=== PATIENT | female | born 1965 | race Caucasian/White ===

== ENCOUNTER 2017-03-02 14:23 | Inpatient (IN) ==
[2017-03-02] MEDS ORDERED: 0.9 % Sodium Chloride 1,000 ML IVC ONE (14:37)
[2017-03-02] MEDS ORDERED: Ondansetron 4 MG/2 ML VIAL IVP ONE (14:37)
[2017-03-02 15:07] LABS: Bilirubin,Urine Negative (Negative); Blood,Urine Moderate (Negative); Clarity,Urine Turbid (Clear); Color,Urine Yellow (Yellow); Glucose,Urine (UA) Normal (Normal); Ketones,Urine Negative (Negative); Leukocyte Esterase,Urine Large (Negative); Nitrite,Urine Negative (Negative); PH,Urine 6.5 pH Units (5.0-8.0); Protein,Urine Negative (Neg-Trace); Specific Gravity,Urine 1.008 (1.010-1.025); Urobilinogen,Urine Normal (Normal)
--- NOTE | 2017-03-02 15:08 | Emergency Department Note ---
Disposition Clinical Impression: Pyelonephritis Disposition: Admitted As Inpatient Condition: Good Referrals: NONE,PCP [Primary Care Provider] - Forms: ED Satisfaction Letter Time of Disposition: 17:23 General Adult HPI - General Chief complaint: ED Headache Stated complaint: "UTI, Diarrhea, and headache" Time Seen by Provider: 03/02/17 14:25 Source: patient, EMS Limitations: no limitations, physical limitation Nursing Notes Reviewed: Yes Vital Signs Reviewed: Yes - History of Present Illness HPI Narrative: 52 year old female presents to the ED via EMS for UTI/diarrhea and a temperature of 100.2 at home for the past 4 days. PAtine states that she has had kidney inections in the past and is now having chest pain without shortness of breath and is also experiencing a headache. Her headache is of usual character with her preivous headaches and has not changed in duration. She denesi neck pain, rigidty, senstivity to light or sound, or auras. Patient states that has has vomitted a few times NBNB, she states her diarrhea is watery without blood. Pain Scale: 10 - Related Data Home Medications Medication Instructions Recorded Confirmed Aripiprazole [Abilify] 15 mg PO DAILY 05/14/15 03/02/17 Aspirin Enteric Coated [Aspirin EC] 81 mg PO DAILY 05/14/15 03/02/17 Metoclopramide [Reglan] 5 mg PO QID 05/14/15 03/02/17 Verapamil [Isoptin] 80 mg PO DAILY 05/14/15 03/02/17 Omeprazole [PriLOSEC] 20 mg PO BID #0 07/03/15 03/02/17 ALPRAZolam [Xanax 0.5 MG Tablet] 0.5 mg PO HS 01/26/16 03/02/17 Acetaminophen [Tylenol] 650 mg PO Q6HR PRN 01/26/16 03/02/17 Bisacodyl [Dulcolax] 10 mg RC Q48H PRN 01/26/16 03/02/17 Cholecalciferol (D-3) [Vitamin D] 1,000 unit PO DAILY 01/26/16 03/02/17 Lactobacillus Acidophilus 1 mg PO DAILY 01/26/16 03/02/17 [Acidophilus Probiotic] Lidocaine HCl [Aspercreme] 1 appl TP TID PRN 01/26/16 03/02/17 Lisinopril-HCTZ 10-12.5 [Prinzide 1 each PO DAILY 01/26/16 03/02/17 10-12.5] Multivitamin [Zoo Chews] 1 each PO DAILY 01/26/16 03/02/17 Nystatin POWDER [Nystop] 1 appl TP BID 01/26/16 03/02/17 Phenyleph/Pramoxin/Glycr/W.pet 1 appl RC QID PRN 01/26/16 03/02/17 [Preparation H Cream] Polyethylene Glycol 3350 [MiraLAX] 17 gm PO DAILY PRN 01/26/16 03/02/17 Pravastatin Sodium [Pravachol] 20 mg PO HS 01/26/16 03/02/17 metFORMIN [Glucophage] 500 mg PO QPM 01/26/16 03/02/17 Oxybutynin Chloride [Ditropan Xl] 10 mg PO BID 03/02/17 03/02/17 Allergies Allergy/AdvReac Type Severity Reaction Status Date / Time alcohol Allergy Rash Verified 09/20/16 12:49 Amoxicillin [From Augmentin] Allergy Rash Verified 09/20/16 12:49 caffeine [From Cafergot] Allergy Rash Verified 09/20/16 12:49 cephalexin Allergy Rash Verified 09/20/16 15:54 clarithromycin [From Biaxin] Allergy Rash Verified 09/20/16 12:49 clavulanic acid Allergy Rash Verified 09/20/16 12:49 [From Augmentin] doxycycline Allergy Rash Verified 09/20/16 12:49 Ergotamine [From Cafergot] Allergy Rash Verified 09/20/16 12:49 nitrofurantoin Allergy Rash Verified 09/20/16 12:49 [From Macrodantin] Oxycodone [From Percocet] Allergy Rash Verified 09/20/16 12:49 Sulfa (Sulfonamide Allergy Rash Verified 09/20/16 12:49 Antibiotics) sulfabenzamide Allergy Rash Verified 09/20/16 12:49 Hydromorphone [From Dilaudid] AdvReac Headache Verified 09/20/16 12:49 morphine AdvReac Headache Verified 09/20/16 12:49 Constitutional: Denies: fever, chills, weakness, weight change Eyes: Denies: eye pain, eye discharge, vision change ENT ED: Denies: ear pain, throat pain, dental pain, hearing loss, epistaxis, congestion, dysphagia Cardiovascular: Denies: chest pain, palpitations, dyspnea on exertion, edema, syncope Respiratory: Denies: cough, dyspnea, wheezes, hemoptysis, stridor Gastrointestinal: Reports: nausea, vomiting, diarrhea. Denies: abdominal pain, constipation, hematemesis, melena, hematochezia Genitourinary: Reports: urgency, dysuria, frequency. Denies: hematuria, discharge Musculoskeletal: Denies: back pain, neck pain, arthralgia, myalgia Integumentary: Denies: rash, abrasion, lesions Neurological: Denies: headache, weakness, numbness, paresthesias, confusion, abnormal gait, vertigo Psychiatric: Denies: anxiety, depression, suicidal thoughts, homicidal thoughts , auditory hallucinations, visual hallucinations Endocrine: Denies: fatigue Hematological/Lymphatic: Denies: easy bleeding, easy bruising Allergic/Immunologic: Denies: facial swelling, urticaria Past Medical History - Past Medical History Medical history: Reports: diabetes, GERD, hyperlipidemia, hypertension, myocardial infarction, other Surgical history: Reports: angioplasty/stent, appendectomy, cholecystectomy, other (colonoscopy, [employer] 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[employer]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, kidney surgery X 6, right oopherectomy, wisdom teeth extraction) Psychiatric history: Reports: anxiety, depression, other - Social History Smoking Status: Never smoker Smokeless Tobacco Status: No Alcohol use: Reports: none Drug use: Reports: none Physical Exam - General Limitations: physical limitation General appearance: alert, in no apparent distress - Head Head exam: atraumatic, normocephalic, normal inspection - Eye Eye exam: Present: normal appearance, PERRL, EOMI - Expanded Eye Exam Pupils: Left: reactive - ENT ENT exam: normal exam, normal oropharynx, mucous membranes moist - Expanded ENT Exam External ear exam: Present: normal external inspection Mouth exam: Present: normal external inspection Teeth exam: Present: normal inspection Throat exam: Present: normal inspection - Neck Neck exam: Present: normal inspection, full ROM, trachea midline - Chest Chest inspection: Present: normal inspection, symmetric chest wall rise - Respiratory Respiratory exam: Present: normal lung sounds bilaterally - Cardiovascular Cardiovascular exam: Present: regular rate, normal rhythm, normal heart sounds - Abdominal Exam Abdominal exam: Present: soft, Non-Tender. Absent: tenderness, distention, guarding, rebound, rigidity - Extremities Exam Extremities exam: Present: normal inspection, full ROM. Absent: tenderness, pedal edema - Expanded Upper Extremity Exam Shoulder exam: Present: normal inspection, full ROM Arm exam: Present: normal inspection, full ROM Elbow exam: Present: normal inspection, full ROM Forearm/Wrist exam: Present: normal inspection, full ROM Hand exam: Present: normal inspection, full ROM Vascular exam: Normal: capillary refill, radial pulse - Expanded Lower Extremity Exam Hip/Pelvis exam: Present: normal inspection, full ROM Upper leg exam: Present: normal inspection, full ROM Knee exam: Present: normal inspection, full ROM Lower leg exam: Present: normal inspection, full ROM Ankle exam: Present: normal inspection, full ROM Foot/toe exam: Present: normal inspection, full ROM Neurovascular/Tendon exam: Absent: motor deficit, sensory deficit, tendon deficit - Back Exam Back exam: Present: normal inspection, full ROM. Absent: tenderness - Neurological Exam Neurological exam: Present: alert, oriented X3 - Expanded Neurological Exam Patient oriented to: Present: person, place, time Coma Scale Eye Opening: Spontaneous Coma Scale Motor Response: Obeys Commands Coma Scale Verbal Response: Oriented Coma Scale Total: 15 - Psychiatric Psychiatric exam: Present: normal affect, normal mood - Skin Skin exam: Present: warm, dry, intact, normal color Course Course Narrative: we will do a sepsis workup on junior and rule out UTI and C.diff - Consultations Consultation #1: discussed case with Dr. Adams and he has accepted junior for admision. Vital Signs Temperature 99.2 F 03/02/17 14:25 Pulse Rate 84 03/02/17 14:25 Respiratory Rate 16 03/02/17 14:25 Blood Pressure 144/80 03/02/17 14:25 O2 Sat by Pulse Oximetry 93 03/02/17 14:25 Temperature 99.2 F 03/02/17 14:25 Pulse Rate 84 03/02/17 14:25 Respiratory Rate 16 03/02/17 14:25 Blood Pressure 144/80 03/02/17 14:25 O2 Sat by Pulse Oximetry 93 03/02/17 14:25 Oxygen Delivery Oxygen Delivery Room Air Medical Decision Making - Lab Data Result diagrams: 03/02/17 15:05 03/02/17 15:05 Lab Results 03/02/17 03/02/17 03/02/17 Range/Units 14:20 15:05 15:05 WBC 13.5 H (4.3-11.1) K/mcL RBC 3.55 L (3.82-4.97) M/mcL Hgb 9.0 L (11.5-15.4) g/dL Hct 28.8 L (35.3-44.9) % MCV 81.1 L (83.0-100.0) fL MCH 25.4 L (28.0-33.3) pg MCHC 31.3 L (31.6-35.5) g/dL RDW 17.5 H (11.5-14.5) % Plt Count 239 (140-400) K/mcL MPV 10.1 (9.4-12.4) fL Immature Gran % 0.4 (0-4) % Seg Neutrophils % 78.0 % Lymphocytes % 13.0 % Monocytes % 8.3 % Eosinophils % 0.1 % Basophils % 0.2 % Neutrophils # 10.6 H (1.6-8.9) K/mcL Lymphocytes # 1.8 (0.6-4.6) K/mcL Monocytes # 1.1 (0.0-1.3) K/mcL Eosinophils # 0.0 (0.0-0.6) K/mcL Basophils # 0.0 (0.0-0.2) K/mcL Immature Plt Fraction 5.3 (1.1-6.1) % PT 11.7 (9.4-12.1) Seconds INR 1.1 APTT 24.3 L (26.0-36.0) Seconds Sodium (136-145) mEq/L Potassium (3.5-4.5) mEq/L Chloride (98-109) mEq/L Carbon Dioxide (19-29) mEq/L BUN (7-20) mg/dL Creatinine (0.57-1.11) mg/dL Est GFR ( Amer) (> 60) Est GFR (Non-Af Amer) (> 60) BUN/Creatinine Ratio (6-26) Glucose (70-99) mg/dL Calculated Osmolality (280-300) Lactic Acid (0.5-2.2) mmol/L Calcium (8.6-10.8) mg/dL Total Bilirubin (0.2-1.2) mg/dL Direct Bilirubin (0.0-0.5) mg/dL Indirect Bilirubin (0.0-1.2) mg/dL AST (5-34) Units/L ALT (0-55) Units/L Alkaline Phosphatase (38-126) Units/L Troponin I (0-0.03) ng/mL Serum Total Protein (6.0-8.3) g/dL Albumin (3.5-5.0) g/dL Globulin (2.4-3.5) g/dL Albumin/Globulin Ratio (1.1-2.2) Amylase (25-125) Units/L Lipase (8-78) Units/L Urine Color Yellow (Yellow) Urine Clarity Turbid A (Clear) Urine pH 6.5 (5.0-8.0) pH Units Ur Specific [place] 1.008 L (1.010-1.025) Urine Protein Negative (Neg-Trace) mg/dL Urine Glucose (UA) Normal (Normal) mg/dL Urine Ketones Negative (Negative) mg/dL Urine Blood Moderate H (Negative) Urine Nitrite Negative (Negative) Urine Bilirubin Negative (Negative) Urine Urobilinogen Normal (Normal) mg/dL Ur Leukocyte Esterase Large H (Negative) Urine Microscopic RBC 0-3 (0-3) per hpf Urine Microscopic WBC TNTC H (0-3) per hpf Ur Squamous Epith Cells Many H (None-Few) per lpf Urine Bacteria Many H (None-Few) per hpf Hyaline Casts Test Not Performed Ur Culture Indicated? YES A (NO) 03/02/17 03/02/17 03/02/17 Range/Units 15:05 15:05 15:05 WBC (4.3-11.1) K/mcL RBC (3.82-4.97) M/mcL Hgb (11.5-15.4) g/dL Hct (35.3-44.9) % MCV (83.0-100.0) fL MCH (28.0-33.3) pg MCHC (31.6-35.5) g/dL RDW (11.5-14.5) % Plt Count (140-400) K/mcL MPV (9.4-12.4) fL Immature Gran % (0-4) % Seg Neutrophils % % Lymphocytes % % Monocytes % % Eosinophils % % Basophils % % Neutrophils # (1.6-8.9) K/mcL Lymphocytes # (0.6-4.6) K/mcL Monocytes # (0.0-1.3) K/mcL Eosinophils # (0.0-0.6) K/mcL Basophils # (0.0-0.2) K/mcL Immature Plt Fraction (1.1-6.1) % PT (9.4-12.1) Seconds INR APTT (26.0-36.0) Seconds Sodium 121 L (136-145) mEq/L Potassium 3.7 (3.5-4.5) mEq/L Chloride 93 L (98-109) mEq/L Carbon Dioxide 18 L (19-29) mEq/L BUN 26 H (7-20) mg/dL Creatinine 0.74 (0.57-1.11) mg/dL Est GFR ( Amer) > 60 (> 60) Est GFR (Non-Af Amer) > 60 (> 60) BUN/Creatinine Ratio 35 H (6-26) Glucose 85 (70-99) mg/dL Calculated Osmolality 256 L (280-300) Lactic Acid 0.5 (0.5-2.2) mmol/L Calcium 8.8 (8.6-10.8) mg/dL Total Bilirubin 0.8 (0.2-1.2) mg/dL Direct Bilirubin 0.3 (0.0-0.5) mg/dL Indirect Bilirubin 0.5 (0.0-1.2) mg/dL AST 24 (5-34) Units/L ALT 24 (0-55) Units/L Alkaline Phosphatase 144 H (38-126) Units/L Troponin I 0.00 (0-0.03) ng/mL Serum Total Protein 6.7 (6.0-8.3) g/dL Albumin 2.9 L (3.5-5.0) g/dL Globulin 3.8 H (2.4-3.5) g/dL Albumin/Globulin Ratio 0.8 L (1.1-2.2) Amylase 44 (25-125) Units/L Lipase 12 (8-78) Units/L Urine Color (Yellow) Urine Clarity (Clear) Urine pH (5.0-8.0) pH Units Ur Specific [place] (1.010-1.025) Urine Protein (Neg-Trace) mg/dL Urine Glucose (UA) (Normal) mg/dL Urine Ketones (Negative) mg/dL Urine Blood (Negative) Urine Nitrite (Negative) Urine Bilirubin (Negative) Urine Urobilinogen (Normal) mg/dL Ur Leukocyte Esterase (Negative) Urine Microscopic RBC (0-3) per hpf Urine Microscopic WBC (0-3) per hpf Ur Squamous Epith Cells (None-Few) per lpf Urine Bacteria (None-Few) per hpf Hyaline Casts Ur Culture Indicated? (NO)
[2017-03-02 15:10] LABS: Bacteria,Urine Many per hpf (None-Few); RBC,Urine 0-3 per hpf (0-3); Squamous Epithelial Cell,Urine Many per lpf (None-Few); WBC,Urine TNTC per hpf (0-3)
[2017-03-02 15:14] LABS: Basophils % 0.2 %; Eosinophils % 0.1 %; Hematocrit 28.8 % (35.3-44.9); Immature Granulocytes % 0.4 % (0-4); Immature Platelets 5.3 % (1.1-6.1); Lymphocytes # 1.8 K/mcL (0.6-4.6); Mean Corpuscular HGB Conc 31.3 g/dL (31.6-35.5); Mean Corpuscular Hemoglobin 25.4 pg (28.0-33.3); Mean Corpuscular Volume 81.1 fL (83.0-100.0); Mean Platelet Volume 10.1 fL (9.4-12.4); Monocytes # 1.1 K/mcL (0.0-1.3); Monocytes % 8.3 %; Neutrophils # 10.6 K/mcL (1.6-8.9); Platelet Count 239 K/mcL (140-400); Red Blood Count 3.55 M/mcL (3.82-4.97); Red Cell Distribution Width 17.5 % (11.5-14.5)
[2017-03-02 15:27] LABS: INR 1.1; Prothrombin Time 11.7 Seconds (9.4-12.1)
[2017-03-02 15:30] LABS: Activated Partial Thrombo Time 24.3 Seconds (26.0-36.0)
[2017-03-02 15:33] LABS: Alanine Aminotransferase 24 Units/L (0-55); Albumin 2.9 g/dL (3.5-5.0); Albumin/Globulin Ratio 0.8 (1.1-2.2); Alkaline Phosphatase 144 Units/L (38-126); Amylase 44 Units/L (25-125); Aspartate Amino Transferase 24 Units/L (5-34); BUN/Creatinine Ratio 35 (6-26); Bilirubin,Direct 0.3 mg/dL (0.0-0.5); Bilirubin,Indirect 0.5 mg/dL (0.0-1.2); Bilirubin,Total 0.8 mg/dL (0.2-1.2); Blood Urea Nitrogen 26 mg/dL (7-20); Calcium 8.8 mg/dL (8.6-10.8); Carbon Dioxide 18 mEq/L (19-29); Chloride 93 mEq/L (98-109); Globulin 3.8 g/dL (2.4-3.5); Glucose 85 mg/dL (70-99); Lipase 12 Units/L (8-78); Osmolality,Calculated 256 (280-300); Potassium 3.7 mEq/L (3.5-4.5); Sodium 121 mEq/L (136-145); Total Protein 6.7 g/dL (6.0-8.3); eGFR For African Americans > 60 (> 60); eGFR For Non-African Americans > 60 (> 60)
[2017-03-02] MEDS ORDERED: Piperacillin/Tazobactam 3.375 GM in D5% in Water (Mini-Bag+) 100 ML IVPB ONE (15:34)
[2017-03-02] MEDS ORDERED: Naloxone 0.4 MG/ML INJ IVP PRN (19:05)
[2017-03-02] MEDS ORDERED: *HR* Dextrose 50 % in Water (Syg) 50 ML SYRINGE IVP PRN (19:12)
[2017-03-02] MEDS ORDERED: Dextrose Gel 15 GM PO PRN ×2 (19:12)
[2017-03-02] MEDS ORDERED: D5% in Water 1,000 ML IVC PRN (19:12)
--- NOTE | 2017-03-02 19:16 | Internal Med History&Physical ---
<Carla Khoury - Last Filed: 03/02/17 20:12> Date of Encounter: 03/02/17 Time of Encounter: 19:14 Assessment and Plan (1) Pyelonephritis Current visit: Yes Status: Acute hx recurrent UTIs (straight caths self at home). Symptomatic with fever, chills , flank pain. WBC 13K, lactic acid normal. ABD CT with right perinephric fat stranding and retroperitoneal adenopathy concerning for pyelonephritis, hydronephrosis and hydroureter extending to the ileal conduit (not significantly changed from previous). Last urine culture with Escherichia coli, sensitive to Zosyn. Continue Zosyn that was started in the ED. Renal ultrasound pending. Nephrology consulted. (2) Anemia Current visit: Yes Status: Acute Hgb 9; previously 12. Denies melena, no hematochezia. Patient reports bleeding hemorrhoids at times. No obvious bleeding on exam, hemodynamically stable. Check occult stool, monitor H&H. Iron studies pending. Qualifiers: Anemia type: unspecified type Qualified Code(s): D64.9 - Anemia, unspecified (3) Hyponatremia Current visit: Yes Status: Acute Na 120; baseline normal. Neurologically intact on exam, continue IV fluids. [place] home HCTZ. Monitor repeat CMP. Nephrology consulted (4) Diabetes Current visit: No Status: Chronic per hx. holding home oral hypoglycemics. SSI while inpatient. Monitor blood sugar and titrate PRN Qualifiers: Diabetes mellitus type: type 2 Diabetes mellitus complication status: with unspecified complications Diabetes mellitus senior care insulin use: unspecified senior care insulin use status Qualified Code(s): E11.8 - Type 2 diabetes mellitus with unspecified complications (5) CAD (coronary artery disease) Current visit: Yes Status: Acute per hx. Asymptomatic, denies chest pain. Cont ASA, CCB, statin Qualifiers: Coronary Disease-Associated Artery/Lesion type: [place] artery Associated angina: without angina Qualified Code(s): I25.10 - Atherosclerotic heart disease of [place] coronary artery without angina pectoris (6) HTN (hypertension) Current visit: No Status: Chronic per hx. BP variable but controlled. Cont home CCB, holding HCTZ with hyponatremia. Monitor BP and titrate PRN Qualifiers: Hypertension type: essential hypertension Qualified Code(s): I10 - Essential (primary) hypertension (7) Spina bifida Current visit: No Status: Chronic Per history. Appears at baseline, supportive care. Plan to return home with home healthcare. Qualifiers: Qualified Code(s): Q05.9 - Spina bifida, unspecified (8) DVT prophylaxis Current visit: No Status: Acute SCDs Internal Medicine - H&P: HPI Chief complaint: I have a UTI Admitted From: Home Plans for Post Hospital Care: Home History of present illness: Ms. Mitchell is a 52 year old female with PMH spina bifida, CAD, hypertension, diabetes and recurrent UTIs who presented to [facility] on 03/02/2017 with complaints of fevers chills and low back pain. She was found to have pyelonephritis and was admitted for IV ATB. Information obtained from chart review and patient report. Patient says she knows when she has a UTI and sx's consistent with previous UTIs. She reports fevers, chills, lower back pain and dysuira for the last few days. Sx's have gotten progressively worse, nothing makes better. Says she has hemorrhoids that bleed when she is constipated. 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, kidney surgery X 6, right oopherectomy, wisdom teeth extraction) - Social History Smoking Status: Never smoker Smokeless Tobacco Status: No Alcohol use: none Drug use: none - Family History Mother Adopted: No Family Member Ethnicity: Non- Living Status: Still Living Hx Family Cardiac Disorders: Yes (angina heart failure) Hx Family Respiratory Disorders: No Hx Family Cancer: No Hx Family GI Disorders: No Hx Family Endocrine Disorder: No Hx Family Neuromuscular Disorders: No Hx Family Neurologic Disorders: No Hx Family HEENT Disorders: No Hx Family Autoimmune Disorders: No Internal Medicine - H&P: Meds Aripiprazole [Abilify] 15 mg PO DAILY 05/14/15 [History] Aspirin Enteric Coated [Aspirin EC] 81 mg PO DAILY 05/14/15 [History] Metoclopramide [Reglan] 5 mg PO QID 05/14/15 [History] Verapamil [Isoptin] 80 mg PO DAILY 05/14/15 [History] Omeprazole [PriLOSEC] 20 mg PO BID #0 07/03/15 [History] ALPRAZolam [Xanax 0.5 MG Tablet] 0.5 mg PO HS 01/26/16 [History] Acetaminophen [Tylenol] 650 mg PO Q6HR PRN 01/26/16 [History] Bisacodyl [Dulcolax] 10 mg RC Q48H PRN 01/26/16 [History] Cholecalciferol (D-3) [Vitamin D] 1,000 unit PO DAILY 01/26/16 [History] Lactobacillus Acidophilus [Acidophilus Probiotic] 1 mg PO DAILY 01/26/16 [ History] Lidocaine HCl [Aspercreme] 1 appl TP TID PRN 01/26/16 [History] Lisinopril-HCTZ 10-12.5 [Prinzide 10-12.5] 1 each PO DAILY 01/26/16 [History] Multivitamin [Zoo Chews] 1 each PO DAILY 01/26/16 [History] Nystatin POWDER [Nystop] 1 appl TP BID 01/26/16 [History] Phenyleph/Pramoxin/Glycr/W.pet [Preparation H Cream] 1 appl RC QID PRN 01/26/16 [History] Polyethylene Glycol 3350 [MiraLAX] 17 gm PO DAILY PRN 01/26/16 [History] Pravastatin Sodium [Pravachol] 20 mg PO HS 01/26/16 [History] metFORMIN [Glucophage] 500 mg PO QPM 01/26/16 [History] Oxybutynin Chloride [Ditropan Xl] 10 mg PO BID 03/02/17 [History] 3 Allergy/AdvReac Type Severity Reaction Status Date / Time alcohol Allergy Rash Verified 09/20/16 12:49 Amoxicillin [From Augmentin] Allergy Rash Verified 09/20/16 12:49 caffeine [From Cafergot] Allergy Rash Verified 09/20/16 12:49 cephalexin Allergy Rash Verified 09/20/16 15:54 clarithromycin [From Biaxin] Allergy Rash Verified 09/20/16 12:49 clavulanic acid Allergy Rash Verified 09/20/16 12:49 [From Augmentin] doxycycline Allergy Rash Verified 09/20/16 12:49 Ergotamine [From Cafergot] Allergy Rash Verified 09/20/16 12:49 nitrofurantoin Allergy Rash Verified 09/20/16 12:49 [From Macrodantin] Oxycodone [From Percocet] Allergy Rash Verified 09/20/16 12:49 Sulfa (Sulfonamide Allergy Rash Verified 09/20/16 12:49 Antibiotics) sulfabenzamide Allergy Rash Verified 09/20/16 12:49 Hydromorphone [From Dilaudid] AdvReac Headache Verified 09/20/16 12:49 morphine AdvReac Headache Verified 09/20/16 12:49 All Systems PM: A 10-system review of systems was performed and is negative for pertinent findings except as documented above in the HPI. - Constitutional Constitutional: chills, fatigue, fever(s), no night sweats - EENT Eyes: no change in vision, no discharge, no pain, no photophobia Ears: no ear discharge, no ear pain, no tinnitus Nose, mouth and throat: no dysphagia, no nasal discharge, no neck pain, no sore throat - Cardiovascular Cardiovascular ROS IM: no chest pain, no diaphoresis, no dyspnea, no lightheadedness, no palpitations, no syncope - Respiratory Respiratory: no cough, no dyspnea, no wheezing, no excessive phlegm production - Gastrointestinal Gastrointestinal: no abdominal pain, no diarrhea, no hematemesis, no hematochezia, no melena, no nausea, no vomiting - Genitourinary Genitourinary: difficulty voiding, dysuria, flank pain, no change in urinary stream, no hematuria - Musculoskeletal Musculoskeletal ROS IM: no numbness, no tingling - Integumentary Integumentary IM: no rash, no unusual bruising - Neurological Neurological ROS: no confusion, no convulsions, no focal weakness, no numbness, no tingling, no tremor(s) - Hematologic/Lymphatic Hematologic/Lymphatic: no easy bruising - Constitutional Vitals: Temp Pulse Resp BP Pulse Ox 99.2 F 84 18 108/54 93 03/02/17 14:25 03/02/17 14:25 03/02/17 17:59 03/02/17 17:59 03/02/17 14:25 General appearance: Present: A&O X 3, no acute distress - Head Head exam: Present: atraumatic, normocephalic - Eye Eye exam: Present: PERRL, conjuntiva pink, sclera anicteric Pupils: Present: PERRL - Neck Neck exam general surgery: Present: supple, trachea midline. Absent: lymphadenopathy - Respiratory Respiratory exam: Present: CTAB. Absent: accessory muscle use, rales, rhonchi, wheezes - Cardiovascular Cardiovascular exam: Present: RRR, +S1, +S2. Absent: diastolic murmur, gallop, rubs, systolic murmur - GI/Abdominal GI/Abdominal exam: Present: normal bowel sounds, soft, no peritoneal signs. Absent: distended, tenderness - Extremities Exam Extremities exam: Present: pedal edema, warm, radial pulses palpable and symmetrical. Absent: calf tenderness, cyanotic - Neurological Exam Neurological exam: Present: CN II-XII intact, oriented X3, no focal deficits. Absent: pronater drift, facial droop, speech deficit - Skin Skin exam: Present: dry, intact Internal Med - H&P Results - Labs CBC & Chem 7: 03/02/17 15:05 03/02/17 15:05 <Virginia Ma - Last Filed: 03/02/17 23:27> Date of Encounter: 03/02/17 Internal Medicine - H&P: HPI History of present illness: Ms. Mitchell is a 52 year old female All Systems PM: A 10-system review of systems was performed and is negative for pertinent findings except as documented above in the HPI. - Constitutional Vitals: Temp Pulse Resp BP Pulse Ox 98.8 F 95 14 129/60 94 03/02/17 19:55 03/02/17 19:55 03/02/17 19:55 03/02/17 19:55 03/02/17 19:55 Internal Med - H&P Results - Labs CBC & Chem 7: 03/02/17 21:58 03/02/17 15:05 Labs: Short CBC 03/02/17 Range/Units 21:58 Hgb 9.5 L (11.5-15.4) g/dL Hct 30.4 L (35.3-44.9) % - Attending Attestation I have seen and examined the patient independently. 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 Khoury regarding management plan. I have reviewed and agree with the documentation. Patient has history of spina bifida, has difficult for urination, needs self catheter at home. Multiple hospitalization for UTI. Will consider pyelonephritis based on CT imaging. Continue IV fluid and IV Zosyn. Closely monitor patient. Patient has hyponatremia, place her on IV 0.9% saline, closely monitor sodium level, goal is correction not over 8-10 mEq in first 24 hours.
[2017-03-02] MEDS ORDERED: ALPRAZolam 0.5 MG TABLET PO SCH (21:00)
[2017-03-02] MEDS: Acetaminophen 325 MG TABLET PO PRN (21:14)
[2017-03-02] MEDS: 0.9 % Sodium Chloride 1,000 ML IVC SCH (21:44)
[2017-03-02 22:08] LABS: Hematocrit 30.4 % (35.3-44.9); Hemoglobin 9.5 g/dL (11.5-15.4)
[2017-03-02] MEDS: Ondansetron 4 MG/2 ML VIAL IVP PRN (22:19)
[2017-03-02] MEDS: Insulin LISPRO 300 UNITS/3 ML VIAL SQ SCH (22:20)
[2017-03-02] MEDS: Piperacillin/Tazobactam 3.375 GM in D5% in Water (Mini-Bag+) 100 ML IVPB SCH (23:56)
[2017-03-03 05:54] LABS: Immature Platelets 4.9 % (1.1-6.1); Mean Corpuscular Hemoglobin 25.4 pg (28.0-33.3); Mean Corpuscular Volume 81.9 fL (83.0-100.0); Mean Platelet Volume 10.6 fL (9.4-12.4); Red Blood Count 3.54 M/mcL (3.82-4.97); Red Cell Distribution Width 17.6 % (11.5-14.5)
[2017-03-03 06:03] LABS: % Iron Saturation 6 % (15-50); Alanine Aminotransferase 23 Units/L (0-55); Albumin 2.7 g/dL (3.5-5.0); Albumin/Globulin Ratio 0.7 (1.1-2.2); Alkaline Phosphatase 126 Units/L (38-126); Aspartate Amino Transferase 18 Units/L (5-34); BUN/Creatinine Ratio 22 (6-26); Bilirubin,Total 0.6 mg/dL (0.2-1.2); Blood Urea Nitrogen 17 mg/dL (7-20); Calcium 8.8 mg/dL (8.6-10.8); Carbon Dioxide 20 mEq/L (19-29); Chloride 105 mEq/L (98-109); Globulin 3.9 g/dL (2.4-3.5); Glucose 71 mg/dL (70-99); Iron 17 mcg/dL (50-170); Osmolality,Calculated 284 (280-300); Potassium 3.5 mEq/L (3.5-4.5); Total Protein 6.6 g/dL (6.0-8.3); Transferrin 203 mg/dL (180-382); eGFR For African Americans > 60 (> 60); eGFR For Non-African Americans > 60 (> 60)
[2017-03-03 06:04] LABS: Sodium 137 mEq/L (136-145)
--- NOTE | 2017-03-03 08:34 | Nephrology Consult Note ---
Date of Encounter: 03/03/17 Time of Encounter: 08:05 Assessment and Plan (1) Hyponatremia Current Visit: Yes Status: Acute Hyponatremia most likely in setting of GI losses with HCTZ contributing. Normal sodium levels prior. Sodium corrected 137. Renal fct normal. TSH, Cortisol and Renal US pending. Would continue IV fluids until oral intake adequate. Will continue to monitor. History of Present Illness - Reason for Consult hyponatremia - History of Present Illness Ms. Mitchell is a 52 year old female with UTI, diarrhea and vomiting for past 4 days with temp 100.2 at home. Also complained of chest pain and headache. PMH of chronic UTI's in setting of urological reconstruction in setting of spina bifida, paraplegic. Straight caths every 4-6 hours so as not to be incontinent of urine. 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 Initial labs: Sodium 121, K 3.7, bicarb 18, creat 0.74, GFR > 60, Hgb 9.5, tsat 6. Urine culture, TSH, cortisol pending. IV 0.9 NS at 100/hr. Last urine culture with Escherichia coli, sensitive to Zosyn. Zosyn continued. CT Abd/ Pelvis-right perinephric stranding and retroperitoneal adenopathy concerning for pyelonephritis. Degree of hydronephrosis and hydroureter not substantially changed from previous exam. Absent urinary bladder. Ms. Mitchell denies excessive fluid intake, drinks 3-16 ounce bottles of water a day. States prior to recent illness, eats normal amounts of fluids. Home meds noted on HCTZ 12.5 mg daily, denies any psych medications. SToday Sodium 137. Past Med Surg Social Fam HX - Past Medical History Medical history: diabetes, GERD, hyperlipidemia, hypertension, myocardial infarction, other Psychiatric history: anxiety, depression, other - Past Surgical History Surgical History: angioplasty/stent, appendectomy, cholecystectomy, other - Social History Smoking Status: Never smoker Smokeless Tobacco Status: No Alcohol use: none Drug use: none - Family History Mother Adopted: No Family Member Ethnicity: Non- Living Status: Still Living Hx Family Cardiac Disorders: Yes (angina heart failure) Hx Family Respiratory Disorders: No Hx Family Cancer: No Hx Family GI Disorders: No Hx Family Endocrine Disorder: No Hx Family Neuromuscular Disorders: No Hx Family Neurologic Disorders: No Hx Family HEENT Disorders: No Hx Family Autoimmune Disorders: No Medications and Allergies Aripiprazole [Abilify] 15 mg PO DAILY 05/14/15 [History] Aspirin Enteric Coated [Aspirin EC] 81 mg PO DAILY 05/14/15 [History] Metoclopramide [Reglan] 5 mg PO QID 05/14/15 [History] Verapamil [Isoptin] 80 mg PO DAILY 05/14/15 [History] Omeprazole [PriLOSEC] 20 mg PO BID #0 07/03/15 [History] ALPRAZolam [Xanax 0.5 MG Tablet] 0.5 mg PO HS 01/26/16 [History] Acetaminophen [Tylenol] 650 mg PO Q6HR PRN 01/26/16 [History] Bisacodyl [Dulcolax] 10 mg RC Q48H PRN 01/26/16 [History] Cholecalciferol (D-3) [Vitamin D] 1,000 unit PO DAILY 01/26/16 [History] Lactobacillus Acidophilus [Acidophilus Probiotic] 1 mg PO DAILY 01/26/16 [ History] Lidocaine HCl [Aspercreme] 1 appl TP TID PRN 01/26/16 [History] Lisinopril-HCTZ 10-12.5 [Prinzide 10-12.5] 1 each PO DAILY 01/26/16 [History] Multivitamin [Zoo Chews] 1 each PO DAILY 01/26/16 [History] Nystatin POWDER [Nystop] 1 appl TP BID 01/26/16 [History] Phenyleph/Pramoxin/Glycr/W.pet [Preparation H Cream] 1 appl RC QID PRN 01/26/16 [History] Polyethylene Glycol 3350 [MiraLAX] 17 gm PO DAILY PRN 01/26/16 [History] Pravastatin Sodium [Pravachol] 20 mg PO HS 01/26/16 [History] metFORMIN [Glucophage] 500 mg PO QPM 01/26/16 [History] Oxybutynin Chloride [Ditropan Xl] 10 mg PO BID 03/02/17 [History] 3 Allergy/AdvReac Type Severity Reaction Status Date / Time alcohol Allergy Rash Verified 09/20/16 12:49 Amoxicillin [From Augmentin] Allergy Rash Verified 09/20/16 12:49 caffeine [From Cafergot] Allergy Rash Verified 09/20/16 12:49 cephalexin Allergy Rash Verified 09/20/16 15:54 clarithromycin [From Biaxin] Allergy Rash Verified 09/20/16 12:49 clavulanic acid Allergy Rash Verified 09/20/16 12:49 [From Augmentin] doxycycline Allergy Rash Verified 09/20/16 12:49 Ergotamine [From Cafergot] Allergy Rash Verified 09/20/16 12:49 nitrofurantoin Allergy Rash Verified 09/20/16 12:49 [From Macrodantin] Oxycodone [From Percocet] Allergy Rash Verified 09/20/16 12:49 Sulfa (Sulfonamide Allergy Rash Verified 09/20/16 12:49 Antibiotics) sulfabenzamide Allergy Rash Verified 09/20/16 12:49 Hydromorphone [From Dilaudid] AdvReac Headache Verified 09/20/16 12:49 morphine AdvReac Headache Verified 09/20/16 12:49 Review of Systems All Systems: reviewed and no additional remarkable complaints except as stated Exam - Vital Signs Vital signs: Initial Vital Signs Temp Pulse Resp BP Pulse Ox 99.2 F 84 16 144/80 93 03/02/17 14:25 03/02/17 14:25 03/02/17 14:25 03/02/17 14:25 03/02/17 14:25 Vital Signs - Last 8 Hours Temp Pulse Resp BP Pulse Ox 03/03/17 06:42 99.1 F 89 14 110/70 92 03/03/17 04:00 98.3 F 89 14 106/72 90 03/03/17 00:38 98.8 F 98 14 92/63 96 Intake and Output 03/02/17 03/03/17 03/03/17 23:59 07:59 15:59 Intake Total 0 / 100 1394 / 1394 Output Total 1000 / 1000 2400 / 2400 Balance -1000 / -900 -1006 / -1006 Intake: IV Fluids 624 / 624 0.9 % Sodium Chloride 1, 524 / 524 000 ML @ 100 mls/hr IVC . Q10H [facility] Rx#:[id number] Zosyn 3.375 GM In 100 / 100 Dextrose 5% (Minibag+) 100 ML 100 ML @ 25 mls/hr IVPB Q8HR [facility] Rx#: [id number] Oral 0 / 0 770 / 770 Output: Catheter 1000 / 1000 2400 / 2400 Other: Stool Size Moderate Stool Consistency soft formed Stool Color Brown # Bowel Movement Diapers 4 0 Weight 63.458 kg 63.095 kg Blood Glucose* 73 Patient Weight 03/03/17 23:59 Weight 63.095 kg - General Appearance General appearance: well-developed, well-nourished, appears started age EENT: mucous membranes moist Neck: no JVD Respiratory: clear Cardiology: no edema, regular rate, regular rhythm Gastrointestinal: normoactive bowel sounds, no tenderness Integumentary: warm and dry Neurologic: alert and oriented x3 Psychiatric: mood/affect appropriate, cooperative Results - Lab Results 03/03/17 05:36 03/03/17 05:36 Most recent lab results Calcium 8.8 mg/dL (8.6-10.8) 03/03/17 05:36 Consult Discharge Plan - Plan Referrals: Lorena Velazquez MD [Primary Care Provider] -
[2017-03-03] MEDS: ARIPiprazole 5 MG TABLET PO SCH (08:35)
[2017-03-03] MEDS: Aspirin Enteric Coated 81 MG Tablet PO SCH (08:35)
[2017-03-03] MEDS: 0.9 % Sodium Chloride 1,000 ML IVC SCH (08:36)
[2017-03-03] MEDS: Insulin LISPRO 300 UNITS/3 ML VIAL SQ SCH ×4 (08:36→20:46)
[2017-03-03] MEDS: Piperacillin/Tazobactam 3.375 GM in D5% in Water (Mini-Bag+) 100 ML IVPB SCH ×3 (08:36→23:13)
[2017-03-03 08:48] LABS: Thyroid Stimulating Hormone 2.224 mcIU/mL (0.350-4.840)
--- NOTE | 2017-03-03 09:12 | Internal Med Progress Note ---
<[email or web address] fuller - Last Filed: 03/03/17 14:43> Date of Encounter: 03/03/17 Time of Encounter: 08:15 - Assessment and plan (1) Pyelonephritis Current Visit: Yes Status: Acute Assessment and plan: Hx of recurrent UTIs, patient straight caths at home 2/2 to paraplegia 2/2 spina bifida. pt last had UTI 12/29 with E. Coli sensitive to zosyn. CT abd shows fat stranding and retroperitoneal adenopathy consistent with pyelonephritis. Nephrology on board. UA showed blood, leuk esterase, TNTC WBC, man squams, many bacteria. WBC down from 13.5 to 8.9 Prelim Urine Cx growing E. Coli Continue Zosyn (2) Hyponatremia Current Visit: Yes Status: Acute Assessment and plan: resolved. likely secondary to GI loses. Patient Na 120 on admission. Patient was given NS 0.9% Na 137 this morning. Fluids were stopped. No neurological deficits on exam. TSH, cortisol normal. continue to monitor (3) Anemia Current Visit: Yes Status: Acute Assessment and plan: Patient's Hgb 9.0 on admission. Hgbs 9.5, 9.0, 9.1 subsequently last hgb prior to admission 09/20/16 was 12.6 micorcytic Likely Iron deficiency 2/2 to blood loss patient has hx of bleeding hemorrhoids. Patient hemodynamically stable. No signs of bleeding on exam. Iron 17, % Saturation 6, Transferrin 203 continue to monitor. Transfuse if less than 7 Qualifiers: Anemia type: unspecified type Qualified Code(s): D64.9 - Anemia, unspecified (4) Diabetes Current Visit: No Status: Chronic Assessment and plan: Chronic, Stable. continue SSI, Diabetic diet, acuchecks Qualifiers: Diabetes mellitus type: type 2 Diabetes mellitus complication status: with unspecified complications Diabetes mellitus fdc insulin use: unspecified fdc insulin use status Qualified Code(s): E11.8 - Type 2 diabetes mellitus with unspecified complications (5) HTN (hypertension) Current Visit: No Status: Chronic Assessment and plan: Chronic, stable. Continue CCB continue to hold HCTZ Qualifiers: Hypertension type: essential hypertension Qualified Code(s): I10 - Essential (primary) hypertension (6) Spina bifida Current Visit: No Status: Chronic Assessment and plan: Chronic, Stable. Qualifiers: Spinal region: unspecified Presence of hydrocephalus: unspecified hydrocephalus presence Qualified Code(s): Q05.9 - Spina bifida, unspecified (7) CAD (coronary artery disease) Current Visit: Yes Status: Acute Assessment and plan: Chronic, Stable. No current CP. Continue home meds. Qualifiers: Coronary Disease-Associated Artery/Lesion type: [place] artery Associated angina: without angina Qualified Code(s): I25.10 - Atherosclerotic heart disease of [place] coronary artery without angina pectoris - Subjective Interval history: Pt seen and examined by me at bedside. Patient reports low back pain, diarrhea, dysuria. Patient was recently treated for an ecoli UTI/pyelonephritis at the end of december that was sensitive to zosyn. - Constitutional Vitals: Temp Pulse Resp BP Pulse Ox 99.1 F 89 14 110/70 92 03/03/17 06:42 03/03/17 06:42 03/03/17 06:42 03/03/17 06:42 03/03/17 08:51 General appearance: Present: A&O X 3, no acute distress - Head Head exam: Present: atraumatic, normocephalic - Eye Eye exam: Present: PERRL, conjuntiva pink, sclera anicteric Pupils: Present: PERRL - Neck Neck exam general surgery: Present: supple, trachea midline - Respiratory Respiratory exam: Present: CTAB. Absent: accessory muscle use, rales, rhonchi, wheezes - Cardiovascular Cardiovascular exam: Present: RRR, +S1, +S2. Absent: diastolic murmur, gallop, rubs, systolic murmur - GI/Abdominal GI/Abdominal exam: Present: normal bowel sounds, soft, tenderness (RUQ), no peritoneal signs. Absent: distended - Extremities Exam Extremities exam: Present: warm. Absent: calf tenderness, cyanotic, pedal edema - Back Exam Back exam: Present: CVA tenderness (R) - Neurological Exam Neurological exam: Present: alert, oriented X3, no focal deficits. Absent: facial droop, speech deficit - Skin Skin exam: Present: dry, intact Internal Medicine: Result - Labs CBC & Chem 7: 03/03/17 13:37 03/03/17 05:36 Labs: Short CBC 03/02/17 03/03/17 Range/Units 21:58 05:36 WBC 8.9 (4.3-11.1) K/mcL Hgb 9.5 L 9.0 L (11.5-15.4) g/dL Hct 30.4 L 29.0 L (35.3-44.9) % Plt Count 224 (140-400) K/mcL BMP 03/03/17 05:36 Sodium 137 D Potassium 3.5 Chloride 105 Carbon Dioxide 20 BUN 17 Creatinine 0.77 Glucose 71 Calcium 8.8 Liver Function 03/03/17 Range/Units 05:36 Total Bilirubin 0.6 (0.2-1.2) mg/dL AST 18 (5-34) Units/L ALT 23 (0-55) Units/L Alkaline Phosphatase 126 (38-126) Units/L Albumin 2.7 L (3.5-5.0) g/dL - ABG Interpretation ABG results: PT/INR, D-dimer PT 11.7 Seconds (9.4-12.1) 03/02/17 15:05 Consult Discharge Plan - Plan Referrals: Lorena Velazquez MD [Primary Care Provider] - 03/11/17 10:45 am <Meek Coronado - Last Filed: 03/03/17 19:53> Date of Encounter: 03/03/17 - Assessment and plan (1) Acute pyelonephritis Current Visit: Yes Status: Acute (2) CAD (coronary artery disease) Current Visit: Yes Status: Acute Qualifiers: Coronary Disease-Associated Artery/Lesion type: [place] artery Associated angina: without angina Qualified Code(s): I25.10 - Atherosclerotic heart disease of [place] coronary artery without angina pectoris (3) Hyponatremia Current Visit: Yes Status: Acute (4) Diabetes Current Visit: No Status: Chronic Qualifiers: Diabetes mellitus type: type 2 Diabetes mellitus complication status: with unspecified complications 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 mellitus terminal gauger insulin use: unspecified terminal gauger insulin use status Qualified Code(s): E11.8 - Type 2 diabetes mellitus with unspecified complications (5) HTN (hypertension) Current Visit: No Status: Chronic Qualifiers: Hypertension type: essential hypertension Qualified Code(s): I10 - Essential (primary) hypertension (6) Spina bifida Current Visit: No Status: Chronic Qualifiers: Spinal region: unspecified Presence of hydrocephalus: without hydrocephalus Qualified Code(s): Q05.9 - Spina bifida, unspecified - Constitutional Vitals: Temp Pulse Resp BP Pulse Ox 98.5 F 76 14 96/63 92 03/03/17 14:31 03/03/17 14:31 03/03/17 14:31 03/03/17 14:31 03/03/17 14:31 Internal Medicine: Result - Labs CBC & Chem 7: 03/03/17 13:37 03/03/17 05:36 Labs: Short CBC 03/02/17 03/03/17 03/03/17 Range/Units 21:58 05:36 13:37 WBC 8.9 (4.3-11.1) K/mcL Hgb 9.5 L 9.0 L 9.1 L (11.5-15.4) g/dL Hct 30.4 L 29.0 L 29.2 L (35.3-44.9) % Plt Count 224 (140-400) K/mcL BMP 03/03/17 05:36 Sodium 137 D Potassium 3.5 Chloride 105 Carbon Dioxide 20 BUN 17 Creatinine 0.77 Glucose 71 Calcium 8.8 Liver Function 03/03/17 Range/Units 05:36 Total Bilirubin 0.6 (0.2-1.2) mg/dL AST 18 (5-34) Units/L ALT 23 (0-55) Units/L Alkaline Phosphatase 126 (38-126) Units/L Albumin 2.7 L (3.5-5.0) g/dL - ABG Interpretation ABG results: PT/INR, D-dimer PT 11.7 Seconds (9.4-12.1) 03/02/17 15:05 - Impressions Impressions Retroperitoneum Ultrasound 03/03/17 08:30 IMPRESSION: 1. Persistent though decreased minimal bilateral hydronephrosis. 2. Irregular renal contours consistent with multifocal scarring seen on CT. No definite findings of underlying parenchymal disease. 3. 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 D/ / Moses Sanchez MD / Moses Sanchez MD Interpreting Provider: Moses Sanchez MD - Attending Attestation I examined this patient and my medical decision-making was reviewed with the Resident Physician on 03/03/17. I agree with the documented findings, disposition and treatment plan as described except to the extent set forth below. Ms. Mitchell is currently admitted for acute pyelonephritis. She is moderate to high risk due to potential for worsening infectious status. Ms. Mitchell is still having some loose stool. No fever or chills. No CP or SOB. Has some pain. Exam Alert. Comfortable Heart reg with murmur Lungs clear Abd soft I/P 1. Acute pyelo 2. Spina bifida Further diagnoses and plan as above.
[2017-03-03] MEDS: Acetaminophen 325 MG TABLET PO PRN ×2 (11:51→20:45)
[2017-03-03 14:07] LABS: Hematocrit 29.2 % (35.3-44.9); Hemoglobin 9.1 g/dL (11.5-15.4)
[2017-03-03] MEDS ORDERED: ALPRAZolam 0.5 MG TABLET PO ONE (20:55)
[2017-03-04] MEDS: Acetaminophen 325 MG TABLET PO PRN ×3 (04:19→15:24)
[2017-03-04 05:12] LABS: Basophils % 0.4 %; Eosinophils # 0.1 K/mcL (0.0-0.6); Eosinophils % 1.6 %; Hematocrit 27.4 % (35.3-44.9); Hemoglobin 8.3 g/dL (11.5-15.4); Immature Granulocytes % 0.4 % (0-4); Lymphocytes # 2.1 K/mcL (0.6-4.6); Lymphocytes % 30.5 %; Mean Corpuscular HGB Conc 30.3 g/dL (31.6-35.5); Mean Corpuscular Volume 82.5 fL (83.0-100.0); Mean Platelet Volume 10.2 fL (9.4-12.4); Monocytes # 0.8 K/mcL (0.0-1.3); Monocytes % 11.8 %; Neutrophils # 3.8 K/mcL (1.6-8.9); Platelet Count 225 K/mcL (140-400); Red Blood Count 3.32 M/mcL (3.82-4.97); Red Cell Distribution Width 18.2 % (11.5-14.5); Segmented Neutrophils % 55.3 %
[2017-03-04 05:27] LABS: BUN/Creatinine Ratio 27 (6-26); Blood Urea Nitrogen 22 mg/dL (7-20); Calcium 8.7 mg/dL (8.6-10.8); Carbon Dioxide 20 mEq/L (19-29); Chloride 109 mEq/L (98-109); Glucose 119 mg/dL (70-99); Osmolality,Calculated 292 (280-300); Potassium 3.8 mEq/L (3.5-4.5); Sodium 139 mEq/L (136-145); eGFR For African Americans > 60 (> 60); eGFR For Non-African Americans > 60 (> 60)
--- NOTE | 2017-03-04 08:26 | Internal Med Progress Note ---
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 use: unspecified ferry terminal supervisor insulin use status Qualified Code(s): E11.8 - Type 2 diabetes mellitus with unspecified complications (5) HTN (hypertension) Current Visit: No Status: Chronic Qualifiers: Hypertension type: essential hypertension Qualified Code(s): I10 - Essential (primary) hypertension (6) Spina bifida Current Visit: No Status: Chronic Qualifiers: Spinal region: unspecified Presence of hydrocephalus: unspecified hydrocephalus presence Qualified Code(s): Q05.9 - Spina bifida, unspecified (7) CAD (coronary artery disease) Current Visit: Yes Status: Acute Qualifiers: Coronary Disease-Associated Artery/Lesion type: [place] artery Associated angina: without angina Qualified Code(s): I25.10 - Atherosclerotic heart disease of [place] coronary artery without angina pectoris - Subjective Interval history: Pt seen and examined by me at bedside. Patient reports low back pain, diarrhea, dysuria. Patient was recently treated for an ecoli UTI/pyelonephritis at the end of december that was sensitive to zosyn. - Constitutional Vitals: Temp Pulse Resp BP Pulse Ox 98.1 F 69 16 101/65 93 03/04/17 07:12 03/04/17 07:12 03/04/17 07:12 03/04/17 07:12 03/04/17 07:12 General appearance: Present: A&O X 3, no acute distress Internal Medicine: Result - Labs CBC & Chem 7: 03/04/17 05:01 03/04/17 05:01 Labs: Short CBC 03/03/17 03/04/17 Range/Units 13:37 05:01 WBC 7.0 (4.3-11.1) K/mcL Hgb 9.1 L 8.3 L (11.5-15.4) g/dL Hct 29.2 L 27.4 L (35.3-44.9) % Plt Count 225 (140-400) K/mcL Neutrophils # 3.8 (1.6-8.9) K/mcL BMP 03/04/17 05:01 Sodium 139 Potassium 3.8 Chloride 109 Carbon Dioxide 20 BUN 22 H Creatinine 0.81 Glucose 119 H Calcium 8.7 - ABG Interpretation ABG results: PT/INR, D-dimer PT 11.7 Seconds (9.4-12.1) 03/02/17 15:05 - Impressions Impressions Retroperitoneum Ultrasound 03/03/17 08:30 IMPRESSION: 1. Persistent though decreased minimal bilateral hydronephrosis. 2. Irregular renal contours consistent with multifocal scarring seen on CT. No definite findings of underlying parenchymal disease. 3. 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 D/ / Moses Sanchez MD / Moses Sanchez MD Interpreting Provider: Moses Sanchez MD Consult Discharge Plan - Plan Referrals: Lorena Velazquez MD [Primary Care Provider] - 03/11/17 10:45 am
--- NOTE | 2017-03-04 09:06 | Nephrology Progress Note ---
Date of Encounter: 03/04/17 Time of Encounter: 08:50 - Assessment and Plan (1) Hyponatremia Current Visit: Yes Status: Acute Hyponatremia most likely in setting of GI losses with HCTZ contributing. Normal sodium levels prior. Sodium corrected 139. Renal fct normal. TSH, Cortisol normal. Recommend avoiding HCTZ in future. Will sign off. Call again if needed. Subjective Interval history: Eatnig breakfast. States feeling better. Objective - Vital Signs Vital signs: Vital Signs Temp Pulse Resp BP Pulse Ox 03/04/17 07:12 98.1 F 69 16 101/65 93 03/04/17 04:36 97.9 F 68 18 104/69 93 03/04/17 01:21 98.2 F 75 15 112/70 96 03/03/17 20:14 99.0 F 77 16 107/69 93 03/03/17 14:31 98.5 F 76 14 96/63 92 03/03/17 10:59 97.9 F 63 14 106/67 97 Intake and Output 03/03/17 03/04/17 03/04/17 23:59 07:59 15:59 Intake Total 100 / 100 100 / 100 Output Total 600 / 600 1025 / 1025 Balance -500 / -500 -925 / -925 Intake: IV Fluids 100 / 100 100 / 100 Zosyn 3.375 GM In 100 / 100 100 / 100 Dextrose 5% (Minibag+) 100 ML 100 ML @ 25 mls/hr IVPB Q8HR [facility] Rx#: [id number] Oral 0 / 0 0 / 0 Output: Catheter 600 / 600 1025 / 1025 Other: # Voids 1 Weight 57 kg Blood Glucose* 183 123 Patient Weight 03/04/17 23:59 Weight 57 kg - General Appearance General appearance: Present: well-nourished, appears started age EENT: Present: mucous membranes moist Neck: Present: no JVD Respiratory: Present: clear Cardiology: Present: no edema, regular rate, regular rhythm Gastrointestinal: Present: normoactive bowel sounds, no tenderness Integumentary: Present: warm and dry Neurologic: Present: alert and oriented x3 Psychiatric: Present: mood/affect appropriate, cooperative - Lab 03/04/17 05:01 03/04/17 05:01 Most recent lab results Calcium 8.7 mg/dL (8.6-10.8) 03/04/17 05:01 Consult Discharge Plan - Plan Referrals: Lorena Velazquez MD [Primary Care Provider] - 03/11/17 10:45 am
[2017-03-04] MEDS: Insulin LISPRO 300 UNITS/3 ML VIAL SQ SCH ×4 (09:18→21:13)
[2017-03-04] MEDS: ARIPiprazole 5 MG TABLET PO SCH (09:24)
[2017-03-04] MEDS: Piperacillin/Tazobactam 3.375 GM in D5% in Water (Mini-Bag+) 100 ML IVPB SCH ×2 (09:24→16:13)
[2017-03-04] MEDS: Aspirin Enteric Coated 81 MG Tablet PO SCH (09:24)
--- NOTE | 2017-03-04 13:39 | Discharge Summary ---
Date of Encounter: 03/04/17 Time of Encounter: 14:10 - Discharge Diagnosis (1) Pyelonephritis Priority: Primary Status: Acute (2) Hyponatremia Priority: Secondary Status: Acute (3) Anemia Priority: Secondary Status: Acute Qualifiers: Anemia type: unspecified type Qualified Code(s): D64.9 - Anemia, unspecified (4) Diabetes Priority: Secondary Status: Chronic Qualifiers: Diabetes mellitus type: type 2 Diabetes mellitus complication status: with unspecified complications Diabetes mellitus care home insulin use: unspecified care home insulin use status Qualified Code(s): E11.8 - Type 2 diabetes mellitus with unspecified complications (5) HTN (hypertension) Priority: Secondary Status: Chronic Qualifiers: Hypertension type: essential hypertension Qualified Code(s): I10 - Essential (primary) hypertension (6) Spina bifida Priority: Secondary Status: Chronic Qualifiers: Spinal region: unspecified Presence of hydrocephalus: unspecified hydrocephalus presence Qualified Code(s): Q05.9 - Spina bifida, unspecified (7) CAD (coronary artery disease) Priority: Secondary Status: Acute Qualifiers: Coronary Disease-Associated Artery/Lesion type: [place] artery Associated angina: without angina - Discharge Medications Prescriptions: Nitrofurantoin (BID) [Macrobid] 100 mg PO BID #10 capsule Home Medications: Aripiprazole [Abilify] 15 mg PO DAILY 05/14/15 [History] Aspirin Enteric Coated [Aspirin EC] 81 mg PO DAILY 05/14/15 [History] Metoclopramide [Reglan] 5 mg PO QID 05/14/15 [History] Verapamil [Isoptin] 80 mg PO DAILY 05/14/15 [History] Omeprazole [PriLOSEC] 20 mg PO BID #0 07/03/15 [History] ALPRAZolam [Xanax 0.5 MG Tablet] 0.5 mg PO HS 01/26/16 [History] Acetaminophen [Tylenol] 650 mg PO Q6HR PRN 01/26/16 [History] Bisacodyl [Dulcolax] 10 mg RC Q48H PRN 01/26/16 [History] Cholecalciferol (D-3) [Vitamin D] 1,000 unit PO DAILY 01/26/16 [History] Lactobacillus Acidophilus [Acidophilus Probiotic] 1 mg PO DAILY 01/26/16 [ History] Lidocaine HCl [Aspercreme] 1 appl TP TID PRN 01/26/16 [History] Multivitamin [Zoo Chews] 1 each PO DAILY 01/26/16 [History] Nystatin POWDER [Nystop] 1 appl TP BID 01/26/16 [History] Phenyleph/Pramoxin/Glycr/W.pet [Preparation H Cream] 1 appl RC QID PRN 01/26/16 [History] Polyethylene Glycol 3350 [MiraLAX] 17 gm PO DAILY PRN 01/26/16 [History] Pravastatin Sodium [Pravachol] 20 mg PO HS 01/26/16 [History] metFORMIN [Glucophage] 500 mg PO QPM 01/26/16 [History] Oxybutynin Chloride [Ditropan Xl] 10 mg PO BID 03/02/17 [History] Nitrofurantoin (BID) [Macrobid] 100 mg PO BID #10 capsule 03/04/17 [Rx] Allergies/Adverse Reactions: 3 Allergy/AdvReac Type Severity Reaction Status Date / Time alcohol Allergy Rash Verified 09/20/16 12:49 Amoxicillin [From Augmentin] Allergy Rash Verified 09/20/16 12:49 caffeine [From Cafergot] Allergy Rash Verified 09/20/16 12:49 cephalexin Allergy Rash Verified 09/20/16 15:54 clarithromycin [From Biaxin] Allergy Rash Verified 09/20/16 12:49 clavulanic acid Allergy Rash Verified 09/20/16 12:49 [From Augmentin] doxycycline Allergy Rash Verified 09/20/16 12:49 Ergotamine [From Cafergot] Allergy Rash Verified 09/20/16 12:49 nitrofurantoin Allergy Rash Verified 09/20/16 12:49 [From Macrodantin] Oxycodone [From Percocet] Allergy Rash Verified 09/20/16 12:49 Sulfa (Sulfonamide Allergy Rash Verified 09/20/16 12:49 Antibiotics) sulfabenzamide Allergy Rash Verified 09/20/16 12:49 Hydromorphone [From Dilaudid] AdvReac Headache Verified 09/20/16 12:49 morphine AdvReac Headache Verified 09/20/16 12:49 Procedures/tests Complete & Pending: Procedures Performed prior 72 hours Category Date Time Status US retroperitoneal comp [US] Stat Exams 08/31/17 08:30 Completed Date of admission: 03/02/17 19:05 Primary care physician: Lorena Velazquez Consults: 03/02/17 19:08 Consult to Nephrology [CONS] Routine Consulting Provider: [facility] Asha PALOMO Reason for Consult: Pyelonephritis Call Completed: No 03/02/17 21:12 Consult to Pastoral Services [CONS] Routine Comment: Discharging clinician: Chris Agustin Anticipated date of discharge: 03/04/17 - Patient Status Disposition: Home Health Service Condition: Fair Functional capacity at discharge: wheelchair bound Overall status at discharge: patient is progressing back to baseline - Discharge Instructions Instructions: Nitrofurantoin Combination (By mouth), Acute Pyelonephritis (GEN) , Urinary Tract Infection in Women, Business Transformation Manager (GEN) Follow Up With: Lorena Velazquez MD [Primary Care Provider] - 03/11/17 10:45 am Additional Instructions: Please follow up with your primary care provider within 1 week of discharge. Please resume all your home medications except for Hydrochlorothiazide (HCTZ). Please do not take you Hydrochlorothiazide (HCTZ) anymore. Please take your antibiotics as prescribed. We still do not have culture results yet, but based on your prior infection this abx should be sufficient, but please follow up closely with your Primary Care Provider in case the antibiotic needs to be changed. Please return to the hospital if you have any new or worsening symptoms. - Diet and Activity Activity: resume usual activities as tolerated Diet: advance to your usual diet Hospital course: Ms. Mitchell is a 52 year old female - Time Spent with Patient Total time spent providing and/or coordinating discharge services: - Constitutional Vitals: Temp Pulse Resp BP Pulse Ox 98.4 F 60 16 121/77 94 03/04/17 11:42 03/04/17 11:42 03/04/17 11:42 03/04/17 11:42 03/04/17 11:42 General appearance: Present: A&O X 3, no acute distress
--- NOTE | 2017-03-04 16:24 | Internal Med Progress Note ---
<[email or web address] fuller - Last Filed: 03/04/17 16:12> Date of Encounter: 03/04/17 Time of Encounter: 14:10 - Assessment and plan (1) Pyelonephritis Current Visit: Yes Status: Acute Assessment and plan: Hx of recurrent UTIs, patient straight caths at home 2/2 to paraplegia 2/2 spina bifida. pt last had UTI 02/[address] abd shows fat stranding and retroperitoneal adenopathy consistent with pyelonephritis. Nephrology on board. UA showed blood, leuk esterase, TNTC WBC, man squams, many bacteria. WBC down from 13.5 to 8.9 Prelim Urine Cx growing E. Coli Continue Zosyn sensitivities pending. Patient attempted to leave AMA, but was able to be convinced to stay because she would lose her home health if she left AMA. IR consulted for a powerglide for patient to received out patient IV abx. Have script for Ertapenem written. (2) Hyponatremia Current Visit: Yes Status: Acute Assessment and plan: resolved. likely secondary to GI loses. Patient Na 120 on admission. Patient was given NS 0.9% Na 137 the next morning. 139 now. Fluids were stopped. TSH, cortisol normal. continue to monitor (3) Anemia Current Visit: Yes Status: Acute Assessment and plan: Patient's Hgb 9.0 on admission. Hgbs 9.5, 9.0, 9.1, 8.3 subsequently last hgb prior to admission 09/20/16 was 12.6 micorcytic Likely Iron deficiency 2/2 to blood loss patient has hx of bleeding hemorrhoids. Patient hemodynamically stable. No signs of bleeding on exam. Iron 17, % Saturation 6, Transferrin 203 continue to monitor. Transfuse if less than 7 Qualifiers: Anemia type: unspecified type Qualified Code(s): D64.9 - Anemia, unspecified (4) Diabetes Current Visit: No Status: Chronic Assessment and plan: Chronic, Stable. 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 -Continue CCB -continue to hold HCTZ Qualifiers: Hypertension type: essential hypertension Qualified Code(s): I10 - Essential (primary) hypertension (6) Spina bifida Current Visit: No Status: Chronic Assessment and plan: Chronic, Stable Qualifiers: Spinal region: unspecified Presence of hydrocephalus: unspecified hydrocephalus presence Qualified Code(s): Q05.9 - Spina bifida, unspecified (7) CAD (coronary artery disease) Current Visit: Yes Status: Acute Assessment and plan: Chronic, Stable. -No current CP. -Continue home meds. Qualifiers: Coronary Disease-Associated Artery/Lesion type: [place] artery [place] vs. transplanted heart: [place] heart Associated angina: without angina Qualified Code(s): I25.10 - Atherosclerotic heart disease of [place] coronary artery without angina pectoris - Subjective Interval history: Patient reports feeling better and wanting to go home. Patient desired to sign out AMA and leave the hospital. Patient was able to be convinced to stay because she will lose her home health if she leaves AMA. Patient will need out patient IV antibiotics. Wrote Rx for IV Ertapenem. IR consulted to place line to go home on. Sensitivities should be back tomorrow morning. Check before discharging in case she needs different IV abx. Last ESBL UTI was sensitive to ertapenem. - Constitutional Vitals: Temp Pulse Resp BP Pulse Ox 98.4 F 60 16 121/77 94 03/04/17 11:42 03/04/17 11:42 03/04/17 11:42 03/04/17 11:42 03/04/17 11:42 General appearance: Present: A&O X 3, no acute distress - Head Head exam: Present: atraumatic, normocephalic - Eye Eye exam: Present: PERRL, conjuntiva pink, sclera anicteric Pupils: Present: PERRL - Neck Neck exam general surgery: Present: supple, trachea midline. Absent: lymphadenopathy - Respiratory Respiratory exam: Present: CTAB. Absent: accessory muscle use, rales, rhonchi, wheezes - Cardiovascular Cardiovascular exam: Present: RRR, +S1, +S2, systolic murmur. Absent: diastolic murmur, gallop, rubs - GI/Abdominal GI/Abdominal exam: Present: normal bowel sounds, soft, no peritoneal signs. Absent: distended, tenderness - Extremities Exam Extremities exam: Present: warm. Absent: calf tenderness, cyanotic, pedal edema - Neurological Exam Neurological exam: Present: alert, oriented X3. Absent: facial droop, speech deficit - Skin Skin exam: Present: dry, intact Internal Medicine: Result - Labs CBC & Chem 7: 03/04/17 05:01 03/04/17 05:01 Labs: Short CBC 03/04/17 Range/Units 05:01 WBC 7.0 (4.3-11.1) K/mcL Hgb 8.3 L (11.5-15.4) g/dL Hct 27.4 L (35.3-44.9) % Plt Count 225 (140-400) K/mcL Neutrophils # 3.8 (1.6-8.9) K/mcL BMP 03/04/17 05:01 Sodium 139 Potassium 3.8 Chloride 109 Carbon Dioxide 20 BUN 22 H Creatinine 0.81 Glucose 119 H Calcium 8.7 - ABG Interpretation ABG results: PT/INR, D-dimer PT 11.7 Seconds (9.4-12.1) 03/02/17 15:05 Consult Discharge Plan - Plan Instructions: Nitrofurantoin Combination (By mouth), Acute Pyelonephritis (GEN) , Urinary Tract Infection in Women, Check Inspector (GEN) Additional Instructions: Please follow up with your primary care provider within 1 week of discharge. Please resume all your home medications except for Hydrochlorothiazide (HCTZ). Please do not take you Hydrochlorothiazide (HCTZ) anymore. Please take your antibiotics as prescribed. We still do not have culture results yet, but based on your prior infection this abx should be sufficient, but please follow up closely with your Primary Care Provider in case the antibiotic needs to be changed. Please return to the hospital if you have any new or worsening symptoms. Referrals: Lorena Velazquez MD [Primary Care Provider] - 03/11/17 10:45 am Prescriptions: Ertapenem Sodium [Invanz] 1 gm IV DAILY #10 vial[place] Nitrofurantoin (BID) [Macrobid] 100 mg PO BID #10 capsule <Meek Coronado - Last Filed: 03/04/17 17:45> Date of Encounter: 03/04/17 - Assessment and plan (1) Acute pyelonephritis Current Visit: Yes Status: Acute Assessment and plan: Due to E coli. Final cx pending. (2) CAD (coronary artery disease) Current Visit: Yes Status: Acute Qualifiers: Coronary Disease-Associated Artery/Lesion type: [place] artery [place] vs. transplanted heart: [place] heart Associated angina: without angina Qualified Code(s): I25.10 - Atherosclerotic heart disease of [place] coronary artery without angina pectoris (3) Hyponatremia Current Visit: Yes Status: Acute (4) Diabetes Current Visit: No Status: Chronic Qualifiers: Diabetes mellitus type: type 2 Diabetes mellitus complication status: with unspecified complications Diabetes mellitus retirement insulin use: unspecified retirement insulin use status Qualified Code(s): E11.8 - Type 2 diabetes mellitus with unspecified complications (5) HTN (hypertension) Current Visit: No Status: Chronic Qualifiers: Hypertension type: essential hypertension Qualified Code(s): I10 - Essential (primary) hypertension (6) Spina bifida Current Visit: No Status: Chronic Qualifiers: Spinal region: unspecified Presence of hydrocephalus: without hydrocephalus Qualified Code(s): Q05.9 - Spina bifida, unspecified (7) Anemia Current Visit: Yes Status: Acute Qualifiers: Anemia type: iron deficiency Iron deficiency anemia type: unspecified iron deficiency Qualified Code(s): D50.9 - Iron deficiency anemia, unspecified - Constitutional Vitals: Temp Pulse Resp BP Pulse Ox 97.6 F 62 14 130/80 94 03/04/17 16:35 03/04/17 16:35 03/04/17 16:35 03/04/17 16:35 03/04/17 16:35 Internal Medicine: Result - Labs CBC & Chem 7: 03/04/17 05:01 03/04/17 05:01 Labs: Short CBC 03/04/17 Range/Units 05:01 WBC 7.0 (4.3-11.1) K/mcL Hgb 8.3 L (11.5-15.4) g/dL Hct 27.4 L (35.3-44.9) % Plt Count 225 (140-400) K/mcL Neutrophils # 3.8 (1.6-8.9) K/mcL BMP 03/04/17 05:01 Sodium 139 Potassium 3.8 Chloride 109 Carbon Dioxide 20 BUN 22 H Creatinine 0.81 Glucose 119 H Calcium 8.7 - ABG Interpretation ABG results: PT/INR, D-dimer PT 11.7 Seconds (9.4-12.1) 03/02/17 15:05 - Attending Attestation I examined this patient and my medical decision-making was reviewed with the Resident Physician on 03/04/17. I agree with the documented findings, disposition and treatment plan as described except to the extent set forth below. Ms. Mitchell is currently admitted for complicated UTI. She remains moderate to high risk due to potential for worsening infectious status. Ms. Mitchell wants to leave and was going to leave AMA. Her home care was going to stop seeing her if she did so she has stayed. Urine has E.coli - final ID and Sensitivity pending. Overall has improved. No fever or chills. No GI issues. Exam Alert. Comfortable Heart reg No wheeze Abd soft I/P 1. E. coli UTI - awaiting final cx for abx. EPIV placed today in case needs IV abx 2. Spinal bifida Further diagnoses and plan as above.
[2017-03-04] MEDS ORDERED: Temazepam 15 MG CAPSULE PO ONE (23:31)
[2017-03-05] MEDS: Piperacillin/Tazobactam 3.375 GM in D5% in Water (Mini-Bag+) 100 ML IVPB SCH ×4 (00:02→23:22)
[2017-03-05 04:30] LABS: BUN/Creatinine Ratio 38 (6-26); Blood Urea Nitrogen 28 mg/dL (7-20); Calcium 9.1 mg/dL (8.6-10.8); Carbon Dioxide 25 mEq/L (19-29); Chloride 108 mEq/L (98-109); Glucose 138 mg/dL (70-99); Osmolality,Calculated 302 (280-300); Potassium 3.7 mEq/L (3.5-4.5); Sodium 142 mEq/L (136-145); eGFR For African Americans > 60 (> 60); eGFR For Non-African Americans > 60 (> 60)
[2017-03-05 04:41] LABS: Basophils % 0.6 %; Eosinophils # 0.2 K/mcL (0.0-0.6); Eosinophils % 2.8 %; Hematocrit 29.8 % (35.3-44.9); Hemoglobin 9.1 g/dL (11.5-15.4); Immature Granulocytes % 0.8 % (0-4); Lymphocytes # 2.2 K/mcL (0.6-4.6); Lymphocytes % 31.4 %; Mean Corpuscular HGB Conc 30.5 g/dL (31.6-35.5); Mean Corpuscular Hemoglobin 25.3 pg (28.0-33.3); Mean Corpuscular Volume 82.8 fL (83.0-100.0); Mean Platelet Volume 10.7 fL (9.4-12.4); Monocytes # 0.5 K/mcL (0.0-1.3); Monocytes % 7.4 %; Nucleated Red Blood Cells 0.4 /100 WBC (0); Platelet Count 310 K/mcL (140-400); Red Cell Distribution Width 17.9 % (11.5-14.5)
--- NOTE | 2017-03-05 07:54 | Discharge Summary ---
Date of Encounter: 03/05/17 - Discharge Diagnosis (1) Pyelonephritis Priority: Primary Status: Acute (2) Hyponatremia Priority: Secondary Status: Acute (3) Anemia Priority: Secondary Status: Acute Qualifiers: Anemia type: iron deficiency Iron deficiency anemia type: unspecified iron deficiency Qualified Code(s): D50.9 - Iron deficiency anemia, unspecified (4) Diabetes Priority: Secondary Status: Chronic Qualifiers: Diabetes mellitus type: type 2 Diabetes mellitus complication status: with unspecified complications Diabetes mellitus half-way insulin use: unspecified lobsterman insulin use status Qualified Code(s): E11.8 - Type 2 diabetes mellitus with unspecified complications (5) HTN (hypertension) Priority: Secondary Status: Chronic Qualifiers: Hypertension type: essential hypertension Qualified Code(s): I10 - Essential (primary) hypertension (6) Spina bifida Priority: Secondary Status: Chronic Qualifiers: Spinal region: unspecified Presence of hydrocephalus: unspecified hydrocephalus presence Qualified Code(s): Q05.9 - Spina bifida, unspecified (7) CAD (coronary artery disease) Priority: Secondary Status: Chronic Qualifiers: Coronary Disease-Associated Artery/Lesion type: [place] artery [place] vs. transplanted heart: [place] heart Associated angina: without angina Qualified Code(s): I25.10 - Atherosclerotic heart disease of [place] coronary artery without angina pectoris - Discharge Medications Prescriptions: Ertapenem Sodium [Invanz] 1 gm IV DAILY #10 vial.port Nitrofurantoin (BID) [Macrobid] 100 mg PO BID #10 capsule Home Medications: Aripiprazole [Abilify] 15 mg PO DAILY 05/14/15 [History] Aspirin Enteric Coated [Aspirin EC] 81 mg PO DAILY 05/14/15 [History] Metoclopramide [Reglan] 5 mg PO QID 05/14/15 [History] Verapamil [Isoptin] 80 mg PO DAILY 05/14/15 [History] Omeprazole [PriLOSEC] 20 mg PO BID #0 07/03/15 [History] ALPRAZolam [Xanax 0.5 MG Tablet] 0.5 mg PO HS 01/26/16 [History] Acetaminophen [Tylenol] 650 mg PO Q6HR PRN 01/26/16 [History] Bisacodyl [Dulcolax] 10 mg RC Q48H PRN 01/26/16 [History] Cholecalciferol (D-3) [Vitamin D] 1,000 unit PO DAILY 01/26/16 [History] Lactobacillus Acidophilus [Acidophilus Probiotic] 1 mg PO DAILY 01/26/16 [ History] Lidocaine HCl [Aspercreme] 1 appl TP TID PRN 01/26/16 [History] Multivitamin [Zoo Chews] 1 each PO DAILY 01/26/16 [History] Nystatin POWDER [Nystop] 1 appl TP BID 01/26/16 [History] Phenyleph/Pramoxin/Glycr/W.pet [Preparation H Cream] 1 appl RC QID PRN 01/26/16 [History] Polyethylene Glycol 3350 [MiraLAX] 17 gm PO DAILY PRN 01/26/16 [History] Pravastatin Sodium [Pravachol] 20 mg PO HS 01/26/16 [History] metFORMIN [Glucophage] 500 mg PO QPM 01/26/16 [History] Oxybutynin Chloride [Ditropan Xl] 10 mg PO BID 03/02/17 [History] Ertapenem Sodium [Invanz] 1 gm IV DAILY #10 vial.port 03/04/17 [Rx] Nitrofurantoin (BID) [Macrobid] 100 mg PO BID #10 capsule 03/04/17 [Rx] Allergies/Adverse Reactions: 3 Allergy/AdvReac Type Severity Reaction Status Date / Time alcohol Allergy Rash Verified 09/20/16 12:49 Amoxicillin [From Augmentin] Allergy Rash Verified 09/20/16 12:49 caffeine [From Cafergot] Allergy Rash Verified 09/20/16 12:49 cephalexin Allergy Rash Verified 09/20/16 15:54 clarithromycin [From Biaxin] Allergy Rash Verified 09/20/16 12:49 clavulanic acid Allergy Rash Verified 09/20/16 12:49 [From Augmentin] doxycycline Allergy Rash Verified 09/20/16 12:49 Ergotamine [From Cafergot] Allergy Rash Verified 09/20/16 12:49 nitrofurantoin Allergy Rash Verified 09/20/16 12:49 [From Macrodantin] Oxycodone [From Percocet] Allergy Rash Verified 09/20/16 12:49 Sulfa (Sulfonamide Allergy Rash Verified 09/20/16 12:49 Antibiotics) sulfabenzamide Allergy Rash Verified 09/20/16 12:49 Hydromorphone [From Dilaudid] AdvReac Headache Verified 09/20/16 12:49 morphine AdvReac Headache Verified 09/20/16 12:49 Procedures/tests Complete & Pending: Procedures Performed prior 72 hours Category Date Time Status US retroperitoneal comp [US] Stat Exams 03/03/17 08:[address] abd pelvis: FINDINGS: Lower Chest: Trace right pleural effusion. Left basilar subsegmental atelectasis or focal scarring. Organs: Prior cholecystectomy. Liver, spleen, pancreas, and adrenal glands are unremarkable. Bilateral hydronephrosis and hydroureter not substantially changed. Ureteral dilation extends to the ileal conduit. No definite urolithiasis identified. Asymmetric right perinephric fat stranding, increased from previous exam. Symmetric renal parenchymal enhancement. Absent urinary bladder. GI/Bowel: The colon demonstrates no acute abnormality. Unchanged fluid-filled, dilated loops of small bowel in the pelvis and right lower quadrant. The distal esophagus and stomach are within normal limits. Proximal small bowel is normal in caliber. Pelvis: No evidence of pelvic free fluid or adenopathy. Peritoneum/Retroperitoneum: Mildly enlarged retroperitoneal lymph nodes appear increased in size. Ventriculopleural shunt catheter terminates in the right posterior costophrenic angle. Abandoned BAR HOSTESS shunt catheter in the anterior abdomen. No ascites or pneumoperitoneum. 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 Chronic bilateral hip deformity. CT/CT abd pelvis w iv no oral IMPRESSION: Right perinephric fat stranding and retroperitoneal adenopathy suggest ascending urinary tract infection. Degree of hydronephrosis and hydroureter extending to the ileal conduit is not substantially changed from the previous exam. Also, multiple fluid-filled dilated loops of bowel within the pelvis and right lower quadrant are unchanged. Retroperitoneal U/S: FINDINGS: KIDNEYS: Renal lengths in longitudinal axis: 9.4 cm right, 9.6 cm left Abnormal, lobular contours corresponding with areas of parenchymal thinning and scarring as on CT. Normal size and parenchymal echogenicity. Minimal bilateral hydronephrosis. No shadowing calculi nor perinephric fluid. URINARY BLADDER: Similar appearance of a neobladder, again distended with urine as on CT. Kong catheter present. US/US retroperitoneal comp IMPRESSION: 1. Persistent though decreased minimal bilateral hydronephrosis. 2. Irregular renal contours consistent with multifocal scarring seen on CT. No definite findings of underlying parenchymal disease. 3. 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 Date of admission: 03/02/17 19:05 Primary care physician: Lorena Velazquez Consults: 03/02/17 19:08 Consult to Nephrology [CONS] Routine Consulting Provider: [facility] Spctangelat DEWEY Reason for Consult: Pyelonephritis Call Completed: No 03/02/17 21:12 Consult to Pastoral Services [CONS] Routine Comment: 03/04/17 15:08 Consult to Invasive Line Access Team [CONS] Routine Reason for Consult: Limited access with KELSI Line Type: EPIV PICC line indications: director long term care Med/Antibiotic Time Notified: 15:09 Call Completed: Yes Discharging clinician: Chris Agustin Anticipated date of discharge: 03/05/17 - Patient Status Disposition: Home Health Service Condition: Fair Functional capacity at discharge: wheelchair bound Overall status at discharge: patient is progressing back to baseline - Discharge Instructions Instructions: Nitrofurantoin Combination (By mouth), Acute Pyelonephritis (GEN) , Urinary Tract Infection in Women, Do All Operator (GEN) Follow Up With: Lorena Velazquez MD [Primary Care Provider] - 03/11/17 10:45 am Additional Instructions: Please follow up with your primary care provider within 1 week of discharge. Please resume all your home medications except for Hydrochlorothiazide (HCTZ). Please do not take you Hydrochlorothiazide (HCTZ) anymore. Please take your antibiotics as prescribed. We still do not have culture results yet, but based on your prior infection this abx should be sufficient, but please follow up closely with your Primary Care Provider in case the antibiotic needs to be changed. Please return to the hospital if you have any new or worsening symptoms. - Diet and Activity Activity: resume usual activities as tolerated Diet: diabetic diet Interval History: Paeint seen and examined by me at bedside. Patient denies any current medical complaint. Patient impatient to get home. Hospital course: Ms. Mitchell is a 52 year old female with PMH spina bifida, CAD, hypertension, diabetes, recurrent UTIs, GERD, hyperlipidemia, hypertension, myocardial infarction, anxiety, and depression who reports to the hospital c/o of fevers, chills, and low back pain. She was worked up and found to have pyelonephritis. Patient has had multiple ESBL UTIs in the past. Patient was started on Zosyn. Patient's symptoms improved on medications and patient was discharged home on __ _. - Time Spent with Patient Total time spent providing and/or coordinating discharge services: 60 minutes - Constitutional Vitals: Temp Pulse Resp BP Pulse Ox 97.9 F 65 14 149/78 93 03/05/17 02:58 03/05/17 02:58 03/05/17 02:58 03/05/17 02:58 03/05/17 02:58 General appearance: Present: A&O X 3, no acute distress - Head Head exam: Present: atraumatic, normocephalic - Eye Eye exam: Present: conjuntiva pink, sclera anicteric - Neck Neck exam general surgery: Present: supple, trachea midline - Respiratory Respiratory exam: Present: CTAB. Absent: accessory muscle use, rales, rhonchi, wheezes - Cardiovascular Cardiovascular exam: Present: RRR, +S1, +S2, systolic murmur. Absent: diastolic murmur, gallop, rubs - GI/Abdominal GI/Abdominal exam: Present: normal bowel sounds, soft, no peritoneal signs. Absent: distended, tenderness - Extremities Exam Extremities exam: Present: warm. Absent: calf tenderness, cyanotic, pedal edema - Neurological Exam Neurological exam: Present: alert, oriented X3. Absent: facial droop, speech deficit - Skin Skin exam: Present: dry, intact, warm
[2017-03-05] MEDS: Insulin LISPRO 300 UNITS/3 ML VIAL SQ SCH ×4 (08:40→21:32)
[2017-03-05] MEDS: ARIPiprazole 5 MG TABLET PO SCH (08:45)
[2017-03-05] MEDS: Aspirin Enteric Coated 81 MG Tablet PO SCH (08:45)
[2017-03-05] MEDS: Acetaminophen 325 MG TABLET PO PRN ×2 (08:51→15:24)
--- NOTE | 2017-03-05 09:09 | Physician Discharge Referral ---
Home Health/Hosp Referral Info Transfer to: Home Health Provider in Charge Post Discharge: PCP - Diagnosis (1) Pyelonephritis Priority: Primary Status: Acute (2) Hyponatremia Priority: Secondary Status: Acute (3) Anemia Priority: Secondary Status: Acute (4) Diabetes Priority: Secondary Status: Chronic (5) HTN (hypertension) Priority: Secondary Status: Chronic (6) Spina bifida Priority: Secondary Status: Chronic (7) CAD (coronary artery disease) Priority: Secondary Status: Chronic - Respiratory Orders Smoking Cessation: Smoking cessation has been advised. For more information, call the [place] Tobacco Quit Line at 2-647-OYFK-NOW. - Diet/Nutrition Diet/Nutrition Orders: No Concentrated Sweets - Services Needed Following services are medically necessary services: Nursing, Home Health Aide, Home Infusion - Transfer Medications Prescriptions: Ertapenem Sodium [Invanz] 1 gm IV DAILY #10 vial.port Home Medications: Aripiprazole [Abilify] 15 mg PO DAILY 05/14/15 [History] Aspirin Enteric Coated [Aspirin EC] 81 mg PO DAILY 05/14/15 [History] Metoclopramide [Reglan] 5 mg PO QID 05/14/15 [History] Verapamil [Isoptin] 80 mg PO DAILY 05/14/15 [History] Omeprazole [PriLOSEC] 20 mg PO BID #0 07/03/15 [History] ALPRAZolam [Xanax 0.5 MG Tablet] 0.5 mg PO HS 01/26/16 [History] Acetaminophen [Tylenol] 650 mg PO Q6HR PRN 01/26/16 [History] Bisacodyl [Dulcolax] 10 mg RC Q48H PRN 01/26/16 [History] Cholecalciferol (D-3) [Vitamin D] 1,000 unit PO DAILY 01/26/16 [History] Lactobacillus Acidophilus [Acidophilus Probiotic] 1 mg PO DAILY 01/26/16 [ History] Lidocaine HCl [Aspercreme] 1 appl TP TID PRN 01/26/16 [History] Multivitamin [Zoo Chews] 1 each PO DAILY 01/26/16 [History] Nystatin POWDER [Nystop] 1 appl TP BID 01/26/16 [History] Phenyleph/Pramoxin/Glycr/W.pet [Preparation H Cream] 1 appl RC QID PRN 01/26/16 [History] Polyethylene Glycol 3350 [MiraLAX] 17 gm PO DAILY PRN 01/26/16 [History] Pravastatin Sodium [Pravachol] 20 mg PO HS 01/26/16 [History] metFORMIN [Glucophage] 500 mg PO QPM 01/26/16 [History] Oxybutynin Chloride [Ditropan Xl] 10 mg PO BID 03/02/17 [History] Ertapenem Sodium [Invanz] 1 gm IV DAILY #10 vial.port 03/04/17 [Rx] Allergies/Adverse Reactions: 3 Allergy/AdvReac Type Severity Reaction Status Date / Time alcohol Allergy Rash Verified 09/20/16 12:49 Amoxicillin [From Augmentin] Allergy Rash Verified 09/20/16 12:49 caffeine [From Cafergot] Allergy Rash Verified 09/20/16 12:49 cephalexin Allergy Rash Verified 09/20/16 15:54 clarithromycin [From Biaxin] Allergy Rash Verified 09/20/16 12:49 clavulanic acid Allergy Rash Verified 09/20/16 12:49 [From Augmentin] doxycycline Allergy Rash Verified 09/20/16 12:49 Ergotamine [From Cafergot] Allergy Rash Verified 09/20/16 12:49 nitrofurantoin Allergy Rash Verified 09/20/16 12:49 [From Macrodantin] Oxycodone [From Percocet] Allergy Rash Verified 09/20/16 12:49 Sulfa (Sulfonamide Allergy Rash Verified 09/20/16 12:49 Antibiotics) sulfabenzamide Allergy Rash Verified 09/20/16 12:49 Hydromorphone [From Dilaudid] AdvReac Headache Verified 09/20/16 12:49 morphine AdvReac Headache Verified 09/20/16 12:49 Certification: Further, I certify that my clinical findings support that this patient is homebound (i.e. absences from home require considerable and taxing effort and are for medical reasons or holiness services or infrequently or short duration when for other reasons) because: Homebound Reason: Patient requires assistance of a person or device to safely leave home, Leaving home requires considerable and taxing effort due to condition Attestation: My signature below is to certify that this patient is under my care and that I, or nurse practitioner, or a physician's professional nursing assistant working with me, has a face-to -face encounter with this patient.
--- NOTE | 2017-03-05 10:20 | Internal Med Progress Note ---
<InajeronimoChris fuller - Last Filed: 03/05/17 10:17> Date of Encounter: 03/05/17 Time of Encounter: 10:17 - Assessment and plan (1) Pyelonephritis Current Visit: Yes Status: Acute Assessment and plan: Hx of recurrent UTIs, patient straight caths at home 2/2 to paraplegia 2/2 spina bifida. pt last had UTI 02/[address] abd shows fat stranding and retroperitoneal adenopathy consistent with pyelonephritis. Nephrology on board. UA showed blood, leuk esterase, TNTC WBC, man squams, many bacteria. WBC down from 13.5 to 87.1 todat Prelim Urine Cx growing E. Coli Continue Zosyn sensitivities pending. Patient attempted to leave AMA, but was able to be convinced to stay because she would lose her home health if she left AMA. IR consulted for a powerglide for patient to received out patient IV abx. Have script for Ertapenem written. Will narrow down if sensitivities result prior to discharge. (2) Hyponatremia Current Visit: Yes Status: Acute Assessment and plan: resolved. likely secondary to GI loses. Patient Na 120 on admission. Patient was given NS 0.9% Na 137 the next morning. 142 now. Fluids were stopped. TSH, cortisol normal. continue to monitor (3) Anemia Current Visit: Yes Status: Acute Assessment and plan: Patient's Hgb 9.0 on admission. Hgbs 9.5, 9.0, 9.1, 8.3, 9.1 subsequently last hgb prior to admission 09/20/16 was 12.6 micorcytic Likely Iron deficiency 2/2 to blood loss patient has hx of bleeding hemorrhoids. Patient hemodynamically stable. No signs of bleeding on exam. Iron 17, % Saturation 6, Transferrin 203 continue to monitor. Transfuse if less than 7 Qualifiers: Anemia type: iron deficiency Iron deficiency anemia type: unspecified iron deficiency Qualified Code(s): D50.9 - Iron deficiency anemia, unspecified (4) Diabetes Current Visit: No Status: Chronic Assessment and plan: Chronic, Stable. -continue SSI, -Diabetic diet, -acuchecks Qualifiers: Diabetes mellitus type: type 2 Diabetes mellitus complication status: with unspecified complications Diabetes mellitus jail insulin use: unspecified intermediate card tender insulin use status Qualified Code(s): E11.8 - Type 2 diabetes mellitus with unspecified complications (5) HTN (hypertension) Current Visit: No Status: Chronic Assessment and plan: Chronic, stable. Continue CCB continue to hold HCTZ Qualifiers: Hypertension type: essential hypertension Qualified Code(s): I10 - Essential (primary) hypertension (6) Spina bifida Current Visit: No Status: Chronic Assessment and plan: -Chronic, Stable Qualifiers: Spinal region: unspecified Presence of hydrocephalus: unspecified hydrocephalus presence Qualified Code(s): Q05.9 - Spina bifida, unspecified (7) CAD (coronary artery disease) Current Visit: Yes Status: Chronic Assessment and plan: Chronic, Stable. No current CP. Continue home meds. Qualifiers: Coronary Disease-Associated Artery/Lesion type: [place] artery [place] vs. transplanted heart: [place] Associated angina: without angina Qualified Code(s): I25.10 - Atherosclerotic heart disease of [place] coronary artery without angina pectoris - Subjective Interval history: Patient no longer demanding to leave. Patient complaining of diarrhea. Patient denies abd pain, blood in stool, vomiting. Sensitivities should be back this evening or tomorrow morning. - Constitutional Vitals: Temp Pulse Resp BP Pulse Ox 98.4 F 67 15 141/84 96 03/05/17 08:05 03/05/17 08:05 03/05/17 08:05 03/05/17 08:05 03/05/17 08:05 General appearance: Present: A&O X 3, no acute distress - Head Head exam: Present: atraumatic, normocephalic - Eye Eye exam: Present: conjuntiva pink, sclera anicteric - Neck Neck exam general surgery: Present: supple, trachea midline - Respiratory Respiratory exam: Present: CTAB. Absent: accessory muscle use, rales, rhonchi, wheezes - Cardiovascular Cardiovascular exam: Present: RRR, +S1, +S2, systolic murmur. Absent: diastolic murmur, gallop, rubs - GI/Abdominal GI/Abdominal exam: Present: normal bowel sounds, soft, no peritoneal signs. Absent: distended, tenderness - Extremities Exam Extremities exam: Present: warm. Absent: calf tenderness, cyanotic, pedal edema - Neurological Exam Neurological exam: Present: alert, oriented X3. Absent: facial droop, speech deficit - Skin Skin exam: Present: dry, intact, warm Internal Medicine: Result - Labs CBC & Chem 7: 03/05/17 04:02 03/05/17 04:02 Labs: Short CBC 03/05/17 Range/Units 04:02 WBC 7.1 (4.3-11.1) K/mcL Hgb 9.1 L (11.5-15.4) g/dL Hct 29.8 L (35.3-44.9) % Plt Count 310 (140-400) K/mcL Neutrophils # 4.0 (1.6-8.9) K/mcL BMP 03/05/17 04:02 Sodium 142 Potassium 3.7 Chloride 108 Carbon Dioxide 25 BUN 28 H Creatinine 0.73 Glucose 138 H Calcium 9.1 - ABG Interpretation ABG results: PT/INR, D-dimer PT 11.7 Seconds (9.4-12.1) 03/02/17 15:05 Consult Discharge Plan - Plan Instructions: Nitrofurantoin Combination (By mouth), Acute Pyelonephritis (GEN) , Urinary Tract Infection in Women, Pediatric Genetic Counselor (GEN) Additional Instructions: Please follow up with your primary care provider within 1 week of discharge. Please resume all your home medications except for Hydrochlorothiazide (HCTZ). Please do not take you Hydrochlorothiazide (HCTZ) anymore. Please take your antibiotics as prescribed. We still do not have culture results yet, but based on your prior infection this abx should be sufficient, but please follow up closely with your Primary Care Provider in case the antibiotic needs to be changed. Please return to the hospital if you have any new or worsening symptoms. Referrals: Lorena Velazquez MD [Primary Care Provider] - 03/11/17 10:45 am Prescriptions: Ertapenem Sodium [Invanz] 1 gm IV DAILY #10 vial.port <Meek Coronado - Last Filed: 03/05/17 19:32> Date of Encounter: 03/05/17 - Assessment and plan (1) Acute pyelonephritis Current Visit: Yes Status: Acute (2) CAD (coronary artery disease) Current Visit: Yes Status: Chronic Qualifiers: Coronary Disease-Associated Artery/Lesion type: [place] artery [place] vs. transplanted heart: [place] Associated angina: without angina Qualified Code(s): I25.10 - Atherosclerotic heart disease of [place] coronary artery without angina pectoris (3) Hyponatremia Current Visit: Yes Status: Acute (4) Diabetes Current Visit: No Status: Chronic Qualifiers: Diabetes mellitus type: type 2 Diabetes mellitus complication status: with hyperglycemia Diabetes mellitus jail insulin use: without jail use Qualified Code(s): E11.65 - Type 2 diabetes mellitus with hyperglycemia (5) HTN (hypertension) Current Visit: No Status: Chronic Qualifiers: Hypertension type: essential hypertension Qualified Code(s): I10 - Essential (primary) hypertension (6) Spina bifida Current Visit: No Status: Chronic Qualifiers: Spinal region: lumbosacral Presence of hydrocephalus: without hydrocephalus Qualified Code(s): Q05.7 - Lumbar spina bifida without hydrocephalus (7) Anemia Current Visit: Yes Status: Acute Qualifiers: Anemia type: iron deficiency Iron deficiency anemia type: other iron deficiency Qualified Code(s): D50.8 - Other iron deficiency anemias - Constitutional Vitals: Temp Pulse Resp BP Pulse Ox 98.2 F 58 14 133/84 95 03/05/17 18:45 03/05/17 18:45 03/05/17 18:45 03/05/17 18:45 03/05/17 18:45 Internal Medicine: Result - Labs CBC & Chem 7: 03/05/17 04:02 03/05/17 04:02 Labs: Short CBC 03/05/17 Range/Units 04:02 WBC 7.1 (4.3-11.1) K/mcL Hgb 9.1 L (11.5-15.4) g/dL Hct 29.8 L (35.3-44.9) % Plt Count 310 (140-400) K/mcL Neutrophils # 4.0 (1.6-8.9) K/mcL BMP 03/05/17 04:02 Sodium 142 Potassium 3.7 Chloride 108 Carbon Dioxide 25 BUN 28 H Creatinine 0.73 Glucose 138 H Calcium 9.1 - ABG Interpretation ABG results: PT/INR, D-dimer PT 11.7 Seconds (9.4-12.1) 03/02/17 15:05 - Attending Attestation I examined this patient and my medical decision-making was reviewed with the Resident Physician on 03/05/17. I agree with the documented findings, disposition and treatment plan as described except to the extent set forth below. Ms. Mitchell is currently admitted for acute pyelo and diarrhea. She remains moderate to high risk due to potential for worsening infectious issues. Ms Mitchell is having some diarrhea. No fever or chills. No CP or SOB. Final culture is pending. Having some neck discomfort and wants cream. Exam Alert Comfortable Heart reg No wheeze Abd soft I/P 1. Pyelo 2. Diarrhea Further diagnoses and plan as above.
[2017-03-05] MEDS: Methyl Salicylate/Menthol 28 GM TUBE TP PRN (17:03)
[2017-03-06 06:22] LABS: BUN/Creatinine Ratio 31 (6-26); Blood Urea Nitrogen 26 mg/dL (7-20); Calcium 10.5 mg/dL (8.6-10.8); Carbon Dioxide 24 mEq/L (19-29); Chloride 106 mEq/L (98-109); Glucose 103 mg/dL (70-99); Osmolality,Calculated 303 (280-300); Potassium 3.4 mEq/L (3.5-4.5); Sodium 144 mEq/L (136-145); eGFR For African Americans > 60 (> 60); eGFR For Non-African Americans > 60 (> 60)
[2017-03-06 06:30] LABS: Hematocrit 35.4 % (35.3-44.9); Mean Corpuscular HGB Conc 30.8 g/dL (31.6-35.5); Mean Corpuscular Hemoglobin 25.5 pg (28.0-33.3); Mean Corpuscular Volume 82.7 fL (83.0-100.0); Mean Platelet Volume 10.4 fL (9.4-12.4); Platelet Count 357 K/mcL (140-400); Red Blood Count 4.28 M/mcL (3.82-4.97); Red Cell Distribution Width 18.5 % (11.5-14.5)
[2017-03-06 06:32] LABS: Hemoglobin 10.9 g/dL (11.5-15.4)
[2017-03-06] MEDS: Insulin LISPRO 300 UNITS/3 ML VIAL SQ SCH ×4 (07:31→21:08)
[2017-03-06] MEDS: ARIPiprazole 5 MG TABLET PO SCH (08:01)
[2017-03-06] MEDS: Aspirin Enteric Coated 81 MG Tablet PO SCH (08:01)
[2017-03-06] MEDS: Acetaminophen 325 MG TABLET PO PRN ×3 (08:01→22:13)
[2017-03-06] MEDS: Ertapenem 1,000 MG in 0.9 % Sodium Chloride Mini Bag 100 ML IVPB SCH (08:02)
--- NOTE | 2017-03-06 08:09 | Internal Med Progress Note ---
<Chris Agustin - Last Filed: 03/06/17 11:41> Date of Encounter: 03/06/17 Time of Encounter: 10:34 - Assessment and plan (1) Pyelonephritis Current Visit: Yes Status: Acute Assessment and plan: Hx of recurrent UTIs, patient straight caths at home 2/2 to paraplegia 2/2 spina bifida. pt last had UTI 02/[address] abd shows fat stranding and retroperitoneal adenopathy consistent with pyelonephritis. Nephrology on board. UA showed blood, leuk esterase, TNTC WBC, man squams, many bacteria. WBC down from 13.5 to 7.2 today Urine Cx grew ESBL E. Coli Changed abx form Zosyn to ertapenem based on sensitivities Patient will need to continue ertapenem out patient, but will not be able to be set up until tuesday due to holiday. (2) Hyponatremia Current Visit: Yes Status: Acute Assessment and plan: resolved. likely secondary to GI loses. Patient Na 120 on admission. Patient was given NS 0.9% Na 137 the next morning. 144 now. Fluids were stopped. TSH, cortisol normal. continue to monitor (3) Anemia Current Visit: Yes Status: Acute Assessment and plan: Patient's Hgb 9.0 on admission. Hgbs 9.5, 9.0, 9.1, 8.3, 9.1, 10.9 subsequently last hgb prior to admission 09/20/16 was 12.6 micorcytic Likely Iron deficiency 2/2 to blood loss patient has hx of bleeding hemorrhoids. Patient hemodynamically stable. No signs of bleeding on exam. Iron 17, % Saturation 6, Transferrin 203 continue to monitor. Transfuse if less than 7 Qualifiers: Anemia type: iron deficiency Iron deficiency anemia type: other iron deficiency Qualified Code(s): D50.8 - Other iron deficiency anemias (4) Diabetes Current Visit: No Status: Chronic Assessment and plan: Chronic, Stable. continue SSI, Diabetic diet, acuchecks Qualifiers: Diabetes mellitus type: type 2 Diabetes mellitus complication status: with hyperglycemia Diabetes mellitus long-term insulin use: without long-term use Qualified Code(s): E11.65 - Type 2 diabetes mellitus with hyperglycemia (5) HTN (hypertension) Current Visit: No Status: Chronic Assessment and plan: Chronic, stable. -Continue CCB -continue to hold HCTZ Qualifiers: Hypertension type: essential hypertension Qualified Code(s): I10 - Essential (primary) hypertension (6) Spina bifida Current Visit: No Status: Chronic Assessment and plan: Chronic, Stable Qualifiers: Spinal region: unspecified Presence of hydrocephalus: unspecified hydrocephalus presence Qualified Code(s): Q05.9 - Spina bifida, unspecified (7) CAD (coronary artery disease) Current Visit: Yes Status: Chronic Assessment and plan: Chronic, Stable. -No current CP. -Continue home meds. Qualifiers: Coronary Disease-Associated Artery/Lesion type: [place] artery [place] vs. transplanted heart: [place] heart Associated angina: without angina Qualified Code(s): I25.10 - Atherosclerotic heart disease of [place] coronary artery without angina pectoris - Subjective Interval history: Patient no longer demanding to leave. Patient complaining of neck pain. She reports diarrhea has resolved. She reports some nausea with change in abx. Patient denies abd pain, blood in stool, vomiting. Sensitivities returned and switched patient from Zosyn to Ertapenem. - Constitutional Vitals: Temp Pulse Resp BP Pulse Ox 97.9 F 56 18 150/82 96 03/06/17 07:10 03/06/17 07:10 03/06/17 07:10 03/06/17 07:10 03/06/17 07:10 General appearance: Present: A&O X 3, no acute distress - Head Head exam: Present: atraumatic, normocephalic - Eye Eye exam: Present: PERRL, conjuntiva pink, sclera anicteric Pupils: Present: PERRL - Neck Neck exam general surgery: Present: tenderness (posterior paraspinal and occipital musculature ), supple, trachea midline - Respiratory Respiratory exam: Present: CTAB. Absent: accessory muscle use, rales, rhonchi, wheezes - Cardiovascular Cardiovascular exam: Present: RRR, +S1, +S2, systolic murmur. Absent: diastolic murmur, gallop, rubs - GI/Abdominal GI/Abdominal exam: Present: normal bowel sounds, soft, no peritoneal signs. Absent: distended, tenderness - Extremities Exam Extremities exam: Present: warm. Absent: calf tenderness, cyanotic, pedal edema - Neurological Exam Neurological exam: Present: alert, oriented X3, no focal deficits. Absent: facial droop, speech deficit - Skin Skin exam: Present: dry, intact, warm Internal Medicine: Result - Labs CBC & Chem 7: 03/06/17 05:33 03/06/17 05:33 Labs: Short CBC 03/06/17 Range/Units 05:33 WBC 7.2 (4.3-11.1) K/mcL Hgb 10.9 L D (11.5-15.4) g/dL Hct 35.4 (35.3-44.9) % Plt Count 357 (140-400) K/mcL BMP 03/06/17 05:33 Sodium 144 Potassium 3.4 L Chloride 106 Carbon Dioxide 24 BUN 26 H Creatinine 0.83 Glucose 103 H Calcium 10.5 D - ABG Interpretation ABG results: PT/INR, D-dimer PT 11.7 Seconds (9.4-12.1) 03/02/17 15:05 Consult Discharge Plan - Plan Instructions: Nitrofurantoin Combination (By mouth), Acute Pyelonephritis (GEN) , Urinary Tract Infection in Women, Mail Distribution Scheme Examiner (GEN) Additional Instructions: Please follow up with your primary care provider within 1 week of discharge. Please resume all your home medications except for Hydrochlorothiazide (HCTZ). Please do not take you Hydrochlorothiazide (HCTZ) anymore. Please take your antibiotics as prescribed. We still do not have culture results yet, but based on your prior infection this abx should be sufficient, but please follow up closely with your Primary Care Provider in case the antibiotic needs to be changed. Please return to the hospital if you have any new or worsening symptoms. Referrals: Lorena Velazquez MD [Primary Care Provider] - 03/11/17 10:45 am Prescriptions: Ertapenem Sodium [Invanz] 1 gm IV DAILY #10 vial.Meek Dudley - Last Filed: 03/06/17 18:35> Date of Encounter: 03/06/17 - Assessment and plan (1) Acute pyelonephritis Current Visit: Yes Status: Acute (2) CAD (coronary artery disease) Current Visit: Yes Status: Chronic Qualifiers: Coronary Disease-Associated Artery/Lesion type: [place] artery [place] vs. transplanted heart: [place] heart Associated angina: without angina Qualified Code(s): I25.10 - Atherosclerotic heart disease of [place] coronary artery without angina pectoris (3) Hyponatremia Current Visit: Yes Status: Acute (4) Diabetes Current Visit: No Status: Chronic Qualifiers: Diabetes mellitus type: type 2 Diabetes mellitus complication status: with hyperglycemia Diabetes mellitus long-term insulin use: without long-term use Qualified Code(s): E11.65 - Type 2 diabetes mellitus with hyperglycemia (5) HTN (hypertension) Current Visit: No Status: Chronic Qualifiers: Hypertension type: essential hypertension Qualified Code(s): I10 - Essential (primary) hypertension (6) Spina bifida Current Visit: No Status: Chronic Qualifiers: Spinal region: lumbosacral Presence of hydrocephalus: without hydrocephalus Qualified Code(s): Q05.7 - Lumbar spina bifida without hydrocephalus (7) Anemia Current Visit: Yes Status: Acute Qualifiers: Anemia type: iron deficiency Iron deficiency anemia type: other iron deficiency Qualified Code(s): D50.8 - Other iron deficiency anemias - Constitutional Vitals: Temp Pulse Resp BP Pulse Ox 98.9 F 67 16 133/78 94 03/06/17 14:58 03/06/17 14:58 03/06/17 14:58 03/06/17 14:58 03/06/17 14:58 Internal Medicine: Result - Labs CBC & Chem 7: 03/06/17 05:33 03/06/17 05:33 Labs: Short CBC 03/06/17 Range/Units 05:33 WBC 7.2 (4.3-11.1) K/mcL Hgb 10.9 L D (11.5-15.4) g/dL Hct 35.4 (35.3-44.9) % Plt Count 357 (140-400) K/mcL BMP 03/06/17 05:33 Sodium 144 Potassium 3.4 L Chloride 106 Carbon Dioxide 24 BUN 26 H Creatinine 0.83 Glucose 103 H Calcium 10.5 D - ABG Interpretation ABG results: PT/INR, D-dimer PT 11.7 Seconds (9.4-12.1) 03/02/17 15:05 - Attending Attestation I examined this patient and my medical decision-making was reviewed with the Resident Physician on 03/06/17. I agree with the documented findings, disposition and treatment plan as described except to the extent set forth below. Ms Mitchell is currently admitted for ESBL E coli UTI. She remains moderate risk due to need for IV abx and risk for worsening clinical status. Ms Mitchell did not sleep well last night and is tired now. No fever or chills. No CP. Exam Alert but tired Mucus membranes dry Heart reg No wheeze Abd soft. I/P 1. ESBL E coli UTI 2. Diarrhea Further diagnoses and plan as above.
[2017-03-06] MEDS: Methyl Salicylate/Menthol 28 GM TUBE TP PRN ×3 (08:17→22:13)
[2017-03-06] MEDS: Ondansetron 4 MG/2 ML VIAL IVP PRN (09:03)
[2017-03-07 04:08] LABS: Hematocrit 31.7 % (35.3-44.9); Hemoglobin 9.5 g/dL (11.5-15.4); Mean Corpuscular Volume 83.4 fL (83.0-100.0); Platelet Count 369 K/mcL (140-400); Red Cell Distribution Width 18.6 % (11.5-14.5)
[2017-03-07 04:21] LABS: BUN/Creatinine Ratio 27 (6-26); Blood Urea Nitrogen 23 mg/dL (7-20); Calcium 9.4 mg/dL (8.6-10.8); Carbon Dioxide 24 mEq/L (19-29); Chloride 106 mEq/L (98-109); Glucose 126 mg/dL (70-99); Osmolality,Calculated 297 (280-300); Sodium 141 mEq/L (136-145); eGFR For African Americans > 60 (> 60); eGFR For Non-African Americans > 60 (> 60)
[2017-03-07 04:23] LABS: Potassium 4.7 mEq/L (3.5-4.5)
--- NOTE | 2017-03-07 08:24 | Internal Med Progress Note ---
<Chris Agustin - Last Filed: 03/07/17 11:04> Date of Encounter: 03/07/17 Time of Encounter: 10:13 - Assessment and plan (1) Pyelonephritis Current Visit: Yes Status: Acute Assessment and plan: Hx of recurrent UTIs, patient straight caths at home 2/2 to paraplegia 2/2 spina bifida. pt last had UTI 02/[address] abd shows fat stranding and retroperitoneal adenopathy consistent with pyelonephritis. Nephrology on board. UA showed blood, leuk esterase, TNTC WBC, man squams, many bacteria. WBC down from 13.5 to 8.2 today Urine Cx grew ESBL E. Coli continue ertapenem Patient will need to continue ertapenem out patient, but will not be able to be set up until tuesday due to holiday. (2) Hyponatremia Current Visit: Yes Status: Acute Assessment and plan: resolved. likely secondary to GI loses. Patient Na 120 on admission. Patient was given NS 0.9% Na 137 the next morning. 141 now. TSH, cortisol normal. continue to monitor (3) Anemia Current Visit: Yes Status: Acute Assessment and plan: Patient's Hgb 9.0 on admission. Hgb 9.5 today last hgb prior to admission 09/20/16 was 12.6 micorcytic Likely Iron deficiency 2/2 to blood loss patient has hx of bleeding hemorrhoids. Patient hemodynamically stable. No signs of bleeding on exam. Iron 17, % Saturation 6, Transferrin 203 continue to monitor. Transfuse if less than 7 Qualifiers: Anemia type: iron deficiency Iron deficiency anemia type: other iron deficiency Qualified Code(s): D50.8 - Other iron deficiency anemias (4) Diabetes Current Visit: No Status: Chronic Assessment and plan: Chronic, Stable. -continue SSI, -Diabetic diet, -acuchecks Qualifiers: Diabetes mellitus type: type 2 Diabetes mellitus complication status: with hyperglycemia Diabetes mellitus termite control representative insulin use: without termite control representative use Qualified Code(s): E11.65 - Type 2 diabetes mellitus with hyperglycemia (5) HTN (hypertension) Current Visit: No Status: Chronic Assessment and plan: Chronic, stable. Continue CCB continue to hold HCTZ Qualifiers: Hypertension type: essential hypertension Qualified Code(s): I10 - Essential (primary) hypertension (6) Spina bifida Current Visit: No Status: Chronic Assessment and plan: -Chronic, Stable Qualifiers: Spinal region: unspecified Presence of hydrocephalus: unspecified hydrocephalus presence Qualified Code(s): Q05.9 - Spina bifida, unspecified (7) CAD (coronary artery disease) Current Visit: Yes Status: Chronic Assessment and plan: Chronic, Stable. No current CP. Continue home meds. Qualifiers: Coronary Disease-Associated Artery/Lesion type: [place] artery [place] vs. transplanted heart: [place] heart Associated angina: without angina Qualified Code(s): I25.10 - Atherosclerotic heart disease of [place] coronary artery without angina pectoris - Subjective Interval history: Patient still concerned about neck pain. reassured patient this is likely muscular in nature, no need for imaging. Patient complaining of LUE swelling. Venous doppler negative. Patient will be discharged tomorrow on IV abx once set up. - Constitutional Vitals: Temp Pulse Resp BP Pulse Ox 98.1 F 59 14 149/84 93 03/07/17 07:03/07/17 07:17 03/07/17 07:17 03/07/17 07:17 03/07/17 07:17 General appearance: Present: A&O X 3, no acute distress - Head Head exam: Present: atraumatic, normocephalic - Eye Eye exam: Present: conjuntiva pink, sclera anicteric - Neck Neck exam general surgery: Present: full ROM, tenderness, supple, trachea midline. Absent: nuchal rigidity Additional comments: some tense paraspinal musculature back of head into neck. - Respiratory Respiratory exam: Present: CTAB. Absent: accessory muscle use, rales, rhonchi, wheezes - Cardiovascular Cardiovascular exam: Present: RRR, +S1, +S2, systolic murmur. Absent: diastolic murmur, gallop, rubs - GI/Abdominal GI/Abdominal exam: Present: normal bowel sounds, soft, no peritoneal signs. Absent: distended, tenderness - Extremities Exam Extremities exam: Present: warm, radial pulses palpable and symmetrical. Absent : calf tenderness, cyanotic, pedal edema - Neurological Exam Neurological exam: Present: alert, oriented X3. Absent: facial droop, speech deficit - Skin Skin exam: Present: dry, intact, warm Internal Medicine: Result - Labs CBC & Chem 7: 03/07/17 03:57 03/07/17 03:57 Labs: Short CBC 03/07/17 Range/Units 03:57 WBC 8.2 (4.3-11.1) K/mcL Hgb 9.5 L (11.5-15.4) g/dL Hct 31.7 L (35.3-44.9) % Plt Count 369 (140-400) K/mcL BMP 03/07/17 03:57 Sodium 141 Potassium 4.7 H D Chloride 106 Carbon Dioxide 24 BUN 23 H Creatinine 0.86 Glucose 126 H Calcium 9.4 - ABG Interpretation ABG results: PT/INR, D-dimer PT 11.7 Seconds (9.4-12.1) 03/02/17 15:05 Consult Discharge Plan - Plan Instructions: Nitrofurantoin Combination (By mouth), Acute Pyelonephritis (GEN) , Urinary Tract Infection in Women, Pumping Station Engineer (GEN) Additional Instructions: Please follow up with your primary care provider within 1 week of discharge. Please resume all your home medications except for Hydrochlorothiazide (HCTZ). Please do not take you Hydrochlorothiazide (HCTZ) anymore. Please take your antibiotics as prescribed. We still do not have culture results yet, but based on your prior infection this abx should be sufficient, but please follow up closely with your Primary Care Provider in case the antibiotic needs to be changed. Please return to the hospital if you have any new or worsening symptoms. Referrals: Lorena Velazquez MD [Primary Care Provider] - 03/11/17 10:45 am Prescriptions: Ertapenem Sodium [Invanz] 1 gm IV DAILY #10 vial.[place] <Meek Coronado - Last Filed: 03/07/17 14:27> Date of Encounter: 03/07/17 - Assessment and plan (1) Acute pyelonephritis Current Visit: Yes Status: Acute (2) CAD (coronary artery disease) Current Visit: Yes Status: Chronic Qualifiers: Coronary Disease-Associated Artery/Lesion type: [place] artery [place] vs. transplanted heart: [place] heart Associated angina: without angina Qualified Code(s): I25.10 - Atherosclerotic heart disease of [place] coronary artery without angina pectoris (3) Hyponatremia Current Visit: Yes Status: Acute (4) Diabetes Current Visit: No Status: Chronic Qualifiers: Diabetes mellitus type: type 2 Diabetes mellitus complication status: with hyperglycemia Diabetes mellitus termite control representative insulin use: without intermediate use Qualified Code(s): E11.65 - Type 2 diabetes mellitus with hyperglycemia (5) HTN (hypertension) Current Visit: No Status: Chronic Qualifiers: Hypertension type: essential hypertension Qualified Code(s): I10 - Essential (primary) hypertension (6) Spina bifida Current Visit: No Status: Chronic Qualifiers: Spinal region: lumbosacral Presence of hydrocephalus: without hydrocephalus Qualified Code(s): Q05.7 - Lumbar spina bifida without hydrocephalus (7) Anemia Current Visit: Yes Status: Acute Qualifiers: Anemia type: iron deficiency Iron deficiency anemia type: other iron deficiency Qualified Code(s): D50.8 - Other iron deficiency anemias - Constitutional Vitals: Temp Pulse Resp BP Pulse Ox 98.3 F 69 14 122/82 95 03/07/17 11:00 03/07/17 11:00 03/07/17 11:00 03/07/17 11:00 03/07/17 11:00 Internal Medicine: Result - Labs CBC & Chem 7: 03/07/17 03:57 03/07/17 03:57 Labs: Short CBC 03/07/17 Range/Units 03:57 WBC 8.2 (4.3-11.1) K/mcL Hgb 9.5 L (11.5-15.4) g/dL Hct 31.7 L (35.3-44.9) % Plt Count 369 (140-400) K/mcL BMP 03/07/17 03:57 Sodium 141 Potassium 4.7 H D Chloride 106 Carbon Dioxide 24 BUN 23 H Creatinine 0.86 Glucose 126 H Calcium 9.4 - ABG Interpretation ABG results: PT/INR, D-dimer PT 11.7 Seconds (9.4-12.1) 03/02/17 15:05 - Attending Attestation I examined this patient and my medical decision-making was reviewed with the Resident Physician on 03/07/17. I agree with the documented findings, disposition and treatment plan as described except to the extent set forth below. Ms. Mitchell is currently admitted for ESBL E coli pyelonephritis. She remains moderate risk due to potential for worsening clinical status and IV meds. Ms. Mitchell feels OK. No new issues overnight. No fever or chills. No SOB. Waiting discharge tomorrow on IV abx. Exam Alert. Comfortable. Heart reg No wheeze Abd soft I/P 1. ESBL E coli pyelo 2. Spina bifida Further diagnoses and plan as above.
[2017-03-07] MEDS: Aspirin Enteric Coated 81 MG Tablet PO SCH (08:57)
[2017-03-07] MEDS: ARIPiprazole 5 MG TABLET PO SCH (08:58)
[2017-03-07] MEDS: Ertapenem 1,000 MG in 0.9 % Sodium Chloride Mini Bag 100 ML IVPB SCH (08:58)
[2017-03-07] MEDS: Acetaminophen 325 MG TABLET PO PRN ×2 (08:58→20:03)
[2017-03-07] MEDS: Methyl Salicylate/Menthol 28 GM TUBE TP PRN (08:59)
[2017-03-07] MEDS: Insulin LISPRO 300 UNITS/3 ML VIAL SQ SCH ×4 (08:59→22:47)
[2017-03-08 05:10] LABS: Hematocrit 33.6 % (35.3-44.9); Hemoglobin 10.1 g/dL (11.5-15.4); Mean Corpuscular HGB Conc 30.1 g/dL (31.6-35.5); Mean Corpuscular Volume 83.2 fL (83.0-100.0); Platelet Count 431 K/mcL (140-400); Red Blood Count 4.04 M/mcL (3.82-4.97); Red Cell Distribution Width 18.2 % (11.5-14.5)
[2017-03-08 05:25] LABS: BUN/Creatinine Ratio 26 (6-26); Blood Urea Nitrogen 19 mg/dL (7-20); Calcium 9.6 mg/dL (8.6-10.8); Carbon Dioxide 26 mEq/L (19-29); Chloride 104 mEq/L (98-109); Glucose 97 mg/dL (70-99); Osmolality,Calculated 296 (280-300); Potassium 4.1 mEq/L (3.5-4.5); Sodium 142 mEq/L (136-145); eGFR For African Americans > 60 (> 60); eGFR For Non-African Americans > 60 (> 60)
[2017-03-08 05:39] VITALS: BP 133/76
[2017-03-08] MEDS: Acetaminophen 325 MG TABLET PO PRN (06:19)
[2017-03-08] MEDS: Insulin LISPRO 300 UNITS/3 ML VIAL SQ SCH ×2 (07:28→12:44)
--- NOTE | 2017-03-08 08:05 | Discharge Summary ---
Date of Encounter: 03/08/17 Time of Encounter: 08:02 - Discharge Diagnosis (1) Acute pyelonephritis Priority: Primary Status: Acute (2) Infection due to ESBL-producing Escherichia coli Priority: Primary Status: Acute (3) UTI (urinary tract infection) Priority: Primary Status: Acute Qualifiers: Urinary tract infection type: catheter-associated UTI Encounter type: subsequent encounter Qualified Code(s): T83.511D - Infection and inflammatory reaction due to indwelling urethral catheter, subsequent encounter; N39.0 - Urinary tract infection, site not specified (4) Hyponatremia Priority: Primary Status: Resolved (5) History of spina bifida Priority: Secondary Status: Chronic (6) Diabetes Priority: Secondary Status: Chronic Qualifiers: Diabetes mellitus type: type 2 Diabetes mellitus complication status: with hyperglycemia 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: without snf use Qualified Code(s): E11.65 - Type 2 diabetes mellitus with hyperglycemia (7) HTN (hypertension) Priority: Secondary Status: Chronic Qualifiers: Hypertension type: essential hypertension Qualified Code(s): I10 - Essential (primary) hypertension (8) GERD (gastroesophageal reflux disease) Priority: Secondary Status: Chronic Qualifiers: Esophagitis presence: without esophagitis Qualified Code(s): K21.9 - Gastro -esophageal reflux disease without esophagitis - Discharge Medications Prescriptions: Ertapenem [INVanz] 1,000 mg IVPB DAILY 5 Days Lactobacillus Acidophilus [Acidophilus Probiotic] 2 mg PO BID #20 Home Medications: Aripiprazole [Abilify] 15 mg PO DAILY 05/14/15 [History] Aspirin Enteric Coated [Aspirin EC] 81 mg PO DAILY 05/14/15 [History] Metoclopramide [Reglan] 5 mg PO QID 05/14/15 [History] Verapamil [Isoptin] 80 mg PO DAILY 05/14/15 [History] Omeprazole [PriLOSEC] 20 mg PO BID #0 07/03/15 [History] ALPRAZolam [Xanax 0.5 MG Tablet] 0.5 mg PO HS 01/26/16 [History] Acetaminophen [Tylenol] 650 mg PO Q6HR PRN 01/26/16 [History] Bisacodyl [Dulcolax] 10 mg RC Q48H PRN 01/26/16 [History] Cholecalciferol (D-3) [Vitamin D] 1,000 unit PO DAILY 01/26/16 [History] Lidocaine HCl [Aspercreme] 1 appl TP TID PRN 01/26/16 [History] Multivitamin [Zoo Chews] 1 each PO DAILY 01/26/16 [History] Nystatin POWDER [Nystop] 1 appl TP BID 01/26/16 [History] Phenyleph/Pramoxin/Glycr/W.pet [Preparation H Cream] 1 appl RC QID PRN 01/26/16 [History] Polyethylene Glycol 3350 [MiraLAX] 17 gm PO DAILY PRN 01/26/16 [History] Pravastatin Sodium [Pravachol] 20 mg PO HS 01/26/16 [History] metFORMIN [Glucophage] 500 mg PO QPM 01/26/16 [History] Oxybutynin Chloride [Ditropan Xl] 10 mg PO BID 03/02/17 [History] Ertapenem [INVanz] 1,000 mg IVPB DAILY 5 Days 03/08/17 [Rx] Lactobacillus Acidophilus [Acidophilus Probiotic] 2 mg PO BID #20 03/08/17 [Rx] Allergies/Adverse Reactions: 3 Allergy/AdvReac Type Severity Reaction Status Date / Time alcohol Allergy Rash Verified 09/20/16 12:49 Amoxicillin [From Augmentin] Allergy Rash Verified 09/20/16 12:49 caffeine [From Cafergot] Allergy Rash Verified 09/20/16 12:49 cephalexin Allergy Rash Verified 09/20/16 15:54 clarithromycin [From Biaxin] Allergy Rash Verified 09/20/16 12:49 clavulanic acid Allergy Rash Verified 09/20/16 12:49 [From Augmentin] doxycycline Allergy Rash Verified 09/20/16 12:49 Ergotamine [From Cafergot] Allergy Rash Verified 09/20/16 12:49 nitrofurantoin Allergy Rash Verified 09/20/16 12:49 [From Macrodantin] Oxycodone [From Percocet] Allergy Rash Verified 09/20/16 12:49 Sulfa (Sulfonamide Allergy Rash Verified 09/20/16 12:49 Antibiotics) sulfabenzamide Allergy Rash Verified 09/20/16 12:49 Hydromorphone [From Dilaudid] AdvReac Headache Verified 09/20/16 12:49 morphine AdvReac Headache Verified 09/20/16 12:49 Procedures/tests Complete & Pending: Procedures Performed prior 72 hours Category Date Time Status EV venous imaging UE LT Routine Y 03/07/17 13:20 Completed Date of admission: 03/02/17 19:05 Primary care physician: Lorena Velazquez Consults: 03/02/17 19:08 Consult to Nephrology [CONS] Routine Consulting Provider: [facility] Spctangelat DEWEY Reason for Consult: Pyelonephritis Call Completed: No 03/02/17 21:12 Consult to Pastoral Services [CONS] Routine Comment: 03/04/17 15:08 Consult to Invasive Line Access Team [CONS] Routine Reason for Consult: Limited access with KELSI Line Type: EPIV PICC line indications: intermediate frame tender Med/Antibiotic Time Notified: 15:09 Call Completed: Yes - Patient Status Disposition: Home Health Service Condition: Good Overall status at discharge: patient is back to baseline - Discharge Instructions Instructions: Acute Pyelonephritis (GEN), Urinary Tract Infection in Women, Manufacturing Lead (GEN) Follow Up With: Lorena Velazquez MD [Primary Care Provider] - 03/11/17 10:45 am Additional Instructions: Please follow up with your primary care provider within 1 week of discharge. Please resume all your home medications except for Hydrochlorothiazide (HCTZ). Please do not take you Hydrochlorothiazide (HCTZ) anymore. Please ontinue taking IV Abx for another 5 days Please return to the hospital if you have any new or worsening symptoms. If your neck pain gets worse, you may need to talk to your PCP regarding further work up such as MRI of Neck - Diet and Activity Activity: increase activity as tolerated Diet: advance to your usual diet Hospital course: Ms. Mitchell is a 52 year old female with PMH spina bifida, CAD, hypertension, diabetes and recurrent UTIs who presented to [facility] on 03/02/2017 with complaints of fevers chills and low back pain. She was found to have pyelonephritis and was admitted for IV ATB. Pt was admitted in the hospital and started her on empirical abx with Zosyn. She also happened to have hypovolemic hyponatremia due to UTI and Pyelonephritis. She was placed on IV hdyration and her Na improved, today her Na level in 140's. Her urine cx came back as ESBL E. Coli. I did reviewed all her past urine Urine cx, since I was concerned for colonization. Interestingly she used to have barker sensitive E. Coli infections untill 12/01/2016, since then she started growing ESBL E. Coli. Also It does not look like colonization since her repeated urine cx came back as no growth. We switched her abx to Ertapanem for total 10 days course after negative Urine cx. Also counseled and educated the pt try to keep as much as sterilize she can for her straight catheters. She had powerglid IV access placed in, which we will use for termite technician IV abx usage. She had Cervical spine X ray done for her neck pain, which showed mild degenrative disease only, no fractures noticed. Recommend out pt MRI of cervical spine if she develops constantly and worsening neck pain - Time Spent with Patient Total time spent providing and/or coordinating discharge services: Greater than 30 minutes (Spent 45 minutes on this patient's discharge summary due to complex medical problems and patient needed a lot of education regarding discharge instructions) - Constitutional Vitals: Temp Pulse Resp BP Pulse Ox 98.6 F 58 18 133/76 93 03/08/17 05:35 03/08/17 05:35 03/08/17 05:35 03/08/17 05:35 03/08/17 05:35 General appearance: Present: A&O X 3, no acute distress - Head Head exam: Present: atraumatic, normal inspection - Respiratory Respiratory exam: Present: CTAB. Absent: accessory muscle use, rales, rhonchi, wheezes - Cardiovascular Cardiovascular exam: Present: RRR, +S1, +S2. Absent: gallop - GI/Abdominal GI/Abdominal exam: Present: normal bowel sounds, soft. Absent: rebound, rigid, tenderness - Neurological Exam Neurological exam: Present: alert, oriented X3 - Psychiatric Psychiatric exam: Present: normal affect, normal mood
--- NOTE | 2017-03-08 08:25 | Venous Imaging Report ---
UE Venous Duplex Patient Name:Samara Mitchell Order Number:[id number] Procedure Date:03/07/2017 Date:1965Age:52 yrs Gender:Female Location:[facility] Room #: 3A12 [employer] Sealer:Tiffanie Moran RVT Referring MD:Meek Coronado DO devops consultant:Lorena Velazquez MD Reading MD:Gianni Miranda MD Primary Indications:Edema Secondary Indications: Impressions: Normal left upper extremity deep and superficial venous exam. Normal contralateral subclavian vein. Recommendations: Test completed on 03/07/2017 at 8:45:00 am. Findings Venous Duplex Results: Right: Venous imaging of the upper extremity reveals full patency and normal vessel compressibility of the right subclavian. Doppler signals in the evaluated veins were normal. Left: Venous imaging of the upper extremity reveals full patency and normal vessel compressibility of the left jugular, left subclavian, left axillary, left brachial, left cephalic, left basilic, left radial and left ulnar. Doppler signals in the evaluated veins were normal. Prior Study: No prior study available for comparison. Pt does have a PICC line in L arm. Results to [facility] on 03/07/17 @ 0845. Upper Extremity Venous Duplex Side Vein Compress Spontaneous Flow Augment Left Jugular Normal Yes Phasic Yes Left Subclavian Normal Yes Phasic Yes Left Axillary Normal Yes Phasic Yes Left Brachial Normal Yes Phasic Yes Left Cephalic Normal Yes Phasic Yes Left Basilic Normal Yes Phasic Yes Left Radial Normal Yes Phasic Yes Left Ulnar Normal Yes Phasic Yes Right Subclavian Normal Yes Phasic Yes Updated by Gianni Miranda MD on 03/08/2017 7:21:30 AM electronically signed on 03/08/2017 7:21:47 AM with status of Final
[2017-03-08] MEDS: Ertapenem 1,000 MG in 0.9 % Sodium Chloride Mini Bag 100 ML IVPB SCH (09:03)
[2017-03-08] MEDS: Aspirin Enteric Coated 81 MG Tablet PO SCH (09:04)
[2017-03-08] MEDS: ARIPiprazole 5 MG TABLET PO SCH (09:53)
--- NOTE | 2017-03-08 10:06 | Physician Discharge Referral ---
Home Health/Hosp Referral Info Transfer to: Home Health Provider in Charge Post Discharge: PCP - Diagnosis (1) Acute pyelonephritis Status: Acute (2) Infection due to ESBL-producing Escherichia coli Status: Acute (3) UTI (urinary tract infection) Status: Acute (4) Hyponatremia Status: Resolved (5) History of spina bifida Status: Chronic (6) Diabetes Status: Chronic (7) HTN (hypertension) Status: Chronic (8) GERD (gastroesophageal reflux disease) Status: Chronic - Respiratory Orders Smoking Cessation: Smoking cessation has been advised. For more information, call the [place] [employer] Quit Line at 2-701-LMCRNOW. - Services Needed Following services are medically necessary services: Nursing, Home Infusion - Transfer Medications Prescriptions: Ertapenem [INVanz] 1,000 mg IVPB DAILY 5 Days Lactobacillus Acidophilus [Acidophilus Probiotic] 2 mg PO BID #20 Home Medications: Aripiprazole [Abilify] 15 mg PO DAILY 05/14/15 [History] Aspirin Enteric Coated [Aspirin EC] 81 mg PO DAILY 05/14/15 [History] Metoclopramide [Reglan] 5 mg PO QID 05/14/15 [History] Verapamil [Isoptin] 80 mg PO DAILY 05/14/15 [History] Omeprazole [PriLOSEC] 20 mg PO BID #0 07/03/15 [History] ALPRAZolam [Xanax 0.5 MG Tablet] 0.5 mg PO HS 01/26/16 [History] Acetaminophen [Tylenol] 650 mg PO Q6HR PRN 01/26/16 [History] Bisacodyl [Dulcolax] 10 mg RC Q48H PRN 01/26/16 [History] Cholecalciferol (D-3) [Vitamin D] 1,000 unit PO DAILY 01/26/16 [History] Lidocaine HCl [Aspercreme] 1 appl TP TID PRN 01/26/16 [History] Multivitamin [Zoo Chews] 1 each PO DAILY 01/26/16 [History] Nystatin POWDER [Nystop] 1 appl TP BID 01/26/16 [History] Phenyleph/Pramoxin/Glycr/W.pet [Preparation H Cream] 1 appl RC QID PRN 01/26/16 [History] Polyethylene Glycol 3350 [MiraLAX] 17 gm PO DAILY PRN 01/26/16 [History] Pravastatin Sodium [Pravachol] 20 mg PO HS 01/26/16 [History] metFORMIN [Glucophage] 500 mg PO QPM 01/26/16 [History] Oxybutynin Chloride [Ditropan Xl] 10 mg PO BID 03/02/17 [History] Ertapenem [INVanz] 1,000 mg IVPB DAILY 5 Days 03/08/17 [Rx] Lactobacillus Acidophilus [Acidophilus Probiotic] 2 mg PO BID #20 03/08/17 [Rx] Allergies/Adverse Reactions: 3 Allergy/AdvReac Type Severity Reaction Status Date / Time alcohol Allergy Rash Verified 09/20/16 12:49 Amoxicillin [From Augmentin] Allergy Rash Verified 09/20/16 12:49 caffeine [From Cafergot] Allergy Rash Verified 09/20/16 12:49 cephalexin Allergy Rash Verified 09/20/16 15:54 clarithromycin [From Biaxin] Allergy Rash Verified 09/20/16 12:49 clavulanic acid Allergy Rash Verified 09/20/16 12:49 [From Augmentin] doxycycline Allergy Rash Verified 09/20/16 12:49 Ergotamine [From Cafergot] Allergy Rash Verified 09/20/16 12:49 nitrofurantoin Allergy Rash Verified 09/20/16 12:49 [From Macrodantin] Oxycodone [From Percocet] Allergy Rash Verified 09/20/16 12:49 Sulfa (Sulfonamide Allergy Rash Verified 09/20/16 12:49 Antibiotics) sulfabenzamide Allergy Rash Verified 09/20/16 12:49 Hydromorphone [From Dilaudid] AdvReac Headache Verified 09/20/16 12:49 morphine AdvReac Headache Verified 09/20/16 12:49 Certification: Further, I certify that my clinical findings support that this patient is homebound (i.e. absences from home require considerable and taxing effort and are for medical reasons or nondenominational services or infrequently or short duration when for other reasons) because: Homebound Reason: Patient requires assistance of a person or device to safely leave home Attestation: My signature below is to certify that this patient is under my care and that I, or nurse practitioner, or a physician's apartment assistant manager working with me, has a face-to -face encounter with this patient.
== END 2017-03-08 16:25 | disposition home health service (06) | DRG 699 ==
LOC: EMEROO 14:23 → 3ANU 14:23 → SUATTDRO 19:05 → 3ANU 19:22
PROVIDERS: ADMIT Nurse Practitioner Family; ATTEND Family Medicine

== ENCOUNTER 2017-11-16 17:51 | Inpatient (IN) ==
[2017-11-16 19:30] LABS: Basophils # 0.1 K/mcL (0.0-0.2); Basophils % 0.3 %; Eosinophils % 0.1 %; Hematocrit 35.2 % (35.3-44.9); Hemoglobin 10.6 g/dL (11.5-15.4); Immature Granulocytes % 0.7 % (0-4); Lymphocytes # 1.4 K/mcL (0.6-4.6); Lymphocytes % 7.8 %; Mean Corpuscular HGB Conc 30.1 g/dL (31.6-35.5); Mean Corpuscular Hemoglobin 25.3 pg (28.0-33.3); Mean Platelet Volume 9.9 fL (9.4-12.4); Monocytes # 0.8 K/mcL (0.0-1.3); Monocytes % 4.5 %; Neutrophils # 15.7 K/mcL (1.6-8.9); Platelet Count 293 K/mcL (140-400); Red Blood Count 4.19 M/mcL (3.82-4.97); Red Cell Distribution Width 16.9 % (11.5-14.5); Segmented Neutrophils % 86.6 %
[2017-11-16] MEDS ORDERED: Levofloxacin 750 MG/150 ML 750 MG/150 ML BAG IVPB ONE (19:36)
[2017-11-16] MEDS ORDERED: 0.9 % Sodium Chloride 1,000 ML IVC ONE (19:36)
[2017-11-16 19:40] LABS: Bilirubin,Urine Negative (Negative); Blood,Urine Large (Negative); Clarity,Urine Cloudy (Clear); Color,Urine Yellow (Yellow); Glucose,Urine (UA) Normal (Normal); Ketones,Urine Negative (Negative); Leukocyte Esterase,Urine Large (Negative); Nitrite,Urine Negative (Negative); PH,Urine 6.5 pH Units (5.0-8.0); Protein,Urine 30 mg/dL (Neg-Trace); Specific Gravity,Urine 1.012 (1.010-1.025); Urobilinogen,Urine Normal (Normal)
[2017-11-16 19:42] LABS: Bacteria,Urine Many per hpf (None-Few); Hyaline Casts,Urine None Seen per lpf (None-Few); Squamous Epithelial Cell,Urine Many per lpf (None-Few); WBC,Urine TNTC per hpf (0-3)
[2017-11-16 19:51] LABS: Blood Urea Nitrogen 39 mg/dL (6-20); Carbon Dioxide 21 mEq/L (23-29); Chloride 107 mEq/L (98-107); Glucose 168 mg/dL (70-105); Osmolality,Calculated 297 (280-300); Potassium 3.7 mEq/L (3.5-5.1); Sodium 137 mEq/L (136-145)
[2017-11-16 20:06] LABS: BUN/Creatinine Ratio 41 (6-26); eGFR For African Americans > 60 (> 60); eGFR For Non-African Americans > 60 (> 60)
[2017-11-16] MEDS ORDERED: Ertapenem 1,000 MG in 0.9 % Sodium Chloride Mini Bag 100 ML IVPB ONE (20:21)
--- NOTE | 2017-11-16 20:31 | Emergency Department Note ---
Disposition Clinical Impression: UTI (urinary tract infection), SIRS (systemic inflammatory response syndrome) Disposition: Admitted As Inpatient Condition: Good Referrals: Lorena Velazquez MD [Primary Care Provider] - Time of Disposition: 20:32 General Adult HPI - General Chief complaint: ED Urogenital-Female Stated complaint: UTI Time Seen by Provider: 11/16/17 20:19 Source: patient, EMS Limitations: no limitations Nursing Notes Reviewed: Yes Vital Signs Reviewed: Yes - History of Present Illness HPI Narrative: 52-year-old female presents to the emergency room for concerns for UTI. Patient has spina bifida and has a history of hydrocephalus with a MASK INSPECTOR shunt. She has a history of self-catheterization for her urine. She does have home health that stays with her throughout the day and they have been doing street Her. She Wears a Diaper Evenings for When She Urinates. She States She Has Been Having Dysuria As Well As Lower Abdominal Pain and Some Lower Back Pain As Well As a Fever That Started Yesterday. Symptoms Are Worse Today. She Had a Fever of 102.3 upon Arrival. Her Pain in the Abdomen Is in the Suprapubic Region. No Other Complaints. No Other Modifying Factors. Pain Scale: 7 - Related Data Home Medications Medication Instructions Recorded Confirmed Aripiprazole [Abilify] 15 mg PO DAILY 05/14/15 03/02/17 Aspirin Enteric Coated [Aspirin EC] 81 mg PO DAILY 05/14/15 03/02/17 Metoclopramide [Reglan] 5 mg PO QID 05/14/15 03/02/17 Verapamil [Isoptin] 80 mg PO DAILY 05/14/15 03/02/17 Omeprazole [PriLOSEC] 20 mg PO BID #0 07/03/15 03/02/17 ALPRAZolam [Xanax 0.5 MG Tablet] 0.5 mg PO HS 01/26/16 03/02/17 Acetaminophen [Tylenol] 650 mg PO Q6HR PRN 01/26/16 03/02/17 Bisacodyl [Dulcolax] 10 mg RC Q48H PRN 01/26/16 03/02/17 Cholecalciferol (D-3) [Vitamin D] 1,000 unit PO DAILY 01/26/16 03/02/17 Lidocaine HCl [Aspercreme] 1 appl TP TID PRN 01/26/16 03/02/17 Multivitamin [Zoo Chews] 1 each PO DAILY 01/26/16 03/02/17 Nystatin POWDER [Nystop] 1 appl TP BID 01/26/16 03/02/17 Phenyleph/Pramoxin/Glycr/W.pet 1 appl RC QID PRN 01/26/16 03/02/17 [Preparation H Cream] Polyethylene Glycol 3350 [MiraLAX] 17 gm PO DAILY PRN 01/26/16 03/02/17 Pravastatin Sodium [Pravachol] 20 mg PO HS 01/26/16 03/02/17 metFORMIN [Glucophage] 500 mg PO QPM 01/26/16 03/02/17 Oxybutynin Chloride [Ditropan Xl] 10 mg PO BID 03/02/17 03/02/17 Previous Rx's Medication Instructions Recorded Ertapenem [INVanz] 1,000 mg IVPB DAILY 5 Days vial 03/08/17 Lactobacillus Acidophilus 2 mg PO BID #20 03/08/17 [Acidophilus Probiotic] Allergies Allergy/AdvReac Type Severity Reaction Status Date / Time alcohol Allergy Rash Verified 09/20/16 12:49 Amoxicillin [From Augmentin] Allergy Rash Verified 09/20/16 12:49 caffeine [From Cafergot] Allergy Rash Verified 09/20/16 12:49 cephalexin Allergy Rash Verified 09/20/16 15:54 clarithromycin [From Biaxin] Allergy Rash Verified 09/20/16 12:49 clavulanic acid Allergy Rash Verified 09/20/16 12:49 [From Augmentin] doxycycline Allergy Rash Verified 09/20/16 12:49 Ergotamine [From Cafergot] Allergy Rash Verified 09/20/16 12:49 nitrofurantoin Allergy Rash Verified 09/20/16 12:49 [From Macrodantin] Oxycodone [From Percocet] Allergy Rash Verified 09/20/16 12:49 Sulfa (Sulfonamide Allergy Rash Verified 09/20/16 12:49 Antibiotics) sulfabenzamide Allergy Rash Verified 09/20/16 12:49 Hydromorphone [From Dilaudid] AdvReac Headache Verified 09/20/16 12:49 morphine AdvReac Headache Verified 09/20/16 12:49 All systems ED: reviewed and negative except as stated. Constitutional: Reports: fever, chills Eyes: Reports: as per HPI ENT ED: Reports: as per HPI Cardiovascular: Reports: as per HPI Respiratory: Reports: as per HPI Gastrointestinal: Reports: abdominal pain Genitourinary: Reports: dysuria Musculoskeletal: Reports: back pain Integumentary: Reports: as per HPI Neurological: Reports: as per HPI Psychiatric: Reports: as per HPI Endocrine: Reports: as per HPI Hematological/Lymphatic: Reports: as per HPI Allergic/Immunologic: Reports: as per HPI Past Medical History - Past Medical History Medical history: Reports: diabetes, GERD, hyperlipidemia, hypertension, myocardial infarction, other Surgical history: Reports: angioplasty/stent, appendectomy, cholecystectomy, other Psychiatric history: Reports: anxiety, depression, other - Social History Smoking Status: Never smoker Smokeless Tobacco Status: No Alcohol use: Reports: none Drug use: Reports: none Physical Exam - General Limitations: no limitations General appearance: alert, in no apparent distress - Head Head exam: atraumatic, normocephalic - Eye Eye exam: Present: normal appearance - ENT ENT exam: normal exam, normal oropharynx - Neck Neck exam: Present: normal inspection - Chest Chest inspection: Present: normal inspection - Respiratory Respiratory exam: Present: normal lung sounds bilaterally. Absent: respiratory distress, wheezes, stridor - Cardiovascular Cardiovascular exam: Present: normal rhythm, tachycardia - Abdominal Exam Abdominal exam: Present: soft, tenderness (Patient has tenderness of the suprapubic region. No guarding. No peritoneal signs. Normal bowel sounds.) - Extremities Exam Extremities exam: Present: normal inspection - Back Exam Back exam: Present: normal inspection - Neurological Exam Neurological exam: Present: alert, oriented X3 - Psychiatric Psychiatric exam: Present: normal affect, normal mood - Skin Skin exam: Present: warm, dry, intact Course Vital Signs Temperature 102.3 F H 11/16/17 17:52 Pulse Rate 123 11/16/17 17:52 Respiratory Rate 18 11/16/17 17:52 Blood Pressure 168/80 11/16/17 17:52 O2 Sat by Pulse Oximetry 97 11/16/17 17:52 Temperature 102.3 F H 11/16/17 17:52 Pulse Rate 123 11/16/17 17:52 Respiratory Rate 18 11/16/17 17:52 Blood Pressure 168/80 11/16/17 17:52 O2 Sat by Pulse Oximetry 97 11/16/17 17:52 Oxygen Delivery Oxygen Delivery Nasal Cannula Medical Decision Making - MDM Narrative Medical decision making narrative: pt found to have UTI, elevated wbc count of 18K with left shift. concerns for SIRS criteria. normal lactate. blood cultures ordered. IV fluids ordered. will start her on ertapenem due to old sensitivities. admit. spoke with dr monroy who accepted the patient to her service. tylenol for fever. - Medical Records Medical records reviewed: Yes I reviewed the patient's medical records. - Lab Data Lab results reviewed: Yes I reviewed the patient's lab results. Result diagrams: 11/16/17 19:03 11/16/17 19:03 Lab Results 11/16/17 11/16/17 11/16/17 Range/Units 19:03 19:03 19:03 WBC 18.1 H (4.3-11.1) K/mcL RBC 4.19 (3.82-4.97) M/mcL Hgb 10.6 L (11.5-15.4) g/dL Hct 35.2 L (35.3-44.9) % MCV 84.0 (83.0-100.0) fL MCH 25.3 L (28.0-33.3) pg MCHC 30.1 L (31.6-35.5) g/dL RDW 16.9 H (11.5-14.5) % Plt Count 293 (140-400) K/mcL MPV 9.9 (9.4-12.4) fL Immature Gran % 0.7 (0-4) % Seg Neutrophils % 86.6 % Lymphocytes % 7.8 % Monocytes % 4.5 % Eosinophils % 0.1 % Basophils % 0.3 % Neutrophils # 15.7 H (1.6-8.9) K/mcL Lymphocytes # 1.4 (0.6-4.6) K/mcL Monocytes # 0.8 (0.0-1.3) K/mcL Eosinophils # 0.0 (0.0-0.6) K/mcL Basophils # 0.1 (0.0-0.2) K/mcL Sodium 137 (136-145) mEq/L Potassium 3.7 (3.5-5.1) mEq/L Chloride 107 (98-107) mEq/L Carbon Dioxide 21 L (23-29) mEq/L BUN 39 H (6-20) mg/dL Creatinine 0.95 (0.60-1.20) mg/dL Est GFR ( Amer) > 60 (> 60) Est GFR (Non-Af Amer) > 60 (> 60) BUN/Creatinine Ratio 41 H (6-26) Glucose 168 H (70-105) mg/dL Calculated Osmolality 297 (280-300) Lactic Acid 1.1 (0.5-2.2) mmol/L Calcium 9.0 (8.6-10.3) mg/dL Urine Color (Yellow) Urine Clarity (Clear) Urine pH (5.0-8.0) pH Units Ur Specific [place] (1.010-1.025) Urine Protein (Neg-Trace) mg/dL Urine Glucose (UA) (Normal) mg/dL Urine Ketones (Negative) mg/dL Urine Blood (Negative) Urine Nitrite (Negative) Urine Bilirubin (Negative) Urine Urobilinogen (Normal) mg/dL Ur Leukocyte Esterase (Negative) Urine Microscopic RBC (0-3) per hpf Urine Microscopic WBC (0-3) per hpf Ur Squamous Epith Cells (None-Few) per lpf Urine Bacteria (None-Few) per hpf Hyaline Casts (None-Few) per lpf Ur Culture Indicated? (NO) 11/16/17 Range/Units 19:17 WBC (4.3-11.1) K/mcL RBC (3.82-4.97) M/mcL Hgb (11.5-15.4) g/dL Hct (35.3-44.9) % MCV (83.0-100.0) fL MCH (28.0-33.3) pg MCHC (31.6-35.5) g/dL RDW (11.5-14.5) % Plt Count (140-400) K/mcL MPV (9.4-12.4) fL Immature Gran % (0-4) % Seg Neutrophils % % Lymphocytes % % Monocytes % % Eosinophils % % Basophils % % Neutrophils # (1.6-8.9) K/mcL Lymphocytes # (0.6-4.6) K/mcL Monocytes # (0.0-1.3) K/mcL Eosinophils # (0.0-0.6) K/mcL Basophils # (0.0-0.2) K/mcL Sodium (136-145) mEq/L Potassium (3.5-5.1) mEq/L Chloride (98-107) mEq/L Carbon Dioxide (23-29) mEq/L BUN (6-20) mg/dL Creatinine (0.60-1.20) mg/dL Est GFR ( Amer) (> 60) Est GFR (Non-Af Amer) (> 60) BUN/Creatinine Ratio (6-26) Glucose (70-105) mg/dL Calculated Osmolality (280-300) Lactic Acid (0.5-2.2) mmol/L Calcium (8.6-10.3) mg/dL Urine Color Yellow (Yellow) Urine Clarity Cloudy A (Clear) Urine pH 6.5 (5.0-8.0) pH Units Ur Specific [place] 1.012 (1.010-1.025) Urine Protein 30 H (Neg-Trace) mg/dL Urine Glucose (UA) Normal (Normal) mg/dL Urine Ketones Negative (Negative) mg/dL Urine Blood Large H (Negative) Urine Nitrite Negative (Negative) Urine Bilirubin Negative (Negative) Urine Urobilinogen Normal (Normal) mg/dL Ur Leukocyte Esterase Large H (Negative) Urine Microscopic RBC 5-15 H (0-3) per hpf Urine Microscopic WBC TNTC H (0-3) per hpf Ur Squamous Epith Cells Many H (None-Few) per lpf Urine Bacteria Many H (None-Few) per hpf Hyaline Casts None Seen (None-Few) per lpf Ur Culture Indicated? NO. A (NO)
[2017-11-16] MEDS ORDERED: Isovue-370 500 ML INFUS..BTL IV ONE (20:40)
[2017-11-16] MEDS ORDERED: Naloxone 0.4 MG/ML INJ IVP PRN (20:42)
[2017-11-16] MEDS ORDERED: D5% in Water 1,000 ML IVC PRN (20:45)
[2017-11-16] MEDS ORDERED: Dextrose Gel 15 GM/37.5 ML TUBE PO PRN ×2 (20:45)
[2017-11-16] MEDS ORDERED: *HR* Dextrose 50 % in Water (Syg) 50 ML SYRINGE IVP PRN (20:45)
[2017-11-16] MEDS ORDERED: Lidocaine Jelly 2% 30 ML JEL..ML. TP PRN (21:14)
[2017-11-16] MEDS ORDERED: Bisacodyl 10 MG RECTAL SUPPOSITORY RC PRN (21:14)
--- NOTE | 2017-11-16 21:25 | Internal Med History&Physical ---
Date of Encounter: 11/16/17 Time of Encounter: 20:46 Internal Medicine - H&P: HPI Chief complaint: fever, dysuria Admitted From: Home Plans for Post Hospital Care: Home History of present illness: Ms. Mitchell is a 52 year old female with PMH of spina bifida, CAD, HTN, DM, recurrent UTIs who presented to the ER for persistent fevers, nausea, vomiting, and dysuria. Pt is AAO x 3 and lives alone, states she has nursing help throughout the day and self catheterizes every 6 hours at home. She reports of being familiar with symptoms associated with the UTI, and has been having dysuria for the last few days. She reports of having high fevers which prompted her visit to the ER. She has history of E.coli ESBL. She received Ertapenem in the ER along with tylenol. She reports of improvement in her symptoms after initial ER management. Denies chest pain, sob, abd pain, n/v at this time. Pt wishes to be full code Elects her brother Alex Mitchell as her POA: [phone] Past Med Surg Social Fam HX - Past Medical History Medical history: diabetes, GERD, hyperlipidemia, hypertension, myocardial infarction, other Psychiatric history: anxiety, depression, other - Past Surgical History Surgical History: angioplasty/stent, appendectomy, cholecystectomy, other - Social History Smoking Status: Never smoker Smokeless Tobacco Status: No Alcohol use: none Drug use: none - Family History Mother Adopted: No Family Member Ethnicity: Non- Living Status: Still Living Hx Family Cardiac Disorders: Yes (angina heart failure) Hx Family Respiratory Disorders: No Hx Family Cancer: No Hx Family GI Disorders: No Hx Family Endocrine Disorder: No Hx Family Neuromuscular Disorders: No Hx Family Neurologic Disorders: No Hx Family HEENT Disorders: No Hx Family Autoimmune Disorders: No Internal Medicine - H&P: Meds Aripiprazole [Abilify] 15 mg PO DAILY 05/14/15 [History] Aspirin Enteric Coated [Aspirin EC] 81 mg PO DAILY 05/14/15 [History] Metoclopramide [Reglan] 5 mg PO QID 05/14/15 [History] Verapamil [Isoptin] 80 mg PO DAILY 05/14/15 [History] Omeprazole [PriLOSEC] 20 mg PO BID #0 07/03/15 [History] ALPRAZolam [Xanax 0.5 MG Tablet] 0.5 mg PO HS 01/26/16 [History] Acetaminophen [Tylenol] 650 mg PO Q6HR PRN 01/26/16 [History] Bisacodyl [Dulcolax] 10 mg RC Q48H PRN 01/26/16 [History] Cholecalciferol (D-3) [Vitamin D] 1,000 unit PO DAILY 01/26/16 [History] Lidocaine HCl [Aspercreme] 1 appl TP TID PRN 01/26/16 [History] Multivitamin [Zoo Chews] 1 each PO DAILY 01/26/16 [History] Nystatin POWDER [Nystop] 1 appl TP BID 01/26/16 [History] Polyethylene Glycol 3350 [MiraLAX] 17 gm PO DAILY PRN 01/26/16 [History] Pravastatin Sodium [Pravachol] 20 mg PO HS 01/26/16 [History] metFORMIN [Glucophage] 500 mg PO QPM 01/26/16 [History] Oxybutynin Chloride [Ditropan Xl] 10 mg PO DAILY 03/02/17 [History] Lactobacillus Acidophilus [Acidophilus Probiotic] 2 mg PO BID #20 03/08/17 [Rx] Fluconazole [Diflucan] 150 mg PO QWEEK 11/16/17 [History] Lisinopril-HCTZ 10-12.5 [Prinzide 10-12.5] 1 tab PO DAILY 11/16/17 [History] 3 Allergy/AdvReac Type Severity Reaction Status Date / Time alcohol Allergy Rash Verified 09/20/16 12:49 Amoxicillin [From Augmentin] Allergy Rash Verified 09/20/16 12:49 caffeine [From Cafergot] Allergy Rash Verified 09/20/16 12:49 cephalexin Allergy Rash Verified 09/20/16 15:54 clarithromycin [From Biaxin] Allergy Rash Verified 09/20/16 12:49 clavulanic acid Allergy Rash Verified 09/20/16 12:49 [From Augmentin] doxycycline Allergy Rash Verified 09/20/16 12:49 Ergotamine [From Cafergot] Allergy Rash Verified 09/20/16 12:49 nitrofurantoin Allergy Rash Verified 09/20/16 12:49 [From Macrodantin] Oxycodone [From Percocet] Allergy Rash Verified 09/20/16 12:49 Sulfa (Sulfonamide Allergy Rash Verified 09/20/16 12:49 Antibiotics) sulfabenzamide Allergy Rash Verified 09/20/16 12:49 Hydromorphone [From Dilaudid] AdvReac Headache Verified 09/20/16 12:49 morphine AdvReac Headache Verified 09/20/16 12:49 All Systems PM: A 10-system review of systems was performed and is negative for pertinent findings except as documented above in the HPI. - Constitutional Constitutional: as per HPI - Constitutional Vitals: Temp Pulse Resp BP Pulse Ox 102.3 F H 123 18 168/80 97 11/16/17 17:52 11/16/17 17:52 11/16/17 17:52 11/16/17 17:52 11/16/17 17:52 General appearance: Present: cooperative, A&O X 3, morbidly obese, no acute distress, answers questions appropriately - Head Head exam: Present: atraumatic, normocephalic - Eye Eye exam: Present: EOMI, normal appearance - Respiratory Respiratory exam: Present: CTAB. Absent: respiratory distress, wheezes - Cardiovascular Cardiovascular exam: Present: +S1, +S2, tachycardia - GI/Abdominal GI/Abdominal exam: Present: normal bowel sounds, soft, no peritoneal signs. Absent: distended, tenderness - Extremities Exam Extremities exam: Present: warm, radial pulses palpable and symmetrical. Absent : calf tenderness, tenderness - Back Exam Back exam: Absent: CVA tenderness (L), CVA tenderness (R) - Neurological Exam Neurological exam: Present: oriented X3 - Psychiatric Psychiatric exam: Present: normal affect, normal mood Internal Med - H&P Results - Labs CBC & Chem 7: 11/16/17 19:03 11/16/17 19:03 Labs: Short CBC 11/16/17 Range/Units 19:03 WBC 18.1 H (4.3-11.1) K/mcL Hgb 10.6 L (11.5-15.4) g/dL Hct 35.2 L (35.3-44.9) % Plt Count 293 (140-400) K/mcL Neutrophils # 15.7 H (1.6-8.9) K/mcL BMP 11/16/17 19:03 Sodium 137 Potassium 3.7 Chloride 107 Carbon Dioxide 21 L BUN 39 H Creatinine 0.95 Glucose 168 H Calcium 9.0 Urine /16/ Range/Units 19:17 Urine Color Yellow (Yellow) Urine Clarity Cloudy A (Clear) Urine pH 6.5 (5.0-8.0) pH Units Ur Specific [place] 1.012 (1.010-1.025) Urine Protein 30 H (Neg-Trace) mg/dL Urine Glucose (UA) Normal (Normal) mg/dL - Assessment and plan (1) Sepsis Current Visit: Yes Status: Acute Assessment and plan: Likely secondary to UTI history of E.Coli ESBL UTI and was treated with IV Ertapenem for ten days in February 2017 Will start Ertapenem at this time f/u blood and urine cultures Kong support IV fluids Tylenol prn fever Qualifiers: Sepsis type: sepsis due to unspecified organism Qualified Code(s): A41.9 - Sepsis, unspecified organism (2) UTI (urinary tract infection) Current Visit: Yes Status: Acute Assessment and plan: history of recurrent UTIs and reported history of self-catheterization continue IV abx as listed above de-escalate abx therapy as per urine culture results Qualifiers: Urinary tract infection type: acute cystitis Hematuria presence: without hematuria Qualified Code(s): N30.00 - Acute cystitis without hematuria (3) Anemia Current Visit: No Status: Chronic Assessment and plan: H&H low but acceptable no acute bleeding reported at this time however pt reported of having history of hemorrhoids will continue to closely monitor H&H Qualifiers: Anemia type: iron deficiency Iron deficiency anemia type: other iron deficiency Qualified Code(s): D50.8 - Other iron deficiency anemias (4) Diabetes Current Visit: No Status: Chronic Assessment and plan: Pt reports of not taking Metformin for the last three months last HbA1C in Jun 2016 was 5.7 will repeat HbA1C in am sliding scale insulin algorithm at this time monitor FS and BG ADA diet if HbA1C consistent with prior lab findings, consider discontinuing insulin ss and ADA diet Qualifiers: Diabetes mellitus type: type 2 Diabetes mellitus termite helper insulin use: without residential use Diabetes mellitus complication status: with hyperglycemia Qualified Code(s): E11.65 - Type 2 diabetes mellitus with hyperglycemia (5) GERD (gastroesophageal reflux disease) Current Visit: No Status: Chronic Assessment and plan: continue home meds Qualifiers: Esophagitis presence: without esophagitis Qualified Code(s): K21.9 - Gastro -esophageal reflux disease without esophagitis (6) HTN (hypertension) Current Visit: No Status: Chronic Assessment and plan: Noted to be hypertensive in the ER, in the setting of sepsis clinically asymptomatic will resume home meds Hydralazine 10MG IV q6h PRN SBP>160 will closely monitor BP Qualifiers: Hypertension type: essential hypertension Qualified Code(s): I10 - Essential (primary) hypertension (7) History of spina bifida Current Visit: No Status: Chronic (8) Morbid obesity Current Visit: Yes Status: Chronic (9) DVT prophylaxis Current Visit: No Status: Acute Assessment and plan: Heparin SQ - Time Spent With Patient Total time spent is greater than 50% in coordination of care (as documented) at patient's floor/unit and/or counseling patient:
[2017-11-16] MEDS: Ertapenem 1,000 MG in 0.9 % Sodium Chloride Mini Bag 100 ML IVPB SCH (21:31)
[2017-11-16] MEDS: 0.9 % Sodium Chloride 1,000 ML IVC SCH (23:38)
[2017-11-16] MEDS: Insulin LISPRO 300 UNITS/3 ML VIAL SQ SCH (23:38)
[2017-11-16] MEDS: *HR* Heparin 5,000 UNIT/ML VIAL SQ SCH (23:38)
[2017-11-17 04:38] LABS: Basophils % 0.1 %; Eosinophils % 0.1 %; Hematocrit 30.3 % (35.3-44.9); Hemoglobin 9.3 g/dL (11.5-15.4); Immature Granulocytes % 0.7 % (0-4); Lymphocytes # 2.2 K/mcL (0.6-4.6); Lymphocytes % 16.1 %; Mean Corpuscular HGB Conc 30.7 g/dL (31.6-35.5); Mean Corpuscular Hemoglobin 26.1 pg (28.0-33.3); Mean Corpuscular Volume 85.1 fL (83.0-100.0); Monocytes # 1.2 K/mcL (0.0-1.3); Monocytes % 8.5 %; Neutrophils # 10.3 K/mcL (1.6-8.9); Nucleated Red Blood Cells 0.7 /100 WBC (0); Platelet Count 239 K/mcL (140-400); Red Blood Count 3.56 M/mcL (3.82-4.97); Red Cell Distribution Width 16.8 % (11.5-14.5); Segmented Neutrophils % 74.5 %
[2017-11-17 04:55] LABS: BUN/Creatinine Ratio 37 (6-26); Blood Urea Nitrogen 29 mg/dL (6-20); Calcium 8.2 mg/dL (8.6-10.3); Carbon Dioxide 20 mEq/L (23-29); Chloride 111 mEq/L (98-107); Glucose 137 mg/dL (70-105); Magnesium 1.9 mg/dL (1.6-2.6); Osmolality,Calculated 294 (280-300); Phosphorous 3.2 mg/dL (2.7-4.5); Potassium 3.7 mEq/L (3.5-5.1); Sodium 138 mEq/L (136-145); eGFR For African Americans > 60 (> 60); eGFR For Non-African Americans > 60 (> 60)
[2017-11-17] MEDS: *HR* Heparin 5,000 UNIT/ML VIAL SQ SCH ×2 (05:34→17:53)
[2017-11-17] MEDS ORDERED: Ondansetron 4 MG/2 ML VIAL IVP PRN (06:17)
[2017-11-17] MEDS: Insulin LISPRO 300 UNITS/3 ML VIAL SQ SCH ×4 (08:30→21:32)
[2017-11-17] MEDS: Lactobacillus 1 EACH CAP.SPRINK PO SCH ×2 (08:31→20:53)
[2017-11-17] MEDS: Aspirin Enteric Coated 81 MG Tablet PO SCH (08:31)
[2017-11-17] MEDS: Nystatin POWDER 30 GM BOTTLE TP SCH ×2 (08:31→21:32)
[2017-11-17] MEDS: ARIPiprazole 10 MG TABLET PO SCH (08:31)
[2017-11-17] MEDS: Cholecalciferol (D-3) 1,000 UNIT TABLET PO SCH (08:31)
[2017-11-17] MEDS: Multivit/Ca/Min/Fe/FA 1 TAB TABLET PO SCH (08:31)
--- NOTE | 2017-11-17 10:15 | Internal Med Progress Note ---
<Mario Brewer - Last Filed: 11/17/17 16:27> Date of Encounter: 11/17/17 Time of Encounter: 08:55 - Assessment and plan (1) Sepsis Current Visit: Yes Status: Acute Assessment and plan: Likely secondary to UTI history of E.Coli ESBL UTI and was treated with IV Ertapenem for ten days in February 2017 Lactic acid 1.1 Patient received IV fluids and presentation/impression Ertapenem started on 11/16/17 Day 1 f/u blood and urine cultures Kong support Tylenol prn fever Qualifiers: Sepsis type: sepsis due to unspecified organism Qualified Code(s): A41.9 - Sepsis, unspecified organism (2) Anemia Current Visit: No Status: Chronic Assessment and plan: H&H low but within normal limits for recent hemoglobin checks no acute bleeding reported at this time however pt reported of having history of hemorrhoids We will continue to monitor H&H with daily CBC Qualifiers: Anemia type: iron deficiency Iron deficiency anemia type: other iron deficiency Qualified Code(s): D50.8 - Other iron deficiency anemias (3) Diabetes Current Visit: No Status: Chronic Assessment and plan: Pt reports of not taking Metformin for the last three months last HbA1C in Jun 2016 was 5.7, repeat A1c 6.6 sliding scale insulin monitor FS and BG ADA diet Qualifiers: Diabetes mellitus type: type 2 Diabetes mellitus residential insulin use: without remote computer terminal operator use Diabetes mellitus complication status: with hyperglycemia Qualified Code(s): E11.65 - Type 2 diabetes mellitus with hyperglycemia (4) HTN (hypertension) Current Visit: No Status: Chronic Assessment and plan: Noted to be hypertensive in the ER, in the setting of sepsis clinically asymptomatic will resume home meds (lisinopril-HCTZ) will closely monitor BP Qualifiers: Hypertension type: essential hypertension Qualified Code(s): I10 - Essential (primary) hypertension (5) GERD (gastroesophageal reflux disease) Current Visit: No Status: Chronic Assessment and plan: continue home omeprazole Qualifiers: Esophagitis presence: without esophagitis Qualified Code(s): K21.9 - Gastro -esophageal reflux disease without esophagitis (6) Morbid obesity Current Visit: Yes Status: Chronic (7) History of spina bifida Current Visit: No Status: Chronic (8) DVT prophylaxis Current Visit: No Status: Acute Assessment and plan: 5000 units heparin subcutaneous twice a day (9) UTI (urinary tract infection) Current Visit: Yes Status: Acute Assessment and plan: History of recurrent UTIs with ESBL Escherichia coli Reported history of self-catheterization Continue IV abx as above de-escalate abx therapy as per urine culture results Qualifiers: Urinary tract infection type: acute cystitis Hematuria presence: without hematuria Qualified Code(s): N30.00 - Acute cystitis without hematuria - Time Spent With Patient Total time spent is greater than 50% in coordination of care (as documented) at patient's floor/unit and/or counseling patient: - Subjective Interval history: Patient reports having continued mild fevers/chills. She reports continued dysuria eith dark, cloudy urine. She denies hematuria. She reports that she has some minor abdominal pain. She denies nausea/vomiting, denies chest pain. - Constitutional Vitals: Temp Pulse Resp BP Pulse Ox 98.4 F 95 18 152/83 91 11/17/17 07:09 11/17/17 07:09 11/17/17 07:09 11/17/17 07:09 11/17/17 07:09 General appearance: Present: cooperative, A&O X 3, morbidly obese, no acute distress, answers questions appropriately Exam: General: Cooperative, pleasant, no acute distress, alert and oriented 3, answers questions appropriately, flat affect HEENT: Normocephalic, atraumatic, nConjunctiva pink, sclera anicteric, oral mucosa moist Respiratory: No accessory muscle usage, clear to auscultation bilaterally, no wheezes/rhonchi/rales appreciated Cardiovascular: Regular rate and rhythm, S1 and S2 present, no murmurs/rubs/ gallops/clicks appreciated GI/abdominal: Nondistended, mild tenderness in the lower abdomen, soft, normal bowel sounds, no peritoneal signs Extremities: No calf tenderness, no pedal edema appreciated, warm, lower extremity pulses palpable and symmetrical Neurological: Alert and oriented 3, no facial droop, no focal deficits Skin: Diaphoretic, intact, normal color Internal Medicine: Result - Labs CBC & Chem 7: 11/17/17 04:00 11/17/17 04:00 Labs: Short CBC 11/17/17 Range/Units 04:00 WBC 13.8 H (4.3-11.1) K/mcL Hgb 9.3 L (11.5-15.4) g/dL Hct 30.3 L (35.3-44.9) % Plt Count 239 (140-400) K/mcL Neutrophils # 10.3 H (1.6-8.9) K/mcL BMP 11/17/17 04:00 Sodium 138 Potassium 3.7 Chloride 111 H Carbon Dioxide 20 L BUN 29 H Creatinine 0.79 Glucose 137 H Calcium 8.2 L Consult Discharge Plan - Plan Referrals: Lorena Velazquez MD [Primary Care Provider] - <Meek Coronado - Last Filed: 11/17/17 18:57> Date of Encounter: 11/17/17 - Assessment and plan (1) Sepsis Current Visit: Yes Status: Suspected Qualifiers: Sepsis type: Escherichia coli Qualified Code(s): A41.51 - Sepsis due to Escherichia coli [E. coli] (2) UTI (urinary tract infection) Current Visit: Yes Status: Acute Qualifiers: Urinary tract infection type: acute cystitis Hematuria presence: without hematuria Qualified Code(s): N30.00 - Acute cystitis without hematuria (3) History of spina bifida Current Visit: No Status: Chronic (4) Diabetes Current Visit: No Status: Chronic Qualifiers: Diabetes mellitus type: type 2 Diabetes mellitus residential insulin use: without residential use Diabetes mellitus complication status: with hyperglycemia Qualified Code(s): E11.65 - Type 2 diabetes mellitus with hyperglycemia (5) HTN (hypertension) Current Visit: No Status: Chronic Qualifiers: Hypertension type: essential hypertension Qualified Code(s): I10 - Essential (primary) hypertension (6) GERD (gastroesophageal reflux disease) Current Visit: No Status: Chronic Qualifiers: Esophagitis presence: without esophagitis Qualified Code(s): K21.9 - Gastro -esophageal reflux disease without esophagitis (7) DVT prophylaxis Current Visit: No Status: Acute (8) Anemia Current Visit: No Status: Chronic Qualifiers: Anemia type: iron deficiency Iron deficiency anemia type: other iron deficiency Qualified Code(s): D50.8 - Other iron deficiency anemias (9) Morbid obesity Current Visit: Yes Status: Chronic - Time Spent With Patient Total time spent is greater than 50% in coordination of care (as documented) at patient's floor/unit and/or counseling patient: - Constitutional Vitals: Temp Pulse Resp BP Pulse Ox 99.2 F 79 15 112/58 93 11/17/17 15:31 11/17/17 15:31 11/17/17 15:31 11/17/17 15:31 11/17/17 18:02 Internal Medicine: Result - Labs CBC & Chem 7: 11/17/17 04:00 11/17/17 04:00 Labs: Short CBC 11/17/17 Range/Units 04:00 WBC 13.8 H (4.3-11.1) K/mcL Hgb 9.3 L (11.5-15.4) g/dL Hct 30.3 L (35.3-44.9) % Plt Count 239 (140-400) K/mcL Neutrophils # 10.3 H (1.6-8.9) K/mcL BMP 11/17/17 04:00 Sodium 138 Potassium 3.7 Chloride 111 H Carbon Dioxide 20 L BUN 29 H Creatinine 0.79 Glucose 137 H Calcium 8.2 L - Attending Attestation I examined this patient and my medical decision-making was reviewed with the Resident Physician on 11/17/17. I agree with the documented findings, disposition and treatment plan as described except to the extent set forth below. Ms Mitchell is currently admitted for sepsis related to UTI. She remains moderate to high risk due to potential for worsening clinical status. Ms Mitchell is doing OK. No fever or chills. No GI issues. Tolerating abx. Exam alert Comfortable Mucus membranes dry Heart not tachy No wheeze or rales I/P 1. Sepsis 2. UTI - hx of ESBL. On Ertapenem. Further diagnoses and plan as above.
[2017-11-17 10:26] LABS: Estimated Average Glucose 143 mg/dl; Hemoglobin A1C 6.6 %
[2017-11-17] MEDS: 0.9 % Sodium Chloride 1,000 ML IVC SCH (12:34)
[2017-11-17] MEDS: ALPRAZolam 0.5 MG TABLET PO SCH (20:52)
[2017-11-17] MEDS: Ertapenem 1,000 MG in 0.9 % Sodium Chloride Mini Bag 100 ML IVPB SCH (20:53)
[2017-11-17] MEDS: Acetaminophen 325 MG TABLET PO PRN (21:31)
[2017-11-18 05:15] LABS: Basophils % 0.4 %; Eosinophils # 0.1 K/mcL (0.0-0.6); Eosinophils % 0.7 %; Hematocrit 27.4 % (35.3-44.9); Hemoglobin 8.2 g/dL (11.5-15.4); Immature Granulocytes % 0.5 % (0-4); Lymphocytes # 3.1 K/mcL (0.6-4.6); Lymphocytes % 30.2 %; Mean Corpuscular HGB Conc 29.9 g/dL (31.6-35.5); Mean Corpuscular Hemoglobin 25.2 pg (28.0-33.3); Mean Corpuscular Volume 84.3 fL (83.0-100.0); Monocytes # 0.8 K/mcL (0.0-1.3); Monocytes % 7.9 %; Neutrophils # 6.1 K/mcL (1.6-8.9); Platelet Count 237 K/mcL (140-400); Red Blood Count 3.25 M/mcL (3.82-4.97); Red Cell Distribution Width 17.1 % (11.5-14.5); Segmented Neutrophils % 60.3 %
[2017-11-18 05:17] LABS: BUN/Creatinine Ratio 29 (6-26); Blood Urea Nitrogen 21 mg/dL (6-20); Calcium 8.7 mg/dL (8.6-10.3); Carbon Dioxide 22 mEq/L (23-29); Chloride 111 mEq/L (98-107); Glucose 145 mg/dL (70-105); Osmolality,Calculated 298 (280-300); Potassium 3.6 mEq/L (3.5-5.1); Sodium 141 mEq/L (136-145); eGFR For African Americans > 60 (> 60); eGFR For Non-African Americans > 60 (> 60)
[2017-11-18] MEDS: *HR* Heparin 5,000 UNIT/ML VIAL SQ SCH ×2 (06:31→16:19)
--- NOTE | 2017-11-18 08:45 | Internal Med Progress Note ---
<SamanthagerardoClark juárez - Last Filed: 11/18/17 15:28> Date of Encounter: 11/18/17 Time of Encounter: 08:45 - Assessment and plan (1) Sepsis Current Visit: Yes Status: Resolved Assessment and plan: Resolved Likely secondary to UTI history of E.Coli ESBL UTI and was treated with IV Ertapenem for ten days in February 2017 Lactic acid 1.1 Patient received IV fluids and presentation/impression Ertapenem started on 11/16/17 Day 2 f/u blood and urine cultures Kong support Tylenol prn fever Qualifiers: Sepsis type: Escherichia coli Qualified Code(s): A41.51 - Sepsis due to Escherichia coli [E. coli] (2) Anemia Current Visit: Yes Status: Chronic Assessment and plan: Hb 10.6, 9.3, 8.2 No additional fluids running. Hb drop of uncertain etiology, stools brown and yellow per notes. -Hemoccult ordered. We will continue to monitor H&H with daily CBC, if Hb < 7 consider transfusion. Qualifiers: Anemia type: iron deficiency Iron deficiency anemia type: other iron deficiency Qualified Code(s): D50.8 - Other iron deficiency anemias (3) History of spina bifida Current Visit: Yes Status: Chronic (4) HTN (hypertension) Current Visit: Yes Status: Chronic Assessment and plan: Noted to be hypertensive in the ER, in the setting of sepsis clinically asymptomatic will continue home meds (lisinopril-HCTZ) will closely monitor BP Qualifiers: Hypertension type: essential hypertension Qualified Code(s): I10 - Essential (primary) hypertension (5) GERD (gastroesophageal reflux disease) Current Visit: No Status: Chronic Assessment and plan: continue home omeprazole Qualifiers: Esophagitis presence: without esophagitis Qualified Code(s): K21.9 - Gastro -esophageal reflux disease without esophagitis (6) DVT prophylaxis Current Visit: No Status: Acute Assessment and plan: 5000 units heparin subcutaneous twice a day (7) UTI (urinary tract infection) Current Visit: Yes Status: Acute Assessment and plan: History of recurrent UTIs with ESBL Escherichia coli Reported history of self-catheterization Continue IV abx Ertapenem q24h (d2) Urine culture gram negative, prelim. de-escalate abx therapy as per urine culture results Qualifiers: Urinary tract infection type: acute cystitis Hematuria presence: without hematuria Qualified Code(s): N30.00 - Acute cystitis without hematuria - Time Spent With Patient Total time spent is greater than 50% in coordination of care (as documented) at patient's floor/unit and/or counseling patient: - Subjective Interval history: Ms. Mitchell reports having no urinary symptoms this morning. Has complaints of headache. Denies increased sleepiness or fatigue. Patient denies fevers, chills, sweats, nausea, vomiting, chest pain, shortness of breath, abdominal pain, diarrhea, new weakness, or new loss of sensation. Hb trending downward 10.6, 9.3, 8.2 ordered hemoccult - Constitutional Vitals: Temp Pulse Resp BP Pulse Ox 97.5 F L 66 18 114/61 98 11/18/17 07:06 11/18/17 07:06 11/18/17 07:06 11/18/17 07:06 11/18/17 07:15 General appearance: Present: A&O X 3, morbidly obese, no acute distress, answers questions appropriately - Head Head exam: Present: atraumatic, normal inspection, normocephalic - Eye Eye exam: Present: EOMI, normal appearance - ENT ENT exam: Present: mucous membranes moist - Neck Neck exam general surgery: Present: supple, trachea midline - Respiratory Respiratory exam: Present: CTAB. Absent: rales, rhonchi, wheezes - Cardiovascular Cardiovascular exam: Present: RRR, +S1, +S2 - GI/Abdominal GI/Abdominal exam: Present: normal bowel sounds, soft. Absent: tenderness - Extremities Exam Extremities exam: Present: normal inspection, warm, radial pulses palpable and symmetrical. Absent: pedal edema, tenderness Additional comments: decreased rom with decreased effort, baseline. - Skin Skin exam: Present: dry, intact, normal color, warm Internal Medicine: Result - Labs CBC & Chem 7: 11/18/17 12:36 11/18/17 04:30 Labs: Short CBC 11/18/17 Range/Units 04:30 WBC 10.2 (4.3-11.1) K/mcL Hgb 8.2 L (11.5-15.4) g/dL Hct 27.4 L (35.3-44.9) % Plt Count 237 (140-400) K/mcL Neutrophils # 6.1 (1.6-8.9) K/mcL BMP 05/18/18 04:30 Sodium 141 Potassium 3.6 Chloride 111 H Carbon Dioxide 22 L BUN 21 H Creatinine 0.72 Glucose 145 H Calcium 8.7 Consult Discharge Plan - Plan Referrals: Lorena Velazquez MD [Primary Care Provider] - <Meek Coronado - Last Filed: 11/18/17 17:07> Date of Encounter: 11/18/17 - Assessment and plan (1) Sepsis Current Visit: Yes Status: Resolved Qualifiers: Sepsis type: Escherichia coli Qualified Code(s): A41.51 - Sepsis due to Escherichia coli [E. coli] (2) UTI (urinary tract infection) Current Visit: Yes Status: Acute Qualifiers: Urinary tract infection type: acute cystitis Hematuria presence: without hematuria Qualified Code(s): N30.00 - Acute cystitis without hematuria (3) Anemia Current Visit: Yes Status: Chronic Qualifiers: Anemia type: iron deficiency Iron deficiency anemia type: other iron deficiency Qualified Code(s): D50.8 - Other iron deficiency anemias (4) HTN (hypertension) Current Visit: Yes Status: Chronic Qualifiers: Hypertension type: essential hypertension Qualified Code(s): I10 - Essential (primary) hypertension (5) History of spina bifida Current Visit: Yes Status: Chronic (6) GERD (gastroesophageal reflux disease) Current Visit: No Status: Chronic Qualifiers: Esophagitis presence: without esophagitis Qualified Code(s): K21.9 - Gastro -esophageal reflux disease without esophagitis (7) DVT prophylaxis Current Visit: No Status: Acute - Time Spent With Patient Total time spent is greater than 50% in coordination of care (as documented) at patient's floor/unit and/or counseling patient: - Constitutional Vitals: Temp Pulse Resp BP Pulse Ox 97.8 F 72 18 152/81 95 11/18/17 16:50 11/18/17 16:50 11/18/17 16:50 11/18/17 16:50 11/18/17 16:50 Internal Medicine: Result - Labs CBC & Chem 7: 11/18/17 12:36 11/18/17 04:30 Labs: Short CBC 11/18/17 11/18/17 Range/Units 04:30 12:36 WBC 10.2 (4.3-11.1) K/mcL Hgb 8.2 L 9.8 L D (11.5-15.4) g/dL Hct 27.4 L 32.0 L (35.3-44.9) % Plt Count 237 (140-400) K/mcL Neutrophils # 6.1 (1.6-8.9) K/mcL BMP 11/18/17 04:30 Sodium 141 Potassium 3.6 Chloride 111 H Carbon Dioxide 22 L BUN 21 H Creatinine 0.72 Glucose 145 H Calcium 8.7 - Attending Attestation I examined this patient and my medical decision-making was reviewed with the Resident Physician on 11/18/17. I agree with the documented findings, disposition and treatment plan as described except to the extent set forth below. Ms Mitchell is currently admitted for recurrent UTI. She has hx of resistant organism. She remains moderate to high risk due to potential for worsening clinical status. Ms Mitchell has no new issues. She is tolerating IV abx. No fever or chills. No cough. Working on arranging IV abx for home. Exam alert Comfortable Mucus membranes dry Heart reg Lungs diminished Abd soft I/P 1. Sepsis resolved 2. UTI Further diagnoses and plan as above Anticipate d/c tomorrow.
[2017-11-18] MEDS: Insulin LISPRO 300 UNITS/3 ML VIAL SQ SCH ×4 (09:00→22:12)
[2017-11-18] MEDS: Aspirin Enteric Coated 81 MG Tablet PO SCH (09:00)
[2017-11-18] MEDS: Multivit/Ca/Min/Fe/FA 1 TAB TABLET PO SCH (09:01)
[2017-11-18] MEDS: ARIPiprazole 10 MG TABLET PO SCH (09:01)
[2017-11-18] MEDS: Nystatin POWDER 30 GM BOTTLE TP SCH ×2 (09:02→22:13)
[2017-11-18] MEDS: Lactobacillus 1 EACH CAP.SPRINK PO SCH ×2 (09:02→22:08)
[2017-11-18] MEDS: Cholecalciferol (D-3) 1,000 UNIT TABLET PO SCH (09:02)
--- NOTE | 2017-11-18 13:12 | Physician Discharge Referral ---
ExtendedCare Referral Info Transfer To: Signature Provider in Charge: Dr. Coronado Provider in Charge after Transfer: PCP Institutional Level of Care: Skilled - Diagnosis (1) History of spina bifida Priority: Secondary Status: Chronic (2) Diabetes Priority: Secondary Status: Chronic (3) HTN (hypertension) Priority: Secondary Status: Chronic (4) GERD (gastroesophageal reflux disease) Priority: Secondary Status: Chronic (5) Anemia Priority: Secondary Status: Chronic (6) Sepsis Priority: Secondary Status: Suspected (7) Morbid obesity Priority: Secondary Status: Chronic (8) UTI (urinary tract infection) Priority: Primary Status: Acute - Transfer Medications Home Medications: Aripiprazole [Abilify] 15 mg PO DAILY 05/14/15 [History] Aspirin Enteric Coated [Aspirin EC] 81 mg PO DAILY 05/14/15 [History] Metoclopramide [Reglan] 5 mg PO QID 05/14/15 [History] Verapamil [Isoptin] 80 mg PO DAILY 05/14/15 [History] Omeprazole [PriLOSEC] 20 mg PO BID #0 07/03/15 [History] ALPRAZolam [Xanax 0.5 MG Tablet] 0.5 mg PO HS 01/26/16 [History] Acetaminophen [Tylenol] 650 mg PO Q6HR PRN 01/26/16 [History] Bisacodyl [Dulcolax] 10 mg RC Q48H PRN 01/26/16 [History] Cholecalciferol (D-3) [Vitamin D] 1,000 unit PO DAILY 01/26/16 [History] Lidocaine HCl [Aspercreme] 1 appl TP TID PRN 01/26/16 [History] Multivitamin [Zoo Chews] 1 each PO DAILY 01/26/16 [History] Nystatin POWDER [Nystop] 1 appl TP BID 01/26/16 [History] Polyethylene Glycol 3350 [MiraLAX] 17 gm PO DAILY PRN 01/26/16 [History] Pravastatin Sodium [Pravachol] 20 mg PO HS 01/26/16 [History] metFORMIN [Glucophage] 500 mg PO QPM 01/26/16 [History] Oxybutynin Chloride [Ditropan Xl] 10 mg PO DAILY 03/02/17 [History] Lactobacillus Acidophilus [Acidophilus Probiotic] 2 mg PO BID #20 03/08/17 [Rx] Fluconazole [Diflucan] 150 mg PO QWEEK 11/16/17 [History] Lisinopril-HCTZ 10-12.5 [Prinzide 10-12.5] 1 tab PO DAILY 11/16/17 [History] Allergies/Adverse Reactions: 3 Allergy/AdvReac Type Severity Reaction Status Date / Time alcohol Allergy Rash Verified 09/20/16 12:49 Amoxicillin [From Augmentin] Allergy Rash Verified 09/20/16 12:49 caffeine [From Cafergot] Allergy Rash Verified 09/20/16 12:49 cephalexin Allergy Rash Verified 09/20/16 15:54 clarithromycin [From Biaxin] Allergy Rash Verified 09/20/16 12:49 clavulanic acid Allergy Rash Verified 09/20/16 12:49 [From Augmentin] doxycycline Allergy Rash Verified 09/20/16 12:49 Ergotamine [From Cafergot] Allergy Rash Verified 09/20/16 12:49 nitrofurantoin Allergy Rash Verified 09/20/16 12:49 [From Macrodantin] Oxycodone [From Percocet] Allergy Rash Verified 09/20/16 12:49 Sulfa (Sulfonamide Allergy Rash Verified 09/20/16 12:49 Antibiotics) sulfabenzamide Allergy Rash Verified 09/20/16 12:49 Hydromorphone [From Dilaudid] AdvReac Headache Verified 09/20/16 12:49 morphine AdvReac Headache Verified 09/20/16 12:49 - Respiratory Orders Smoking Cessation: Smoking cessation has been advised. For more information, call the [place] Tobacco Quit Line at 5-187-EKYE-NOW. - Lab Orders Lab Orders: U/A - Ancillary Orders May use pressure relief devices daily prn - Mobility Orders Chair - Rehabiliation Orders Rehab Potential: Fair Rehab Orders: Sternal Precautions, ROM Exercises, Evaluation for Physical Therapy, Evaluation for Occupational Therapy - Treatments Skin tear care topically daily PRN per policy, May check for fecal impaction rectally daily PRN, Fleet enema rectally every other day PRN cleansing purposes - Diet Orders No Added Salt (TEGAN), No Concentrated Sweets, Cardiac CERTIFICATION: I certify that the transfer of the above named patient to an Extended Care Facility is necessary for the continuing treatment of the diagnosis listed. The above information is true and accurate reflection of patient's current condition. Confidential - Redisclosure prohibited without a patient's written consent.
[2017-11-18 13:17] LABS: Hemoglobin 9.8 g/dL (11.5-15.4)
--- NOTE | 2017-11-18 17:09 | Physician Discharge Referral ---
Home Health/Hosp Referral Info Transfer to: Home Health Provider in Charge Post Discharge: PCP - Diagnosis (1) Sepsis Priority: Primary Status: Resolved (2) UTI (urinary tract infection) Priority: Primary Status: Acute (3) Anemia Priority: Secondary Status: Chronic (4) HTN (hypertension) Priority: Secondary Status: Chronic (5) History of spina bifida Priority: Secondary Status: Chronic (6) GERD (gastroesophageal reflux disease) Priority: Secondary Status: Chronic - Respiratory Orders None Smoking Cessation: Smoking cessation has been advised. For more information, call the [place] Tobacco Quit Line at 6-818-OMNS-NOW. - Diet/Nutrition Diet/Nutrition Orders: No Concentrated Sweets - Activity Activity Orders: Up ad brian - Services Needed Following services are medically necessary services: Nursing, Physical Therapy, Occupational Therapy, Home Infusion - Transfer Medications Home Medications: Aripiprazole [Abilify] 15 mg PO DAILY 05/14/15 [History] Aspirin Enteric Coated [Aspirin EC] 81 mg PO DAILY 05/14/15 [History] Metoclopramide [Reglan] 5 mg PO QID 05/14/15 [History] Verapamil [Isoptin] 80 mg PO DAILY 05/14/15 [History] Omeprazole [PriLOSEC] 20 mg PO BID #0 07/03/15 [History] ALPRAZolam [Xanax 0.5 MG Tablet] 0.5 mg PO HS 01/26/16 [History] Acetaminophen [Tylenol] 650 mg PO Q6HR PRN 01/26/16 [History] Bisacodyl [Dulcolax] 10 mg RC Q48H PRN 01/26/16 [History] Cholecalciferol (D-3) [Vitamin D] 1,000 unit PO DAILY 01/26/16 [History] Lidocaine HCl [Aspercreme] 1 appl TP TID PRN 01/26/16 [History] Multivitamin [Zoo Chews] 1 each PO DAILY 01/26/16 [History] Nystatin POWDER [Nystop] 1 appl TP BID 01/26/16 [History] Polyethylene Glycol 3350 [MiraLAX] 17 gm PO DAILY PRN 01/26/16 [History] Pravastatin Sodium [Pravachol] 20 mg PO HS 01/26/16 [History] metFORMIN [Glucophage] 500 mg PO QPM 01/26/16 [History] Oxybutynin Chloride [Ditropan Xl] 10 mg PO DAILY 03/02/17 [History] Lactobacillus Acidophilus [Acidophilus Probiotic] 2 mg PO BID #20 03/08/17 [Rx] Fluconazole [Diflucan] 150 mg PO QWEEK 11/16/17 [History] Lisinopril-HCTZ 10-12.5 [Prinzide 10-12.5] 1 tab PO DAILY 11/16/17 [History] Allergies/Adverse Reactions: 3 Allergy/AdvReac Type Severity Reaction Status Date / Time alcohol Allergy Rash Verified 09/20/16 12:49 Amoxicillin [From Augmentin] Allergy Rash Verified 09/20/16 12:49 caffeine [From Cafergot] Allergy Rash Verified 09/20/16 12:49 cephalexin Allergy Rash Verified 09/20/16 15:54 clarithromycin [From Biaxin] Allergy Rash Verified 09/20/16 12:49 clavulanic acid Allergy Rash Verified 09/20/16 12:49 [From Augmentin] doxycycline Allergy Rash Verified 09/20/16 12:49 Ergotamine [From Cafergot] Allergy Rash Verified 09/20/16 12:49 nitrofurantoin Allergy Rash Verified 09/20/16 12:49 [From Macrodantin] Oxycodone [From Percocet] Allergy Rash Verified 09/20/16 12:49 Sulfa (Sulfonamide Allergy Rash Verified 09/20/16 12:49 Antibiotics) sulfabenzamide Allergy Rash Verified 09/20/16 12:49 Hydromorphone [From Dilaudid] AdvReac Headache Verified 09/20/16 12:49 morphine AdvReac Headache Verified 09/20/16 12:49 Certification: Further, I certify that my clinical findings support that this patient is homebound (i.e. absences from home require considerable and taxing effort and are for medical reasons or taoist services or infrequently or short duration when for other reasons) because: Homebound Reason: Patient requires assistance of a person or device to safely leave home, Leaving home requires considerable and taxing effort due to condition Attestation: My signature below is to certify that this patient is under my care and that I, or nurse practitioner, or a physician's server service assistant working with me, has a face-to -face encounter with this patient.
[2017-11-18] MEDS: Ertapenem 1,000 MG in 0.9 % Sodium Chloride Mini Bag 100 ML IVPB SCH (22:10)
[2017-11-18] MEDS: Acetaminophen 325 MG TABLET PO PRN (22:27)
[2017-11-18] MEDS: ALPRAZolam 0.5 MG TABLET PO SCH (23:00)
[2017-11-19] MEDS: *HR* Heparin 5,000 UNIT/ML VIAL SQ SCH ×2 (05:31→16:59)
[2017-11-19 05:41] LABS: Hematocrit 27.2 % (35.3-44.9); Hemoglobin 8.4 g/dL (11.5-15.4)
[2017-11-19] MEDS: Insulin LISPRO 300 UNITS/3 ML VIAL SQ SCH ×3 (09:47→16:59)
[2017-11-19] MEDS: ARIPiprazole 10 MG TABLET PO SCH (09:47)
[2017-11-19] MEDS: Multivit/Ca/Min/Fe/FA 1 TAB TABLET PO SCH (09:48)
[2017-11-19] MEDS: Aspirin Enteric Coated 81 MG Tablet PO SCH (09:48)
[2017-11-19] MEDS: Cholecalciferol (D-3) 1,000 UNIT TABLET PO SCH (09:48)
[2017-11-19] MEDS: Lactobacillus 1 EACH CAP.SPRINK PO SCH ×2 (09:48→22:01)
[2017-11-19] MEDS: Nystatin POWDER 30 GM BOTTLE TP SCH (09:49)
--- NOTE | 2017-11-19 10:45 | Internal Med Progress Note ---
Date of Encounter: 11/19/17 Time of Encounter: 10:45 - Assessment and plan (1) Sepsis Current Visit: Yes Status: Resolved Assessment and plan: Sepsis has resolved at this time. Monitoring clinical status. Qualifiers: Sepsis type: Escherichia coli Qualified Code(s): A41.51 - Sepsis due to Escherichia coli [E. coli] (2) UTI (urinary tract infection) Current Visit: Yes Status: Acute Assessment and plan: Culture positive for E coli. Has second organism - gram positive cocci. No identified yet. Will add vancomycin to cover MRSA and await final culture results. Qualifiers: Urinary tract infection type: acute cystitis Hematuria presence: without hematuria Qualified Code(s): N30.00 - Acute cystitis without hematuria (3) Anemia Current Visit: Yes Status: Chronic Assessment and plan: H/H slightly lower today. No obvious bleeding. Recheck in AM. Qualifiers: Anemia type: iron deficiency Iron deficiency anemia type: other iron deficiency Qualified Code(s): D50.8 - Other iron deficiency anemias (4) HTN (hypertension) Current Visit: Yes Status: Chronic Assessment and plan: Chronic issue. Continue meds. Qualifiers: Hypertension type: essential hypertension Qualified Code(s): I10 - Essential (primary) hypertension (5) History of spina bifida Current Visit: Yes Status: Chronic Assessment and plan: Chronic issue (6) GERD (gastroesophageal reflux disease) Current Visit: No Status: Chronic Assessment and plan: Chronic issue. Qualifiers: Esophagitis presence: without esophagitis Qualified Code(s): K21.9 - Gastro -esophageal reflux disease without esophagitis (7) Morbid obesity Current Visit: Yes Status: Chronic Assessment and plan: Chronic issue - Time Spent With Patient Total time spent is greater than 50% in coordination of care (as documented) at patient's floor/unit and/or counseling patient: - Subjective Interval history: Ms Mitchell is currently admitted for recurrent UTI with hx of resistant bacteria. She remains moderate to high risk due to potential for worsening clinical status. Ms Mitchell is doing OK. No fever or chills. No pain. No GI issues. Sleeping OK at night. Appetite OK. - Constitutional Vitals: Temp Pulse Resp BP Pulse Ox 97.8 F 65 18 130/77 98 11/19/17 07:42 11/19/17 07:42 11/19/17 07:42 11/19/17 07:42 11/19/17 07:42 General appearance: Present: A&O X 3, morbidly obese, no acute distress, answers questions appropriately - Head Head exam: Present: normocephalic - Eye Eye exam: Present: conjuntiva pink - ENT ENT exam: Present: mucous membranes dry - Respiratory Respiratory exam: Present: decreased breath sounds, CTAB. Absent: rales, rhonchi, wheezes - Cardiovascular Cardiovascular exam: Present: RRR. Absent: tachycardia - GI/Abdominal GI/Abdominal exam: Present: soft. Absent: tenderness - Extremities Exam Extremities exam: Present: warm - Neurological Exam Neurological exam: Present: alert, oriented X3 - Skin Skin exam: Present: dry, warm Internal Medicine: Result - Labs CBC & Chem 7: 11/19/17 05:00 11/18/17 04:30 Labs: Short CBC 11/18/17 11/19/17 Range/Units 12:36 05:00 Hgb 9.8 L D 8.4 L (11.5-15.4) g/dL Hct 32.0 L 27.2 L (35.3-44.9) % Consult Discharge Plan - Plan Referrals: Lorena Velazquez MD [Primary Care Provider] - (i sent a web request on the office should call patient at home with appointment date and time)
[2017-11-19] MEDS: Acetaminophen 325 MG TABLET PO PRN ×2 (16:58→22:01)
[2017-11-19] MEDS: Ertapenem 1,000 MG in 0.9 % Sodium Chloride Mini Bag 100 ML IVPB SCH (22:02)
[2017-11-19] MEDS: ALPRAZolam 0.5 MG TABLET PO SCH (23:01)
[2017-11-20] MEDS: Nystatin POWDER 30 GM BOTTLE TP SCH ×3 (00:17→20:45)
[2017-11-20] MEDS: Insulin LISPRO 300 UNITS/3 ML VIAL SQ SCH ×5 (00:17→20:44)
[2017-11-20 06:12] LABS: Hematocrit 32.7 % (35.3-44.9); Hemoglobin 9.8 g/dL (11.5-15.4); Mean Corpuscular Hemoglobin 25.1 pg (28.0-33.3); Mean Corpuscular Volume 83.8 fL (83.0-100.0); Mean Platelet Volume 10.7 fL (9.4-12.4); Platelet Count 261 K/mcL (140-400); Red Cell Distribution Width 16.5 % (11.5-14.5)
[2017-11-20 06:33] LABS: BUN/Creatinine Ratio 20 (6-26); Blood Urea Nitrogen 17 mg/dL (6-20); Calcium 9.3 mg/dL (8.6-10.3); Carbon Dioxide 30 mEq/L (23-29); Chloride 103 mEq/L (98-107); Glucose 100 mg/dL (70-105); Osmolality,Calculated 292 (280-300); Potassium 4.2 mEq/L (3.5-5.1); Sodium 140 mEq/L (136-145); eGFR For African Americans > 60 (> 60); eGFR For Non-African Americans > 60 (> 60)
[2017-11-20] MEDS: *HR* Heparin 5,000 UNIT/ML VIAL SQ SCH ×2 (06:44→16:33)
[2017-11-20] MEDS: Cholecalciferol (D-3) 1,000 UNIT TABLET PO SCH (09:08)
[2017-11-20] MEDS: Aspirin Enteric Coated 81 MG Tablet PO SCH (09:08)
[2017-11-20] MEDS: Multivit/Ca/Min/Fe/FA 1 TAB TABLET PO SCH (09:08)
[2017-11-20] MEDS: ARIPiprazole 10 MG TABLET PO SCH (09:09)
[2017-11-20] MEDS: Lactobacillus 1 EACH CAP.SPRINK PO SCH ×2 (09:09→20:43)
--- NOTE | 2017-11-20 09:59 | Internal Med Progress Note ---
Date of Encounter: 11/20/17 Time of Encounter: 09:58 - Assessment and plan (1) Sepsis Current Visit: Yes Status: Resolved Assessment and plan: Sepsis most likely combination of E coli and enterococcus. Resolved today. Qualifiers: Sepsis type: Escherichia coli Qualified Code(s): A41.51 - Sepsis due to Escherichia coli [E. coli] (2) UTI (urinary tract infection) Current Visit: Yes Status: Acute Assessment and plan: E coli and Enterococcus. Changed to IV Ceftriaxone today. Qualifiers: Urinary tract infection type: acute cystitis Hematuria presence: without hematuria Qualified Code(s): N30.00 - Acute cystitis without hematuria (3) Anemia Current Visit: Yes Status: Chronic Assessment and plan: H/H improved today. Recheck in AM. Qualifiers: Anemia type: iron deficiency Iron deficiency anemia type: other iron deficiency Qualified Code(s): D50.8 - Other iron deficiency anemias (4) HTN (hypertension) Current Visit: Yes Status: Chronic Assessment and plan: Chronic issue Qualifiers: Hypertension type: essential hypertension Qualified Code(s): I10 - Essential (primary) hypertension (5) History of spina bifida Current Visit: Yes Status: Chronic Assessment and plan: Chronic issue (6) GERD (gastroesophageal reflux disease) Current Visit: No Status: Chronic Assessment and plan: Chronic issue Qualifiers: Esophagitis presence: without esophagitis Qualified Code(s): K21.9 - Gastro -esophageal reflux disease without esophagitis (7) Morbid obesity Current Visit: Yes Status: Chronic Assessment and plan: Chronic issue - Time Spent With Patient Total time spent is greater than 50% in coordination of care (as documented) at patient's floor/unit and/or counseling patient: - Subjective Interval history: Ms Mitchell is currently admitted for recurrent UTI with hx of resistant bacteria. She remains moderate to high risk due to potential for worsening clinical status. Ms Mitchell appears to be doing better today. She was started on Vancomycin yesterday. No fever or chills. No cough. No GI issues. Culture has enterococcus and E coli. - Constitutional Vitals: Temp Pulse Resp BP Pulse Ox 98.6 F 83 16 113/63 99 11/20/17 07:30 11/20/17 07:30 11/20/17 07:30 11/20/17 07:30 11/20/17 07:30 General appearance: Present: A&O X 3, morbidly obese, answers questions appropriately - Head Head exam: Present: normocephalic - Eye Eye exam: Present: conjuntiva pink - ENT ENT exam: Present: mucous membranes dry - Respiratory Respiratory exam: Present: CTAB. Absent: rales, rhonchi, wheezes - Cardiovascular Cardiovascular exam: Present: RRR. Absent: tachycardia - GI/Abdominal GI/Abdominal exam: Present: soft. Absent: tenderness - Extremities Exam Extremities exam: Present: warm - Neurological Exam Neurological exam: Present: alert, oriented X3 - Skin Skin exam: Present: dry, warm Internal Medicine: Result - Labs CBC & Chem 7: 11/20/17 05:14 11/20/17 05:14 Labs: Short CBC 11/20/17 Range/Units 05:14 WBC 7.5 (4.3-11.1) K/mcL Hgb 9.8 L (11.5-15.4) g/dL Hct 32.7 L (35.3-44.9) % Plt Count 261 (140-400) K/mcL [facility] 11/20/17 05:14 Sodium 140 Potassium 4.2 Chloride 103 Carbon Dioxide 30 H BUN 17 Creatinine 0.85 Glucose 100 Calcium 9.3 Consult Discharge Plan - Plan Referrals: Lorena Velazquez MD [Primary Care Provider] - (i sent a web request on the office should call patient at home with appointment date and time)
[2017-11-20] MEDS: Acetaminophen 325 MG TABLET PO PRN ×2 (12:06→20:52)
[2017-11-20] MEDS ORDERED: Aminoglycoside Consult 1 EACH MC ONE (17:04)
[2017-11-20] MEDS ORDERED: cefTRIAXone 2,000 MG in Water for inj. (sterile) 20 ML 20 ML IVP SCH (18:00)
[2017-11-20] MEDS: ALPRAZolam 0.5 MG TABLET PO SCH (20:43)
[2017-11-21] MEDS: *HR* Heparin 5,000 UNIT/ML VIAL SQ SCH (07:33)
[2017-11-21 07:46] VITALS: BP 115/63
[2017-11-21] MEDS: Insulin LISPRO 300 UNITS/3 ML VIAL SQ SCH ×2 (08:08→11:55)
[2017-11-21] MEDS: Aspirin Enteric Coated 81 MG Tablet PO SCH (09:55)
[2017-11-21] MEDS: ARIPiprazole 10 MG TABLET PO SCH (09:55)
[2017-11-21] MEDS: Multivit/Ca/Min/Fe/FA 1 TAB TABLET PO SCH (09:55)
[2017-11-21] MEDS: Lactobacillus 1 EACH CAP.SPRINK PO SCH (09:55)
[2017-11-21] MEDS: Cholecalciferol (D-3) 1,000 UNIT TABLET PO SCH (09:55)
[2017-11-21] MEDS: Nystatin POWDER 30 GM BOTTLE TP SCH (10:02)
--- NOTE | 2017-11-21 10:46 | Discharge Summary ---
<SamanthagerardoClark juárezhi - Last Filed: 11/21/17 14:15> - NOTES TO OUTPATIENT PROVIDER Notes to Outpatient Provider: Patient determined to have UTI with e.coli and enterococcus faecalis. Discharged with EPIV and 4 additional days of Ceftriaxone, received one dose of fosfomycin prior to discharge. Orders not resulted at time of discharge: Pending orders 11/21/17 10:30 Vancomycin,Trough Timed Date of Encounter: 11/21/17 Time of Encounter: 10:45 - Discharge Diagnosis (1) Sepsis Priority: Primary Status: Resolved Assessment and Plan: Sepsis most likely combination of E coli and enterococcus UTI. Resolved. Qualifiers: Sepsis type: Escherichia coli Qualified Code(s): A41.51 - Sepsis due to Escherichia coli [E. coli] (2) GERD (gastroesophageal reflux disease) Priority: Secondary Status: Chronic Assessment and Plan: Known history gerd, continue home medications. Qualifiers: Esophagitis presence: without esophagitis Qualified Code(s): K21.9 - Gastro -esophageal reflux disease without esophagitis (3) HTN (hypertension) Priority: Secondary Status: Chronic Assessment and Plan: Controlled. Continue home medications. Qualifiers: Hypertension type: essential hypertension Qualified Code(s): I10 - Essential (primary) hypertension (4) Anemia Priority: Secondary Status: Chronic Assessment and Plan: H/H improved today. Likely due to volume of IV fluids. Hemoccult was negative. Continue monitoring. Qualifiers: Anemia type: iron deficiency Iron deficiency anemia type: other iron deficiency Qualified Code(s): D50.8 - Other iron deficiency anemias (5) Morbid obesity Priority: Secondary Status: Chronic (6) History of spina bifida Priority: Secondary Status: Chronic (7) UTI (urinary tract infection) Priority: Primary Status: Acute Assessment and Plan: E coli and Enterococcus. Continue Rocephin d3 and one dose fosfomycin. Discontinue vancomycin d2 Qualifiers: Urinary tract infection type: acute cystitis Hematuria presence: without hematuria Qualified Code(s): N30.00 - Acute cystitis without hematuria Hospital course: Ms. Mitchell is a 52 year old female who presented with fevers, nausea, vomiting, and dysuria. Patient has a history of E.coli ESBL. Patient was determined to have Enterococcus and E.coli on urine culture. Patient also had a drop in Hb during stay which was detemrined not to be due to a gi bleed. Patient continued improving regarding symptoms while hospitalized and antibiotics were tailored to sensitivities. Zosyn and Vancomycin discontinued, will discharge with fosfomycin and continue with rocephin for total of 7 days. On discharge day patient feeling better. Patient denies dysuria or abdominal pain. Denies fevers, chills, sweats, headaches, nausea, vomiting, chest pain, shortness of breath, abdominal pain, changes in bowels or bladder, new weakness , new loss of sensation. - Time Spent with Patient Total time spent providing and/or coordinating discharge services: - Discharge Medications Prescriptions: Ceftriaxone Sodium [Ceftriaxone] 2 gm IV DAILY #4 vial.port Home Medications: Aripiprazole [Abilify] 15 mg PO DAILY 05/14/15 [History] Aspirin Enteric Coated [Aspirin EC] 81 mg PO DAILY 05/14/15 [History] Metoclopramide [Reglan] 5 mg PO QID 05/14/15 [History] Verapamil [Isoptin] 80 mg PO DAILY 05/14/15 [History] Omeprazole [PriLOSEC] 20 mg PO BID #0 07/03/15 [History] ALPRAZolam [Xanax 0.5 MG Tablet] 0.5 mg PO HS 01/26/16 [History] Acetaminophen [Tylenol] 650 mg PO Q6HR PRN 01/26/16 [History] Bisacodyl [Dulcolax] 10 mg RC Q48H PRN 01/26/16 [History] Cholecalciferol (D-3) [Vitamin D] 1,000 unit PO DAILY 01/26/16 [History] Lidocaine HCl [Aspercreme] 1 appl TP TID PRN 01/26/16 [History] Multivitamin [Zoo Chews] 1 each PO DAILY 01/26/16 [History] Nystatin POWDER [Nystop] 1 appl TP BID 01/26/16 [History] Polyethylene Glycol 3350 [MiraLAX] 17 gm PO DAILY PRN 01/26/16 [History] Pravastatin Sodium [Pravachol] 20 mg PO HS 01/26/16 [History] metFORMIN [Glucophage] 500 mg PO QPM 01/26/16 [History] Oxybutynin Chloride [Ditropan Xl] 10 mg PO DAILY 03/02/17 [History] Lactobacillus Acidophilus [Acidophilus Probiotic] 2 mg PO BID #20 03/08/17 [Rx] Fluconazole [Diflucan] 150 mg PO QWEEK 11/16/17 [History] Lisinopril-HCTZ 10-12.5 [Prinzide 10-12.5] 1 tab PO DAILY 11/16/17 [History] Ceftriaxone Sodium [Ceftriaxone] 2 gm IV DAILY #4 vial.port 11/21/17 [Rx] Allergies/Adverse Reactions: 3 Allergy/AdvReac Type Severity Reaction Status Date / Time alcohol Allergy Rash Verified 09/20/16 12:49 Amoxicillin [From Augmentin] Allergy Rash Verified 09/20/16 12:49 cephalexin Allergy Rash Verified 09/20/16 15:54 clarithromycin [From Biaxin] Allergy Rash Verified 09/20/16 12:49 clavulanic acid Allergy Rash Verified 09/20/16 12:49 [From Augmentin] doxycycline Allergy Rash Verified 09/20/16 12:49 Ergotamine [From Cafergot] Allergy Rash Verified 09/20/16 12:49 nitrofurantoin Allergy Rash Verified 09/20/16 12:49 [From Macrodantin] Oxycodone [From Percocet] Allergy Rash Verified 09/20/16 12:49 Sulfa (Sulfonamide Allergy Rash Verified 09/20/16 12:49 Antibiotics) sulfabenzamide Allergy Rash Verified 09/20/16 12:49 Hydromorphone [From Dilaudid] AdvReac Headache Verified 09/20/16 12:49 morphine AdvReac Headache Verified 09/20/16 12:49 Date of admission: 11/16/17 21:35 Primary care physician: Lorena Velazquez Consults: 11/17/17 00:27 Consult to Pastoral Services [CONS] Routine Comment: Consult to Malt Loader [CONS] Routine Reason for SW Consult: Developmentally disabled, has home health. 11/18/17 11:17 Consult to PICC team [Consult to Invasive Line Access Team] [CONS] Routine Reason for Consult: care home IV abxs Line Type: EPIV Discharging clinician: Meek Coronado ([facility]) Anticipated date of discharge: 11/21/17 - Constitutional Vitals: Temp Pulse Resp BP Pulse Ox 98.3 F 77 18 115/63 100 11/21/17 07:00 11/21/17 07:00 11/21/17 07:00 11/21/17 07:00 11/21/17 07:00 General appearance: Present: A&O X 3, morbidly obese, no acute distress, answers questions appropriately - Head Head exam: Present: atraumatic, normal inspection, normocephalic - Eye Eye exam: Present: EOMI, normal appearance - ENT ENT exam: Present: mucous membranes moist, normal exam - Neck Neck exam general surgery: Present: full ROM, normal inspection, supple - Respiratory Respiratory exam: Present: CTAB. Absent: rales, respiratory distress, rhonchi, wheezes - Cardiovascular Cardiovascular exam: Present: RRR, +S1, +S2 - GI/Abdominal GI/Abdominal exam: Present: normal bowel sounds, soft. Absent: tenderness - Extremities Exam Extremities exam: Present: normal inspection, warm, radial pulses palpable and symmetrical. Absent: pedal edema, tenderness Additional comments: 5/5 strength all extremities, though decreased overall - Skin Skin exam: Present: dry, intact, normal color, warm - Patient Status Disposition: Home, Self-Care Condition: Fair Functional capacity at discharge: independent ambulation Overall status at discharge: patient is progressing back to baseline - Discharge Instructions Instructions: Urinary Tract Infection in Women (DC), Diabetes Mellitus Type 2 in Adults (DC), Sepsis (DC), Chronic Hypertension (DC), Anemia (GEN) Follow Up With: Lorena Velazquez MD [Primary Care Provider] - 11/29/17 1:45 pm () - Diet and Activity Activity: ambulate only with your walker, as per physical therapy Diet: diabetic diet, low fat, low cholesterol, low salt diet <Meek Coronado - Last Filed: 11/21/17 18:21> Date of Encounter: 11/21/17 - Discharge Diagnosis (1) Sepsis Status: Resolved Qualifiers: Sepsis type: Escherichia coli Qualified Code(s): A41.51 - Sepsis due to Escherichia coli [E. coli] (2) UTI (urinary tract infection) Status: Acute Qualifiers: Urinary tract infection type: acute cystitis Hematuria presence: without hematuria Qualified Code(s): N30.00 - Acute cystitis without hematuria (3) History of spina bifida Status: Chronic (4) HTN (hypertension) Status: Chronic Qualifiers: Hypertension type: essential hypertension Qualified Code(s): I10 - Essential (primary) hypertension (5) GERD (gastroesophageal reflux disease) Status: Chronic Qualifiers: Esophagitis presence: without esophagitis Qualified Code(s): K21.9 - Gastro -esophageal reflux disease without esophagitis (6) Anemia Status: Chronic Qualifiers: Anemia type: iron deficiency Iron deficiency anemia type: other iron deficiency Qualified Code(s): D50.8 - Other iron deficiency anemias (7) Morbid obesity Status: Chronic Hospital course: Ms. Mitchell is a 52 year old female - Time Spent with Patient Total time spent providing and/or coordinating discharge services: 38min Date of admission: 11/16/17 21:35 Primary care physician: Lorena Velazquez Consults: 11/17/17 00:27 Consult to Pastoral Services [CONS] Routine Comment: Consult to Malt Loader [CONS] Routine Reason for SW Consult: Developmentally disabled, has home health. 11/18/17 11:17 Consult to PICC team [Consult to Invasive Line Access Team] [CONS] Routine Reason for Consult: care home IV abxs Line Type: EPIV - Constitutional Vitals: Temp Pulse Resp BP Pulse Ox 98.3 F 77 18 115/63 100 11/21/17 07:00 11/21/17 07:00 11/21/17 07:00 11/21/17 07:00 11/21/17 09:00 - Attending Attestation I examined this patient and my medical decision-making was reviewed with the Resident Physician on 11/21/17. I agree with the documented findings, disposition and treatment plan as described except to the extent set forth below. Ms Mitchell has been admitted for sepsis related to UTI. She is now afebrile and appears to be at baseline mentation. She is to be discharged to complete IV abx. Exam alert Comfortable Mucus membranes dry Heart not tachy No wheeze Abd soft Plan D/C home today Complete IV abx.
--- NOTE | 2017-11-21 11:23 | Physician Discharge Referral ---
Home Health/Hosp Referral Info Transfer to: Home Health Attending Provider: Cliff Provider in Charge Post Discharge: PCP - Diagnosis (1) UTI (urinary tract infection) Priority: Primary Status: Acute (2) Sepsis Priority: Primary Status: Resolved (3) GERD (gastroesophageal reflux disease) Priority: Secondary Status: Chronic (4) HTN (hypertension) Priority: Secondary Status: Chronic (5) Anemia Priority: Secondary Status: Chronic (6) Morbid obesity Priority: Secondary Status: Chronic (7) History of spina bifida Priority: Secondary Status: Chronic - Respiratory Orders Smoking Cessation: Smoking cessation has been advised. For more information, call the [place] Tobacco Quit Line at 2-547-TSSW-NOW. - Diet/Nutrition Diet/Nutrition Orders: No Added Salt (TEGAN), No Concentrated Sweets - Activity Activity Orders: Up ad brian - Services Needed Following services are medically necessary services: Nursing, Home Health Aide, Physical Therapy, Occupational Therapy, Home Infusion (Ceftriaxone 2gms through EPIV x 4 additional days.) - Transfer Medications Prescriptions: Ceftriaxone Sodium [Ceftriaxone] 2 gm IV DAILY #4 vial.port Home Medications: Aripiprazole [Abilify] 15 mg PO DAILY 05/14/15 [History] Aspirin Enteric Coated [Aspirin EC] 81 mg PO DAILY 05/14/15 [History] Metoclopramide [Reglan] 5 mg PO QID 05/14/15 [History] Verapamil [Isoptin] 80 mg PO DAILY 05/14/15 [History] Omeprazole [PriLOSEC] 20 mg PO BID #0 07/03/15 [History] ALPRAZolam [Xanax 0.5 MG Tablet] 0.5 mg PO HS 01/26/16 [History] Acetaminophen [Tylenol] 650 mg PO Q6HR PRN 01/26/16 [History] Bisacodyl [Dulcolax] 10 mg RC Q48H PRN 01/26/16 [History] Cholecalciferol (D-3) [Vitamin D] 1,000 unit PO DAILY 01/26/16 [History] Lidocaine HCl [Aspercreme] 1 appl TP TID PRN 01/26/16 [History] Multivitamin [Zoo Chews] 1 each PO DAILY 01/26/16 [History] Nystatin POWDER [Nystop] 1 appl TP BID 01/26/16 [History] Polyethylene Glycol 3350 [MiraLAX] 17 gm PO DAILY PRN 01/26/16 [History] Pravastatin Sodium [Pravachol] 20 mg PO HS 01/26/16 [History] metFORMIN [Glucophage] 500 mg PO QPM 01/26/16 [History] Oxybutynin Chloride [Ditropan Xl] 10 mg PO DAILY 03/02/17 [History] Lactobacillus Acidophilus [Acidophilus Probiotic] 2 mg PO BID #20 03/08/17 [Rx] Fluconazole [Diflucan] 150 mg PO QWEEK 11/16/17 [History] Lisinopril-HCTZ 10-12.5 [Prinzide 10-12.5] 1 tab PO DAILY 11/16/17 [History] Ceftriaxone Sodium [Ceftriaxone] 2 gm IV DAILY #4 vial.port 11/21/17 [Rx] Allergies/Adverse Reactions: 3 Allergy/AdvReac Type Severity Reaction Status Date / Time alcohol Allergy Rash Verified 09/20/16 12:49 Amoxicillin [From Augmentin] Allergy Rash Verified 09/20/16 12:49 cephalexin Allergy Rash Verified 09/20/16 15:54 clarithromycin [From Biaxin] Allergy Rash Verified 09/20/16 12:49 clavulanic acid Allergy Rash Verified 09/20/16 12:49 [From Augmentin] doxycycline Allergy Rash Verified 09/20/16 12:49 Ergotamine [From Cafergot] Allergy Rash Verified 09/20/16 12:49 nitrofurantoin Allergy Rash Verified 09/20/16 12:49 [From Macrodantin] Oxycodone [From Percocet] Allergy Rash Verified 09/20/16 12:49 Sulfa (Sulfonamide Allergy Rash Verified 09/20/16 12:49 Antibiotics) sulfabenzamide Allergy Rash Verified 09/20/16 12:49 Hydromorphone [From Dilaudid] AdvReac Headache Verified 09/20/16 12:49 morphine AdvReac Headache Verified 09/20/16 12:49 Certification: Further, I certify that my clinical findings support that this patient is homebound (i.e. absences from home require considerable and taxing effort and are for medical reasons or hinduism services or infrequently or short duration when for other reasons) because: Homebound Reason: Patient requires assistance of a person or device to safely leave home, Leaving home requires considerable and taxing effort due to condition Attestation: My signature below is to certify that this patient is under my care and that I, or nurse practitioner, or a physician's project assistant working with me, has a face-to -face encounter with this patient.
[2017-11-21] MEDS: Acetaminophen 325 MG TABLET PO PRN (11:55)
[2017-11-21] MEDS ORDERED: Fosfomycin Tromethamine 3 GM Packet PO ONE (14:45)
[2017-11-21] MEDS ORDERED: cefTRIAXone 2,000 MG in Water for inj. (sterile) 20 ML 20 ML IVP SCH (15:00)
[2017-11-22] MEDS ORDERED: Fluconazole 100 MG TABLET PO SCH (09:00)
== END 2017-11-21 17:05 | disposition home or self-care (01) | DRG 872 ==
LOC: EMEROO 17:51 → 2NENU 17:51 → SUATTDRO 21:35 → 2NENU 22:41
PROVIDERS: ADMIT Internal Medicine; ATTEND Internal Medicine

== ENCOUNTER 2018-11-07 17:43 | Inpatient (IN) ==
[2018-11-07] MEDS: Sucralfate 1 GM TABLET PO SCH ×2 (17:39→21:23)
[~2018-11-07 17:43] MED LIST: SODIUM CHLORIDE/NAHCO3/KCL/PEG 4,000 ML SOLN.RECON PO ONE
--- NOTE | 2018-11-07 17:47 | Anesthesia Evaluation PreOp ---
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, paraplegia) Other Medical History: GERD, Other (obesity BI=42.4, anxiety/depression, left d ecibitus ulcer) Anesthesia History: No Prior Anesthetic Complications, Past Anesthesia Alcohol Use: rarely Drug use: none Medications and Allergies Aripiprazole [Abilify] 15 mg PO DAILY 05/14/15 [History] Aspirin Enteric Coated [Aspirin EC] 81 mg PO DAILY 05/14/15 [History] Metoclopramide [Reglan] 5 mg PO QID 05/14/15 [History] Verapamil [Isoptin] 80 mg PO DAILY 05/14/15 [History] Omeprazole [PriLOSEC] 20 mg PO BID #0 07/03/15 [History] ALPRAZolam [Xanax 0.5 MG Tablet] 0.5 mg PO HS 01/26/16 [History] Acetaminophen [Tylenol] 650 mg PO Q6HR PRN 01/26/16 [History] Cholecalciferol (D-3) [Vitamin D] 1,000 unit PO DAILY 01/26/16 [History] Lidocaine HCl [Aspercreme] 1 appl TP TID PRN 01/26/16 [History] Multivitamin [Zoo Chews] 1 each PO DAILY 01/26/16 [History] Polyethylene Glycol 3350 [MiraLAX] 17 gm PO DAILY PRN 01/26/16 [History] Pravastatin Sodium [Pravachol] 20 mg PO HS 01/26/16 [History] metFORMIN [Glucophage] 500 mg PO QPM 01/26/16 [History] Oxybutynin Chloride [Ditropan Xl] 10 mg PO DAILY 03/02/17 [History] Lactobacillus Acidophilus [Acidophilus Probiotic] 2 mg PO BID #20 03/08/17 [Rx] Fluconazole [Diflucan] 150 mg PO QWEEK 11/16/17 [History] Lisinopril-HCTZ 10-12.5 [Prinzide 10-12.5] 1 tab PO DAILY 05/16/18 [History] Ceftriaxone Sodium [Ceftriaxone] 2 gm IV DAILY #4 vial.port 11/21/17 [Rx] Allergy/AdvReac Type Severity Reaction Status Date / Time alcohol Allergy Rash Verified 09/16/18 01:31 Amoxicillin [From Augmentin] Allergy Rash Verified 09/16/18 01:31 cephalexin Allergy Rash Verified 09/16/18 01:31 clarithromycin [From Biaxin] Allergy Rash Verified 09/16/18 01:31 clavulanic acid Allergy Rash Verified 09/16/18 01:31 [From Augmentin] doxycycline Allergy Rash Verified 09/16/18 01:31 Ergotamine [From Cafergot] Allergy Rash Verified 09/16/18 01:31 nitrofurantoin Allergy Rash Verified 09/16/18 01:31 [From Macrodantin] oxycodone [From Percocet] Allergy Rash Verified 09/16/18 01:31 Sulfa (Sulfonamide Allergy Rash Verified 09/16/18 01:31 Antibiotics) sulfabenzamide Allergy Rash Verified 09/16/18 01:31 hydromorphone [From Dilaudid] AdvReac Headache Verified 09/16/18 01:31 morphine AdvReac Headache Verified 09/16/18 01:31 - Meds/Allergy Pre-op Review Medications Reviewed: Yes Allergies Reviewed: Yes Beta Blockers on Current Med List: No Anesthesia Results - Labs Laboratory Tests 09/16/18 09/16/18 09/16/18 01:43 01:43 01:43 WBC 9.5 Hgb 10.1 L D Hct 33.5 L Plt Count 229 PT 11.3 INR 1.0 APTT 27.7 Sodium 141 Potassium 3.9 BUN 22 H Creatinine 0.76 - Imaging EKG: report reviewed (09/16/2018 Sinus rhythm wnl) Anesthesia Exam Vital Signs/O2 Sat, Most Current Temp Pulse Resp BP Pulse Ox 98.4 F 75 16 125/84 92 11/07/18 15:39 11/07/18 15:39 11/07/18 15:39 11/07/18 15:39 11/07/18 15:39 Height: 4'/1.22m Weight: 139 lbs/63 kg - HEENT Pupil (Motor): EOMI Mallampati: II Teeth: Edentulous Oral Opening: Greater than 3 - CAREERS COUNSELLOR LOC: Oriented CAREERS COUNSELLOR Motor: Normal RUE, Normal LUE, Normal Face, Deficit RLE, Deficit LLE CAREERS COUNSELLOR Sensory: Normal: RUE, LUE, Face, Deficit: RLE (decreased sensation), LLE (decreased sensation) - Cardiac Rhythm: Regular Murmur: None - Pulmonary Breath Sounds: bilateral Clear Respiratory Effort: Symmetrical Anesthesia Assess/Plan ASA Score: 4 Level of consciousness: Cooperative, Oriented, Tranquil Anesthetic Plan: MAC Monitoring Plan: Standard Monitors
[2018-11-07] MEDS ORDERED: TERCONAZOLE VG SCH (21:00)
[2018-11-08] MEDS ORDERED: Acetaminophen 325 MG TABLET PO PRN (01:21)
[2018-11-08] MEDS ORDERED: Fluticasone Propionate Nasal 50 MCG/SPRAY BOTTLE NS SCH (09:00)
[2018-11-08] MEDS ORDERED: ARIPiprazole 10 MG TABLET PO SCH (09:00)
[2018-11-08] MEDS: Sucralfate 1 GM TABLET PO SCH ×2 (09:25→14:41)
[2018-11-08] MEDS ORDERED: Lidocaine -MPF 2% 2 ML VIAL ONE (11:22)
[2018-11-08] MEDS ORDERED: Propofol 500 MG/50 ML INFUS..BTL ONE (11:22)
[2018-11-08] MEDS ORDERED: EPHEDrine 50 MG/ML VIAL ONE (11:27)
--- NOTE | 2018-11-08 11:59 | Gastroenterology Consult Note ---
Date of Encounter: 11/08/18 Time of Encounter: 11:10 - Assessment and plan (1) BRBPR (bright red blood per rectum) Current Visit: Yes Status: Acute Assessment and plan: No further bleeding noted. Plan for colonoscopy today. Keep NPO for colonoscopy. (2) Hemorrhoids Current Visit: Yes Status: Acute Assessment and plan: Recommend daily fiber supplement. Plan for colonoscopy today. Use Analapram cream TID PRN. Qualifiers: Hemorrhoid type: unspecified Qualified Code(s): K64.9 - Unspecified hemorrhoids (3) Family history of colon cancer in father Current Visit: Yes Status: Acute - Time Spent With Patient Total time spent is greater than 50% in coordination of care (as documented) at patient's floor/unit and/or counseling patient: GI History of Present Illness - Data of Consult Patient: known to practice within the last 3 years Consult date: 11/08/18 Requesting Physician: Rashi Rendon MD - Consult Narrative History of present illness: Ms. Mitchell is a 53 year old female with PMHx of diabetes, GERD, hyperlipidemia, hypertension, myocardial infarction who was admitted for assistance for colonoscopy prep. Colonoscopy was ordered to evaluate BRBPR likely due to hemorrhoids. Patient states the bleeding resolved and has had no additional bleeding for the past "couple of months". She denies fever, chills, chest pain, shortness of breath, abdominal pain, nausea, vomiting, diarrhea, or constipation. Last colonoscopy 2015 with two tubular adenoma. Her father has been diagnosed with colon cancer twice. Past Med Surg Social Fam HX - Past Medical History Medical history: diabetes, GERD, hyperlipidemia, hypertension, myocardial infarction, other Additional medical history: Spinabifida, scoliosis. Psychiatric history: anxiety, depression - Past Surgical History Surgical History: angioplasty/stent, appendectomy, cholecystectomy, other Additional surgical history: Cardiac stents x3, shunt placed for hydrocephalus. - Social History Smoking Status: Never smoker Smokeless Tobacco Status: No Alcohol use: rarely Drug use: none - Family History Father Family Member Ethnicity: Non- Living Status: Still Living Hx Family Cancer: Yes (Lung ca) Hx Family Endocrine Disorder: Yes (DM) Mother Adopted: No Family Member Ethnicity: Non- Living Status: Still Living Hx Family Cardiac Disorders: Yes (NC, CHF, HTN, HLD) Hx Family Respiratory Disorders: No Hx Family Cancer: No Hx Family GI Disorders: No Hx Family Endocrine Disorder: No Hx Family Neuromuscular Disorders: No Hx Family Neurologic Disorders: No Hx Family HEENT Disorders: No Hx Family Autoimmune Disorders: No - Gastrointestinal Gastrointestinal: Present: as per HPI - Constitutional Constitutional: as per HPI - EENT Eyes: as per HPI Ears: Present: as per HPI Nose, mouth and throat: Present: as per HPI - Cardiovascular Cardiovascular ROS: Present: as per HPI - Respiratory Respiratory IM: Present: as per HPI - Genitourinary Genitourinary: Absent: change in color, Urinary frequency - Neurological ROS Neurological GI: Present: as per HPI - Hematologic/Lymphatic Hematologic/Lymphatic pediatric: Present: as per HPI - Musculoskeletal Musculoskeletal ROS GI: Present: as per HPI - Integumentary Integumentary GI: Present: as per HPI - Psychiatric ROS Psychiatric GI: Present: as per HPI - Endocrine Endocrine IM: Present: as per HPI - Constitutional Vitals: Temp Pulse Resp BP Pulse Ox 98.0 F 108 16 82/45 90 11/08/18 10:10 11/08/18 10:10 11/08/18 10:10 11/08/18 10:10 11/08/18 10:10 General appearance: Present: cooperative, A&O X 3, no acute distress, answers questions appropriately - Head Head exam: Present: atraumatic, normocephalic - Eye Eye exam: Present: normal appearance, sclera anicteric - ENT ENT exam: Present: mucous membranes moist - Neck Neck exam general surgery: Present: normal inspection, trachea midline - Respiratory Respiratory exam: Present: CTAB. Absent: rales, rhonchi - Cardiovascular Cardiovascular exam: Present: RRR, +S1, +S2 - GI/Abdominal GI/Abdominal exam: Present: soft, no peritoneal signs. Absent: distended, firm, guarding, tenderness - Rectal Rectal exam: Present: deferred - Extremities Exam Extremities exam: Present: warm - Neurological Exam Neurological exam: Present: no focal deficits - Psychiatric Psychiatric exam: Present: normal affect, normal mood - Skin Skin exam: Present: dry, intact, normal color, warm Consult Discharge Plan - Plan Referrals: Lorena Velazquez MD [Primary Care Provider] -
[2018-11-08] MEDS ORDERED: *HR* PHENYLEPHRINE 1,000 MCG/10 ML SYRINGE IVP ONE (12:38)
[2018-11-08 14:29] VITALS: BP 94/62
== END 2018-11-08 17:55 | disposition home or self-care (01) | DRG 394 ==
LOC: 3ANU → EDSTATUS 11-08 12:30
PROVIDERS: ADMIT Internal Medicine Gastroenterology; ATTEND Internal Medicine Gastroenterology

== ENCOUNTER 2019-02-07 12:14 | Inpatient (IN) ==
[2019-02-07] MEDS ORDERED: Isovue-370 500 ML BOTTLE IVP ONE (12:25)
[2019-02-07] MEDS ORDERED: *HR* FentaNYL (PF) 100 MCG/2 ML VIAL IVP ONE (12:45)
[2019-02-07] MEDS ORDERED: Ondansetron 4 MG/2 ML VIAL IVP ONE (12:45)
--- NOTE | 2019-02-07 13:00 | Emergency Department Note ---
Disposition Clinical Impression: Small bowel obstruction Abdominal pain Qualifiers: Abdominal location: generalized Qualified Code(s): R10.84 - Generalized abdominal pain Regional enteritis of small bowel Qualifiers: Digestive disease complication type: without complication Qualified Code(s): K50.00 - Crohn's disease of small intestine without complications Leukocytosis Qualifiers: Leukocytosis type: unspecified Qualified Code(s): D72.829 - Elevated white blood cell count, unspecified Disposition: Admitted As Inpatient Time of Disposition: 20:36 General Adult HPI - General Chief complaint: ED Abdominal Pain Stated complaint: abdominal pain Time Seen by Provider: 02/07/19 12:24 Source: EMS Limitations: physical limitation Nursing Notes Reviewed: Yes Vital Signs Reviewed: Yes - History of Present Illness Pain Scale: 8 - Related Data Home Medications Medication Instructions Recorded Confirmed Aripiprazole [Abilify] 15 mg PO DAILY 05/14/15 11/08/18 Aspirin Enteric Coated [Aspirin EC] 81 mg PO QA 05/14/15 11/08/18 Metoclopramide [Reglan] 5 mg PO BID 05/14/15 12/24/18 Omeprazole [PriLOSEC] 20 mg PO BID #0 07/03/15 12/24/18 ALPRAZolam [Xanax 0.5 MG Tablet] 0.5 mg PO 01/26/16 11/08/18 Lidocaine HCl [Aspercreme] 1 appl TP TID PRN 01/26/16 11/08/18 Multivitamin [Zoo Chews] 1 each PO QA 01/26/16 11/08/18 Polyethylene Glycol 3350 [MiraLAX] 17 gm PO DAILY PRN 01/26/16 11/08/18 Pravastatin Sodium [Pravachol] 20 mg PO 01/26/16 11/08/18 Oxybutynin Chloride [Ditropan XL] 10 mg PO BID 03/02/17 12/24/18 Lisinopril-HCTZ 10-12.5 [Prinzide 1 tab PO QAM 11/16/17 11/08/18 10-12.5] Acetaminophen [Tylenol Arthritis] 1,300 mg PO DAILY PRN 11/08/18 11/08/18 Bisacodyl [Gentle Laxative] 10 mg RC Q8H PRN 11/08/18 11/08/18 Carboxymethylcellulose Sodium 1 each OP DAILY PRN 11/08/18 11/08/18 [Refresh Plus] Cyclosporine [Restasis] 1 drop OP Q12H PRN 11/08/18 11/08/18 Dextran 70/Hypromellose 1 drop BOTH EYES DAILY PRN 11/08/18 11/08/18 [Artificial Tears] Diclofenac Sodium [Voltaren] 1 applic TP DAILY PRN 11/08/18 11/08/18 Lactobacillus Acidophilus 1 mg PO QAM 11/08/18 11/08/18 [Acidophilus Probiotic] Nystatin POWDER [Nystop] 1 appl TP BID PRN 11/08/18 11/08/18 Promethazine [Phenergan] 25 mg PO Q12H PRN 11/08/18 11/08/18 Promethazine/Dextromethorphan 5 ml PO Q6H PRN 11/08/18 11/08/18 [Promethazine-Dm Syrup] Vit C/E/Zn/Coppr/Lutein/Zeaxan 1 cap PO BID 11/08/18 11/08/18 [Preservision Areds 2 Softgel] Temazepam [Restoril] 15 mg PO HS 12/24/18 12/24/18 Allergies Allergy/AdvReac Type Severity Reaction Status Date / Time alcohol Allergy Rash Verified 09/16/18 01:31 Amoxicillin [From Augmentin] Allergy Rash Verified 09/16/18 01:31 cephalexin Allergy Rash Verified 09/16/18 01:31 clarithromycin [From Biaxin] Allergy Rash Verified 09/16/18 01:31 clavulanic acid Allergy Rash Verified 09/16/18 01:31 [From Augmentin] doxycycline Allergy Rash Verified 09/16/18 01:31 Ergotamine [From Cafergot] Allergy Rash Verified 09/16/18 01:31 nitrofurantoin Allergy Rash Verified 09/16/18 01:31 [From Macrodantin] oxycodone [From Percocet] Allergy Rash Verified 09/16/18 01:31 Sulfa (Sulfonamide Allergy Rash Verified 09/16/18 01:31 Antibiotics) sulfabenzamide Allergy Rash Verified 09/16/18 01:31 hydromorphone [From Dilaudid] AdvReac Headache Verified 09/16/18 01:31 morphine AdvReac Headache Verified 09/16/18 01:31 Past Medical History - Past Medical History Medical history: Reports: diabetes, GERD, hyperlipidemia, myocardial infarction, other Surgical history: Reports: angioplasty/stent, appendectomy, cholecystectomy, other Psychiatric history: Reports: anxiety, depression - Social History Smoking Status: Never smoker Smokeless Tobacco Status: No Alcohol use: Reports: rarely Drug use: Reports: none Physical Exam - General Limitations: physical limitation General appearance: alert Course Vital Signs Temperature 98.3 F 02/07/19 12:20 Pulse Rate 121 02/07/19 12:20 Respiratory Rate 18 02/07/19 12:20 Blood Pressure 156/98 02/07/19 12:20 O2 Sat by Pulse Oximetry 93 02/07/19 12:20 Temperature 98.7 F 02/07/19 19:21 Pulse Rate 127 02/07/19 19:21 Respiratory Rate 14 02/07/19 19:21 Blood Pressure 119/84 02/07/19 19:21 O2 Sat by Pulse Oximetry 94 02/07/19 19:21 Oxygen Delivery Oxygen Delivery Room Air Medical Decision Making - [facility] Narrative Medical decision making narrative: Abdomen/Pelvis CT 02/07/19 12:25 IMPRESSION: 1. Mildly dilated fluid-filled loops of mid to distal small bowel. This likely represents a small bowel enteritis. Obstruction is less likely but cannot totally be excluded. 2. Mild bilateral hydronephrosis which is stable with the ileal conduit. 3. No intra-abdominal or pelvic ascites. 4. Hepatic steatosis. D/ / Douglas Woo MD / Douglas Woo MD Interpreting Provider: Douglas Woo MD 1652 hrs.: Spoke with surgery they like an NG tube placed were negative and bring into the hospital. - Lab Data Result diagrams: 02/07/19 15:26 02/07/19 14:41 Lab Results 02/07/19 02/07/19 02/07/19 Range/Units 14:41 14:41 15:26 WBC 15.4 H (4.3-11.1) K/mcL RBC 5.15 H (3.82-4.97) M/mcL Hgb 13.3 (11.5-15.4) g/dL Hct 43.7 (35.3-44.9) % MCV 84.9 (83.0-100.0) fL MCH 25.8 L (28.0-33.3) pg MCHC 30.4 L (31.6-35.5) g/dL RDW 16.2 H (11.5-14.5) % Plt Count 311 (140-400) K/mcL MPV 10.0 (9.4-12.4) fL Immature Gran % 0.3 (0-4) % Seg Neutrophils % 85.7 % Lymphocytes % 9.9 % Monocytes % 3.8 % Eosinophils % 0.0 % Basophils % 0.3 % Neutrophils # 13.2 H (1.6-8.9) K/mcL Lymphocytes # 1.5 (0.6-4.6) K/mcL Monocytes # 0.6 (0.0-1.3) K/mcL Eosinophils # 0.0 (0.0-0.6) K/mcL Basophils # 0.0 (0.0-0.2) K/mcL Sodium 137 (136-145) mEq/L Potassium 3.7 (3.5-5.1) mEq/L Chloride 100 (98-107) mEq/L Carbon Dioxide 25 (23-29) mEq/L BUN 29 H (6-20) mg/dL Creatinine 0.70 (0.60-1.20) mg/dL Est GFR ( Amer) > 60 (> 60) Est GFR (Non-Af Amer) > 60 (> 60) BUN/Creatinine Ratio 41 H (6-26) Glucose 193 H (70-105) mg/dL Calculated Osmolality 295 (280-300) Lactic Acid (0.5-2.2) mmol/L Calcium 8.9 (8.6-10.3) mg/dL Total Bilirubin 0.5 (0.3-1.0) mg/dL Direct Bilirubin 0.2 (0.0-0.2) mg/dL Indirect Bilirubin 0.3 (0.0-1.2) mg/dL AST 34 (13-39) Units/L ALT 46 (7-52) Units/L Alkaline Phosphatase 153 H (34-104) Units/L Serum Total Protein 7.4 (6.4-8.9) g/dL Albumin 4.2 (3.5-5.7) g/dL Globulin 3.2 (2.4-3.5) g/dL Albumin/Globulin Ratio 1.3 (1.1-2.2) Lipase 30 (11-82) Units/L Specimen Rejected Volume 02/07/19 02/07/19 Range/Units 15:26 15:32 WBC (4.3-11.1) K/mcL RBC (3.82-4.97) M/mcL Hgb (11.5-15.4) g/dL Hct (35.3-44.9) % MCV (83.0-100.0) fL MCH (28.0-33.3) pg MCHC (31.6-35.5) g/dL RDW (11.5-14.5) % Plt Count (140-400) K/mcL MPV (9.4-12.4) fL Immature Gran % (0-4) % Seg Neutrophils % % Lymphocytes % % Monocytes % % Eosinophils % % Basophils % % Neutrophils # (1.6-8.9) K/mcL Lymphocytes # (0.6-4.6) K/mcL Monocytes # (0.0-1.3) K/mcL Eosinophils # (0.0-0.6) K/mcL Basophils # (0.0-0.2) K/mcL Sodium (136-145) mEq/L Potassium (3.5-5.1) mEq/L Chloride (98-107) mEq/L Carbon Dioxide (23-29) mEq/L BUN (6-20) mg/dL Creatinine (0.60-1.20) mg/dL Est GFR ( Amer) (> 60) Est GFR (Non-Af Amer) (> 60) BUN/Creatinine Ratio (6-26) Glucose (70-105) mg/dL Calculated Osmolality (280-300) Lactic Acid 1.7 (0.5-2.2) mmol/L Calcium (8.6-10.3) mg/dL Total Bilirubin (0.3-1.0) mg/dL Direct Bilirubin (0.0-0.2) mg/dL Indirect Bilirubin (0.0-1.2) mg/dL AST (13-39) Units/L ALT (7-52) Units/L Alkaline Phosphatase (34-104) Units/L Serum Total Protein (6.4-8.9) g/dL Albumin (3.5-5.7) g/dL Globulin (2.4-3.5) g/dL Albumin/Globulin Ratio (1.1-2.2) Lipase (11-82) Units/L Specimen Rejected Hemolyzed Attestation Statement - Attestation Attestation: This documentation is done with the assistance of Dragon dictation. Despite efforts made to ensure accuracy, there may be inaccuracies in technical operations specialist or spelling and typographical errors. I examined this patient and my medical decision-making was reviewed with the Resident Physician. I agree with the documented findings, disposition and treatment plan as described except to the extent set forth below. Patient was seen and evaluated by Dr. Paz, I agree with their evaluation and management plan, I supervised care the patient's stay. Patient comes in by EMS secondary to abdominal pain. She says "I think my bowels are locked up". History of obstruction in the past but no surgery. She has had a kidney surgery before she has had CAD in the past denies any chest pain. She is nauseous. She says she is not producing much gas did not have a bowel movement today. We will do a workup on her including CT and then reassess. She is in agreement with plan. I reviewed the residents documentation and agree with the residents assessment and plan of care. I have personally had face to face time with the patient. ( Brief History, Brief Exam, and MDM) I personally supervised and was present for the luis/critical portions of the following procedures completed by the resident: EKG was interpreted by the resident under my supervision, I agree with their interpretation.
--- NOTE | 2019-02-07 13:45 | Emergency Department Note ---
Disposition Clinical Impression: Small bowel obstruction Abdominal pain Qualifiers: Abdominal location: unspecified location Qualified Code(s): R10.9 - Unspecified abdominal pain Regional enteritis of small bowel Qualifiers: Digestive disease complication type: without complication Qualified Code(s): K50.00 - Crohn's disease of small intestine without complications Leukocytosis Qualifiers: Leukocytosis type: unspecified Qualified Code(s): D72.829 - Elevated white blood cell count, unspecified Disposition: Admitted As Inpatient Referrals: Lorena Velazquez MD [Primary Care Provider] - Forms: ED Satisfaction Letter, Work/School Release Time of Disposition: 17:01 General Adult HPI - General Chief complaint: ED Abdominal Pain Stated complaint: abdominal pain Time Seen by Provider: 02/07/19 12:24 Source: patient, EMS Mode of arrival: EMS Limitations: physical limitation Nursing Notes Reviewed: Yes Vital Signs Reviewed: Yes - History of Present Illness HPI Narrative: Patient is a 54-year-old female with past medical history including spina bifida, hypertension, coronary artery disease presenting with chief complaint of abdominal pain and nausea. Patient has had a prior history of a bowel obstruction that required NG tube and bowel rest. She states since this morning, she complains of generalized abdominal pain that is constant and intermittently sharp. He feels distended. She also complains of nausea and has had several episodes of nonbilious nonbloody emesis. She states it feels similar to her prior bowel obstruction. Denies fevers or chills. She had a very small bowel movement yesterday which is abnormal for her. Pain Scale: 8 - Related Data Home Medications Medication Instructions Recorded Confirmed Aripiprazole [Abilify] 15 mg PO DAILY 05/14/15 11/08/18 Aspirin Enteric Coated [Aspirin EC] 81 mg PO QAM 05/14/15 11/08/18 Metoclopramide [Reglan] 5 mg PO BID 05/14/15 12/24/18 Omeprazole [PriLOSEC] 20 mg PO BID #0 07/03/15 12/24/18 ALPRAZolam [Xanax 0.5 MG Tablet] 0.5 mg PO HS 01/26/16 11/08/18 Lidocaine HCl [Aspercreme] 1 appl TP TID PRN 01/26/16 11/08/18 Multivitamin [Zoo Chews] 1 each PO QAM 01/26/16 11/08/18 Polyethylene Glycol 3350 [MiraLAX] 17 gm PO DAILY PRN 01/26/16 11/08/18 Pravastatin Sodium [Pravachol] 20 mg PO 01/26/16 11/08/18 Oxybutynin Chloride [Ditropan XL] 10 mg PO BID 03/02/17 12/24/18 Lisinopril-HCTZ 10-12.5 [Prinzide 1 tab PO QAM 11/16/17 11/08/18 10-12.5] Acetaminophen [Tylenol Arthritis] 1,300 mg PO DAILY PRN 11/08/18 11/08/18 Bisacodyl [Gentle Laxative] 10 mg RC Q8H PRN 11/08/18 11/08/18 Carboxymethylcellulose Sodium 1 each OP DAILY PRN 11/08/18 11/08/18 [Refresh Plus] Cyclosporine [Restasis] 1 drop OP Q12H PRN 11/08/18 11/08/18 Dextran 70/Hypromellose 1 drop BOTH EYES DAILY PRN 11/08/18 11/08/18 [Artificial Tears] Diclofenac Sodium [Voltaren] 1 applic TP DAILY PRN 11/08/18 11/08/18 Lactobacillus Acidophilus 1 mg PO QAM 11/08/18 11/08/18 [Acidophilus Probiotic] Nystatin POWDER [Nystop] 1 appl TP BID PRN 11/08/18 11/08/18 Promethazine [Phenergan] 25 mg PO Q12H PRN 11/08/18 11/08/18 Promethazine/Dextromethorphan 5 ml PO Q6H PRN 11/08/18 11/08/18 [Promethazine-Dm Syrup] Vit C/E/Zn/Coppr/Lutein/Zeaxan 1 cap PO BID 11/08/18 11/08/18 [Preservision Areds 2 Softgel] Temazepam [Restoril] 15 mg PO 12/24/18 12/24/18 Allergies Allergy/AdvReac Type Severity Reaction Status Date / Time alcohol Allergy Rash Verified 09/16/18 01:31 Amoxicillin [From Augmentin] Allergy Rash Verified 09/16/18 01:31 cephalexin Allergy Rash Verified 09/16/18 01:31 clarithromycin [From Biaxin] Allergy Rash Verified 09/16/18 01:31 clavulanic acid Allergy Rash Verified 09/16/18 01:31 [From Augmentin] doxycycline Allergy Rash Verified 09/16/18 01:31 Ergotamine [From Cafergot] Allergy Rash Verified 09/16/18 01:31 nitrofurantoin Allergy Rash Verified 09/16/18 01:31 [From Macrodantin] oxycodone [From Percocet] Allergy Rash Verified 09/16/18 01:31 Sulfa (Sulfonamide Allergy Rash Verified 09/16/18 01:31 Antibiotics) sulfabenzamide Allergy Rash Verified 09/16/18 01:31 hydromorphone [From Dilaudid] AdvReac Headache Verified 09/16/18 01:31 morphine AdvReac Headache Verified 09/16/18 01:31 All systems ED: reviewed and negative except as stated. Review of Systems: As Per HPI Constitutional: Denies: fever, chills Cardiovascular: Denies: chest pain, palpitations Respiratory: Denies: cough, dyspnea Gastrointestinal: Reports: abdominal pain, nausea, vomiting. Denies: diarrhea Neurological: Denies: headache, weakness Past Medical History - Past Medical History Attestation: Yes The following information was validated with the patient. Source: patient Medical history: Reports: diabetes, GERD, hyperlipidemia, myocardial infarction, other Surgical history: Reports: angioplasty/stent, appendectomy, cholecystectomy, other Psychiatric history: Reports: anxiety, depression - Social History Smoking Status: Never smoker Smokeless Tobacco Status: No Alcohol use: Reports: rarely Drug use: Reports: none Physical Exam - General Limitations: physical limitation General appearance: alert, in distress - Head Head exam: atraumatic, normocephalic - Eye Eye exam: Present: normal appearance, EOMI - ENT ENT exam: normal exam, normal oropharynx - Neck Neck exam: Present: normal inspection, trachea midline - Chest Chest inspection: Present: normal inspection, symmetric chest wall rise - Respiratory Respiratory exam: Present: normal lung sounds bilaterally. Absent: respiratory distress, wheezes - Cardiovascular Cardiovascular exam: Present: normal rhythm, tachycardia, normal heart sounds - Abdominal Exam Abdominal exam: Present: soft, other (Distended abdomen with generalized abdominal tenderness to palpation, actively vomiting.). Absent: guarding, rebound - Neurological Exam Neurological exam: Present: alert, oriented X3 - Psychiatric Psychiatric exam: Present: normal affect, normal mood - Skin Skin exam: Present: warm, dry. Absent: diaphoresis Course Vital Signs Temperature 98.3 F 02/07/19 12:20 Pulse Rate 121 02/07/19 12:20 Respiratory Rate 18 02/07/19 12:20 Blood Pressure 156/98 02/07/19 12:20 O2 Sat by Pulse Oximetry 93 02/07/19 12:20 Temperature 98.3 F 02/07/19 12:20 Pulse Rate 124 02/07/19 13:29 Respiratory Rate 18 02/07/19 13:29 Blood Pressure 137/83 02/07/19 13:29 O2 Sat by Pulse Oximetry 96 02/07/19 13:29 Oxygen Delivery Oxygen Delivery Room Air Medical Decision Making - [facility] Narrative Medical decision making narrative: Patient is presenting with abdominal pain, nausea and vomiting. Her abdomen is distended and tender. She had a small bowel movement yesterday. She states this feels similar to her prior history of bowel objection. Concerning for bowel obstruction or ileus. We will give her pain control. She does tachycardic and appears slightly dehydrated. We will give her IV fluids and nausea medication as well. We will obtain lab work and CT abdomen and pelvis with IV and oral contrast. NPO. 14:45 Lab hemolyzed and lab will redraw. Pain slightly improved. 15:45 Patient has a leukocytosis, lactate normal. Pain improving. Denies nausea at this time. Being taken for CT at this time. 16:40 CT results show small bowel enteritis versus obstruction. Discussed with acute care surgery. NG tube 18 vietnamese will be placed. Cipro and flagyl ordered. COnsult placed. Hospitalist paged for admission. 17:00 Discussed with hospitalist who accepts admission. - Medical Records Medical records reviewed: Yes I reviewed the patient's medical records. - Lab Data Lab results reviewed: Yes I reviewed the patient's lab results. Result diagrams: 02/07/19 15:26 02/07/19 14:41 Lab Results 02/07/19 02/07/19 02/07/19 Range/Units 14:41 14:41 15:26 WBC 15.4 H (4.3-11.1) K/mcL RBC 5.15 H (3.82-4.97) M/mcL Hgb 13.3 (11.5-15.4) g/dL Hct 43.7 (35.3-44.9) % MCV 84.9 (83.0-100.0) fL MCH 25.8 L (28.0-33.3) pg MCHC 30.4 L (31.6-35.5) g/dL RDW 16.2 H (11.5-14.5) % Plt Count 311 (140-400) K/mcL MPV 10.0 (9.4-12.4) fL Immature Gran % 0.3 (0-4) % Seg Neutrophils % 85.7 % Lymphocytes % 9.9 % Monocytes % 3.8 % Eosinophils % 0.0 % Basophils % 0.3 % Neutrophils # 13.2 H (1.6-8.9) K/mcL Lymphocytes # 1.5 (0.6-4.6) K/mcL Monocytes # 0.6 (0.0-1.3) K/mcL Eosinophils # 0.0 (0.0-0.6) K/mcL Basophils # 0.0 (0.0-0.2) K/mcL Sodium 137 (136-145) mEq/L Potassium 3.7 (3.5-5.1) mEq/L Chloride 100 (98-107) mEq/L Carbon Dioxide 25 (23-29) mEq/L BUN 29 H (6-20) mg/dL Creatinine 0.70 (0.60-1.20) mg/dL Est GFR ( Amer) > 60 (> 60) Est GFR (Non-Af Amer) > 60 (> 60) BUN/Creatinine Ratio 41 H (6-26) Glucose 193 H (70-105) mg/dL Calculated Osmolality 295 (280-300) Lactic Acid (0.5-2.2) mmol/L Calcium 8.9 (8.6-10.3) mg/dL Total Bilirubin 0.5 (0.3-1.0) mg/dL Direct Bilirubin 0.2 (0.0-0.2) mg/dL Indirect Bilirubin 0.3 (0.0-1.2) mg/dL AST 34 (13-39) Units/L ALT 46 (7-52) Units/L Alkaline Phosphatase 153 H (34-104) Units/L Serum Total Protein 7.4 (6.4-8.9) g/dL Albumin 4.2 (3.5-5.7) g/dL Globulin 3.2 (2.4-3.5) g/dL Albumin/Globulin Ratio 1.3 (1.1-2.2) Lipase 30 (11-82) Units/L Specimen Rejected Volume 02/07/19 02/07/19 Range/Units 15:26 15:32 WBC (4.3-11.1) K/mcL RBC (3.82-4.97) M/mcL Hgb (11.5-15.4) g/dL Hct (35.3-44.9) % MCV (83.0-100.0) fL MCH (28.0-33.3) pg MCHC (31.6-35.5) g/dL RDW (11.5-14.5) % Plt Count (140-400) K/mcL MPV (9.4-12.4) fL Immature Gran % (0-4) % Seg Neutrophils % % Lymphocytes % % Monocytes % % Eosinophils % % Basophils % % Neutrophils # (1.6-8.9) K/mcL Lymphocytes # (0.6-4.6) K/mcL Monocytes # (0.0-1.3) K/mcL Eosinophils # (0.0-0.6) K/mcL Basophils # (0.0-0.2) K/mcL Sodium (136-145) mEq/L Potassium (3.5-5.1) mEq/L Chloride (98-107) mEq/L Carbon Dioxide (23-29) mEq/L BUN (6-20) mg/dL Creatinine (0.60-1.20) mg/dL Est GFR ( Amer) (> 60) Est GFR (Non-Af Amer) (> 60) BUN/Creatinine Ratio (6-26) Glucose (70-105) mg/dL Calculated Osmolality (280-300) Lactic Acid 1.7 (0.5-2.2) mmol/L Calcium (8.6-10.3) mg/dL Total Bilirubin (0.3-1.0) mg/dL Direct Bilirubin (0.0-0.2) mg/dL Indirect Bilirubin (0.0-1.2) mg/dL AST (13-39) Units/L ALT (7-52) Units/L Alkaline Phosphatase (34-104) Units/L Serum Total Protein (6.4-8.9) g/dL Albumin (3.5-5.7) g/dL Globulin (2.4-3.5) g/dL Albumin/Globulin Ratio (1.1-2.2) Lipase (11-82) Units/L Specimen Rejected Hemolyzed - Radiology Data Radiology results reviewed: Yes I reviewed the patient's radiology results. Abdomen/Pelvis CT 02/07/19 12:25 IMPRESSION: 1. Mildly dilated fluid-filled loops of mid to distal small bowel. This likely represents a small bowel enteritis. Obstruction is less likely but cannot totally be excluded. 2. Mild bilateral hydronephrosis which is stable with the ileal conduit. 3. No intra-abdominal or pelvic ascites. 4. Hepatic steatosis. D/ / Douglas Woo MD / Douglas Woo MD Interpreting Provider: Douglas Woo MD - EKG Data EKG #1 EKG attestation: Yes I reviewed and interpreted this EKG. EKG results narrative: EKG obtained at 12:30 shows sinus tachycardia with heart rate 121, ND interval 127, QRS duration 181, QTC 452, no ST elevation or depression, compared to old EKG in 12/24/2018 which shows any changes.
[2019-02-07] MEDS ORDERED: 0.9 % Sodium Chloride 1,000 ML IVC ONE ×2 (14:19→16:51)
[2019-02-07 15:10] LABS: Alanine Aminotransferase 46 Units/L (7-52); Albumin 4.2 g/dL (3.5-5.7); Albumin/Globulin Ratio 1.3 (1.1-2.2); Alkaline Phosphatase 153 Units/L (34-104); Aspartate Amino Transferase 34 Units/L (13-39); BUN/Creatinine Ratio 41 (6-26); Bilirubin,Direct 0.2 mg/dL (0.0-0.2); Bilirubin,Indirect 0.3 mg/dL (0.0-1.2); Bilirubin,Total 0.5 mg/dL (0.3-1.0); Blood Urea Nitrogen 29 mg/dL (6-20); Calcium 8.9 mg/dL (8.6-10.3); Carbon Dioxide 25 mEq/L (23-29); Chloride 100 mEq/L (98-107); Globulin 3.2 g/dL (2.4-3.5); Glucose 193 mg/dL (70-105); Lipase 30 Units/L (11-82); Osmolality,Calculated 295 (280-300); Potassium 3.7 mEq/L (3.5-5.1); Sodium 137 mEq/L (136-145); Total Protein 7.4 g/dL (6.4-8.9); eGFR For African Americans > 60 (> 60); eGFR For Non-African Americans > 60 (> 60)
[2019-02-07 15:40] LABS: Basophils % 0.3 %; Hematocrit 43.7 % (35.3-44.9); Hemoglobin 13.3 g/dL (11.5-15.4); Immature Granulocytes % 0.3 % (0-4); Lymphocytes # 1.5 K/mcL (0.6-4.6); Lymphocytes % 9.9 %; Mean Corpuscular HGB Conc 30.4 g/dL (31.6-35.5); Mean Corpuscular Hemoglobin 25.8 pg (28.0-33.3); Mean Corpuscular Volume 84.9 fL (83.0-100.0); Monocytes # 0.6 K/mcL (0.0-1.3); Monocytes % 3.8 %; Neutrophils # 13.2 K/mcL (1.6-8.9); Platelet Count 311 K/mcL (140-400); Red Blood Count 5.15 M/mcL (3.82-4.97); Red Cell Distribution Width 16.2 % (11.5-14.5); Segmented Neutrophils % 85.7 %; White Blood Count 15.4 K/mcL (4.3-11.1)
[2019-02-07] MEDS ORDERED: MetroNIDAZOLE 500 MG/100 ML 500 MG/100 ML BAG IVPB ONE (16:32)
[2019-02-07] MEDS ORDERED: Naloxone 0.4 MG/ML INJ IVP PRN (17:45)
[2019-02-07] MEDS ORDERED: 0.9 % Sodium Chloride 1,000 ML IV ONE ×2 (17:52→22:15)
--- NOTE | 2019-02-07 18:26 | Internal Med History&Physical ---
Date of Encounter: 02/07/19 Time of Encounter: 18:23 Internal Medicine - H&P: HPI Admitted From: Home Plans for Post Hospital Care: Home History of present illness: Ms. Mitchell is a 54 year old female with a past medical history of hydrocephalus status post intra-abdominal shunt, type 2 diabetes, coronary artery disease status post 3 stents in 2003, constipation, cholecystectomy and left partial nephrectomy. She presented with a day's duration of generalized abdominal pain with associated nausea and vomiting. She describes the pain as a 9/10 ache which began suddenly around 2am today with no aggravating or relieving factor. She also reports several episodes of nonbilous vomiting. Patient states that she has had bowel obstructions in the past which required NG tube and bowel rest. Past Med Surg Social Fam HX - Past Medical History Medical history: diabetes, GERD, hyperlipidemia, myocardial infarction, other Additional medical history: spinalbifida Psychiatric history: anxiety, depression - Past Surgical History Surgical History: angioplasty/stent, appendectomy, cholecystectomy, other Additional surgical history: Cardiac stents x3, shunt placed for hydrocephalus. - Social History Smoking Status: Never smoker Smokeless Tobacco Status: No Alcohol use: rarely Drug use: none - Family History Father Family Member Ethnicity: Non- Living Status: Still Living Hx Family Cancer: Yes (Lung ca) Hx Family Endocrine Disorder: Yes ([place]) Mother Adopted: No Race: Family Member Ethnicity: Non- Living Status: Age at : 54 Hx Family Cardiac Disorders: Yes ([place]) Hx Family Respiratory Disorders: No Hx Family Cancer: No Hx Family GI Disorders: No Hx Family Endocrine Disorder: No Hx Family Neuromuscular Disorders: No Hx Family Neurologic Disorders: No Hx Family HEENT Disorders: No Hx Family Autoimmune Disorders: No Internal Medicine - H&P: Meds Aripiprazole [Abilify] 15 mg PO DAILY 05/14/15 [History] Aspirin Enteric Coated [Aspirin EC] 81 mg PO QAM 05/14/15 [History] Metoclopramide [Reglan] 5 mg PO BID 05/14/15 [History] Omeprazole [PriLOSEC] 20 mg PO BID #0 07/03/15 [History] ALPRAZolam [Xanax 0.5 MG Tablet] 0.5 mg PO HS 01/26/16 [History] Lidocaine HCl [Aspercreme] 1 appl TP TID PRN 01/26/16 [History] Multivitamin [Zoo Chews] 1 each PO QAM 01/26/16 [History] Polyethylene Glycol 3350 [MiraLAX] 17 gm PO DAILY PRN 01/26/16 [History] Pravastatin Sodium [Pravachol] 20 mg PO HS 01/26/16 [History] Oxybutynin Chloride [Ditropan XL] 10 mg PO BID 03/02/17 [History] Lisinopril-HCTZ 10-12.5 [Prinzide 10-12.5] 1 tab PO QAM 11/16/17 [History] Acetaminophen [Tylenol Arthritis] 1,300 mg PO DAILY PRN 11/08/18 [History] Bisacodyl [Gentle Laxative] 10 mg RC Q8H PRN 11/08/18 [History] Carboxymethylcellulose Sodium [Refresh Plus] 1 each OP DAILY PRN 11/08/18 [History] Cyclosporine [Restasis] 1 drop OP Q12H PRN 11/08/18 [History] Dextran 70/Hypromellose [Artificial Tears] 1 drop BOTH EYES DAILY PRN 11/08/18 [History] Diclofenac Sodium [Voltaren] 1 applic TP DAILY PRN 11/08/18 [History] Lactobacillus Acidophilus [Acidophilus Probiotic] 1 mg PO QAM 11/08/18 [History] Nystatin POWDER [Nystop] 1 appl TP BID PRN 11/08/18 [History] Promethazine [Phenergan] 25 mg PO Q12H PRN 11/08/18 [History] Promethazine/Dextromethorphan [Promethazine-Dm Syrup] 5 ml PO Q6H PRN 11/08/18 [History] Vit C/E/Zn/Coppr/Lutein/Zeaxan [Preservision Areds 2 Softgel] 1 cap PO BID 11/08/18 [History] Temazepam [Restoril] 15 mg PO HS 12/24/18 [History] Allergy/AdvReac Type Severity Reaction Status Date / Time alcohol Allergy Rash Verified 09/16/18 01:31 Amoxicillin [From Augmentin] Allergy Rash Verified 09/16/18 01:31 cephalexin Allergy Rash Verified 09/16/18 01:31 clarithromycin [From Biaxin] Allergy Rash Verified 09/16/18 01:31 clavulanic acid Allergy Rash Verified 09/16/18 01:31 [From Augmentin] doxycycline Allergy Rash Verified 09/16/18 01:31 Ergotamine [From Cafergot] Allergy Rash Verified 09/16/18 01:31 nitrofurantoin Allergy Rash Verified 09/16/18 01:31 [From Macrodantin] oxycodone [From Percocet] Allergy Rash Verified 09/16/18 01:31 Sulfa (Sulfonamide Allergy Rash Verified 09/16/18 01:31 Antibiotics) sulfabenzamide Allergy Rash Verified 09/16/18 01:31 hydromorphone [From Dilaudid] AdvReac Headache Verified 09/16/18 01:31 morphine AdvReac Headache Verified 09/16/18 01:31 All Systems PM: A 10-system review of systems was performed and is negative for pertinent fi ndings except as documented above in the HPI. Review of systems: GENERAL: No fatigue HEENT: No rhinorrhea, No sore throat, No ear pain or discharge, No dysphagia or odynophagia PULMONARY: No cough, No chest pain, No Sputum production, No dyspnea on exertion CARDIOVASCULAR: No chest pain, no palpitations, No shortness of breath, No PND, No orthopnea GASTROINTESTINAL: Abdominal pain, constipation, nausea and vomiting MUSKULOSKELETAL: No edema, No swelling, No pain INTEGUMENTARY: No new skin lesions NERVOUS SYSTEM: No Dizziness, No weakness, No slurred speech, No diplopia or blurred/ loss vision, No numbness, No tinglng sensation - Constitutional Vitals: Temp Pulse Resp BP Pulse Ox 36.8 C 124 18 137/83 96 02/07/19 12:20 02/07/19 13:29 02/07/19 13:29 02/07/19 13:29 02/07/19 13:29 Exam: GENERAL: Moderate distress. Alert and Oriented HEENT: EOMI, PERRLA MOUTH: Edentulous mouth, moist mucosa NECK:No JVD, No lymph nodes. CHEST AND LUNGS: Normal breath sounds, no wheezes or crackles HEART: S1 and S2 normal, no murmurs ABDOMEN: Obese but moderately distended and generally tender to deep palpation. Surgical scars. Increased pitch of bowel sounds SKIN: Normal color, no rashes, no lesions EXTREMITIES: Atrophic lower extremities. With increased muscle tone NEUROLOGICAL: Normal cognition Internal Med - H&P Results - Labs CBC & Chem 7: 02/07/19 15:26 02/07/19 14:41 Labs: Short CBC 02/07/19 Range/Units 15:26 WBC 15.4 H (4.3-11.1) K/mcL Hgb 13.3 (11.5-15.4) g/dL Hct 43.7 (35.3-44.9) % Plt Count 311 (140-400) K/mcL Neutrophils # 13.2 H (1.6-8.9) K/mcL BMP 02/07/19 14:41 Sodium 137 Potassium 3.7 Chloride 100 Carbon Dioxide 25 BUN 29 H Creatinine 0.70 Glucose 193 H Calcium 8.9 Liver Function 02/07/19 Range/Units 14:41 Total Bilirubin 0.5 (0.3-1.0) mg/dL Direct Bilirubin 0.2 (0.0-0.2) mg/dL AST 34 (13-39) Units/L ALT 46 (7-52) Units/L Alkaline Phosphatase 153 H (34-104) Units/L Albumin 4.2 (3.5-5.7) g/dL - Impressions ITS Impressions Abdomen/Pelvis CT 02/07/19 12:25 IMPRESSION: 1. Mildly dilated fluid-filled loops of mid to distal small bowel. This likely represents a small bowel enteritis. Obstruction is less likely but cannot totally be excluded. 2. Mild bilateral hydronephrosis which is stable with the ileal conduit. 3. No intra-abdominal or pelvic ascites. 4. Hepatic steatosis. D/ / Douglas Woo MD / Douglas Woo MD Interpreting Provider: Douglas Woo MD - Assessment and Plan (1) Abdominal pain Current Visit: Yes Status: Acute Assessment and plan: Sudden onset 9 out of 10 ache Associated nausea vomiting We will give adequate analgesia We will place NG tube Consult general surgery Qualifiers: Abdominal location: generalized Qualified Code(s): R10.84 - Generalized abdominal pain (2) Small bowel obstruction Current Visit: Yes Status: Acute Assessment and plan: Patient has had multiple episodes of small bowel obstruction in the past I reviewed the current CT scan. Copious hard stools throughout the large bowel. Fluid-filled small bowel We will place NG tube IV fluids Patient might require stool disimpaction or enema during this admission Consult general surgery (3) DVT prophylaxis Current Visit: No Status: Acute Assessment and plan: EPC D (4) CAD (coronary artery disease) Current Visit: No Status: Chronic Assessment and plan: History of coronary artery disease with 3 stent placements in 2003 We will hold aspirin for now awaiting general surgery recommendation Qualifiers: Coronary Disease-Associated Artery/Lesion type: nikolai artery [place] vs. transplanted heart: nikolai heart Associated angina: without angina Qualified Code(s): I25.10 - Atherosclerotic heart disease of nikolai coronary artery without angina pectoris (5) Diabetes Current Visit: No Status: Chronic Qualifiers: Diabetes mellitus type: type 2 Diabetes mellitus terminologist insulin use: without correction use Diabetes mellitus complication status: with hyperglycemia Qualified Code(s): E11.65 - Type 2 diabetes mellitus with hyperglycemia (6) HTN (hypertension) Current Visit: No Status: Chronic Assessment and plan: Patient to remain nothing by mouth When necessary hydralazine for elevated blood pressure Qualifiers: Hypertension type: essential hypertension Qualified Code(s): I10 - Essential (primary) hypertension (7) Enteritis Current Visit: Yes Status: Acute Assessment and plan: CT scan showed mildly dilated fluid-filled loops of mid to distal small bowel. Likely to represent a small bowel enteritis WBC elevated. 14 Patient on IV ciprofloxacin and metronidazole - Time Spent With Patient Total time spent is greater than 50% in coordination of care (as documented) at patient's floor/unit and/or counseling patient:
--- NOTE | 2019-02-07 19:47 | AcuteCare Surgery Consult Note ---
Date of Encounter: 02/07/19 Time of Encounter: 19:40 Assessment and Plan (1) Abdominal pain Current Visit: Yes Status: Acute 54F with abdominal pain with concern for gastroenteritis vs small bowel obstruction; non septic, HDS NPO IVF NG tube to LIWS serial exams small bowel follow through on 02/08 to eval for obstruction; no acute surgery Qualifiers: Abdominal location: generalized Qualified Code(s): R10.84 - Generalized abdominal pain History of Present Illness Consult date: 02/07/19 Reason for consult: abdominal pain History of present illness: 54F PMH significant for hydrocephalus with intra-abdominal shunt, DM, CAD s/p stenting in 2003 who presents with abdominal pain not localized to any one location, non radiating. the pain is associated nausea and non bilious, non bloody vomiting, rates a 9/10, witih no identifiable precipating events, nor any alleviating or exacerbating factors. The patient has had prior small bowel obstructions in the past and feels this is much like prior episodes. A CT scan was obtained, which was reviewed and interpreted by me, which demonstrated dilated loops of bowel, concerning more for enteritis vs obstruction. However, with patient having vomiting and feeling like this was similar to prior episodes, the decision was made for admission. Acute Care surgery was consulted for management recommendations. Patient states that she has had bowel obst ructions in the past which required NG tube and bowel rest. Past Med Surg Social Fam HX - Past Medical History Medical history: diabetes, GERD, hyperlipidemia, myocardial infarction, other Additional medical history: spinalbifida Psychiatric history: anxiety, depression - Past Surgical History Surgical History: angioplasty/stent, appendectomy, cholecystectomy, other Additional surgical history: Cardiac stents x3, shunt placed for hydrocephalus. - Social History Smoking Status: Never smoker Smokeless Tobacco Status: No Alcohol use: rarely Drug use: none - Family History Father Family Member Ethnicity: Non- Living Status: Still Living Hx Family Cancer: Yes (Lung ca) Hx Family Endocrine Disorder: Yes (DM) Mother Adopted: No Race: Family Member Ethnicity: Non- Living Status: Age at : 54 Hx Family Cardiac Disorders: Yes ([place]) Hx Family Respiratory Disorders: No Hx Family Cancer: No Hx Family GI Disorders: No Hx Family Endocrine Disorder: No Hx Family Neuromuscular Disorders: No Hx Family Neurologic Disorders: No Hx Family HEENT Disorders: No Hx Family Autoimmune Disorders: No Medications and Allergies Aripiprazole [Abilify] 15 mg PO DAILY 05/14/15 [History] Aspirin Enteric Coated [Aspirin EC] 81 mg PO QAM 05/14/15 [History] Metoclopramide [Reglan] 5 mg PO BID 05/14/15 [History] Omeprazole [PriLOSEC] 20 mg PO BID #0 07/03/15 [History] ALPRAZolam [Xanax 0.5 MG Tablet] 0.5 mg PO HS 01/26/16 [History] Lidocaine HCl [Aspercreme] 1 appl TP TID PRN 01/26/16 [History] Multivitamin [Zoo Chews] 1 each PO QAM 01/26/16 [History] Polyethylene Glycol 3350 [MiraLAX] 17 gm PO DAILY PRN 01/26/16 [History] Pravastatin Sodium [Pravachol] 20 mg PO HS 01/26/16 [History] Oxybutynin Chloride [Ditropan XL] 10 mg PO BID 03/02/17 [History] Lisinopril-HCTZ 10-12.5 [Prinzide 10-12.5] 1 tab PO QAM 11/16/17 [History] Acetaminophen [Tylenol Arthritis] 1,300 mg PO DAILY PRN 11/08/18 [History] Bisacodyl [Gentle Laxative] 10 mg RC Q8H PRN 11/08/18 [History] Carboxymethylcellulose Sodium [Refresh Plus] 1 each OP DAILY PRN 11/08/18 [History] Cyclosporine [Restasis] 1 drop OP Q12H PRN 11/08/18 [History] Dextran 70/Hypromellose [Artificial Tears] 1 drop BOTH EYES DAILY PRN 11/08/18 [History] Diclofenac Sodium [Voltaren] 1 applic TP DAILY PRN 11/08/18 [History] Lactobacillus Acidophilus [Acidophilus Probiotic] 1 mg PO QAM 11/08/18 [History] Nystatin POWDER [Nystop] 1 appl TP BID PRN 11/08/18 [History] Promethazine [Phenergan] 25 mg PO Q12H PRN 11/08/18 [History] Promethazine/Dextromethorphan [Promethazine-Dm Syrup] 5 ml PO Q6H PRN 11/08/18 [History] Vit C/E/Zn/Coppr/Lutein/Zeaxan [Preservision Areds 2 Softgel] 1 cap PO BID 11/08/18 [History] Temazepam [Restoril] 15 mg PO HS 12/24/18 [History] Allergy/AdvReac Type Severity Reaction Status Date / Time alcohol Allergy Rash Verified 09/16/18 01:31 Amoxicillin [From Augmentin] Allergy Rash Verified 09/16/18 01:31 cephalexin Allergy Rash Verified 09/16/18 01:31 clarithromycin [From Biaxin] Allergy Rash Verified 09/16/18 01:31 clavulanic acid Allergy Rash Verified 09/16/18 01:31 [From Augmentin] doxycycline Allergy Rash Verified 09/16/18 01:31 Ergotamine [From Cafergot] Allergy Rash Verified 09/16/18 01:31 nitrofurantoin Allergy Rash Verified 09/16/18 01:31 [From Macrodantin] oxycodone [From Percocet] Allergy Rash Verified 09/16/18 01:31 Sulfa (Sulfonamide Allergy Rash Verified 09/16/18 01:31 Antibiotics) sulfabenzamide Allergy Rash Verified 09/16/18 01:31 hydromorphone [From Dilaudid] AdvReac Headache Verified 09/16/18 01:31 morphine AdvReac Headache Verified 09/16/18 01:31 Review of Systems All systems PM: 12 point ROS negative besides HPi findings General Surgery Exam Initial Vital Signs Temp Pulse Resp BP Pulse Ox 98.3 F 121 18 156/98 93 02/07/19 12:20 02/07/19 12:20 02/07/19 12:20 02/07/19 12:20 02/07/19 12:20 - General physical appearance no distress - Respiratory normal expansion, normal respiratory effort - Cardiovascular Cardiovascular exam: Present: RRR - Abdomen Abdomen general surgery: Present: soft, tender (minimally tender on exam) Abdominal Tenderness: Present: epigastic, RUQ, LUQ - Integumentary Integumentary general surgery: Present: warm and dry, no abnormal pigmentation - Neurologic Present: CN 2-12 grossly intact - Musculoskeletal Present: normal posture - Psychiatric Psychiatric general surgery: Present: A&Ox3 Exam Initial Vital Signs Temp Pulse Resp BP Pulse Ox 98.3 F 121 18 156/98 93 02/07/19 12:20 02/07/19 12:20 02/07/19 12:20 02/07/19 12:20 02/07/19 12:20 Results - Labs 02/07/19 15:26 02/07/19 14:41 Abnormal lab results WBC 15.4 K/mcL (4.3-11.1) H 02/07/19 15:26 RBC 5.15 M/mcL (3.82-4.97) H 02/07/19 15:26 MCH 25.8 pg (28.0-33.3) L 02/07/19 15:26 MCHC 30.4 g/dL (31.6-35.5) L 02/07/19 15:26 RDW 16.2 % (11.5-14.5) H 02/07/19 15:26 Neutrophils # 13.2 K/mcL (1.6-8.9) H 02/07/19 15:26 BUN 29 mg/dL (6-20) H 02/07/19 14:41 BUN/Creatinine Ratio 41 (6-26) H 02/07/19 14:41 Glucose 193 mg/dL (70-105) H 02/07/19 14:41 Alkaline Phosphatase 153 Units/L (34-104) H 02/07/19 14:41 Diabetes panel 02/07/19 Range/Units 14:41 Sodium 137 (136-145) mEq/L Potassium 3.7 (3.5-5.1) mEq/L Chloride 100 (98-107) mEq/L Carbon Dioxide 25 (23-29) mEq/L BUN 29 H (6-20) mg/dL Creatinine 0.70 (0.60-1.20) mg/dL Glucose 193 H (70-105) mg/dL Calcium 8.9 (8.6-10.3) mg/dL AST 34 (13-39) Units/L ALT 46 (7-52) Units/L Alkaline Phosphatase 153 H (34-104) Units/L Albumin 4.2 (3.5-5.7) g/dL Calcium panel 02/07/19 Range/Units 14:41 Calcium 8.9 (8.6-10.3) mg/dL Albumin 4.2 (3.5-5.7) g/dL Pituitary panel 02/07/19 Range/Units 14:41 Sodium 137 (136-145) mEq/L Potassium 3.7 (3.5-5.1) mEq/L Chloride 100 (98-107) mEq/L Carbon Dioxide 25 (23-29) mEq/L BUN 29 H (6-20) mg/dL Creatinine 0.70 (0.60-1.20) mg/dL Glucose 193 H (70-105) mg/dL Calcium 8.9 (8.6-10.3) mg/dL Adrenal panel 02/07/19 Range/Units 14:41 Sodium 137 (136-145) mEq/L Potassium 3.7 (3.5-5.1) mEq/L Chloride 100 (98-107) mEq/L Carbon Dioxide 25 (23-29) mEq/L BUN 29 H (6-20) mg/dL Creatinine 0.70 (0.60-1.20) mg/dL Glucose 193 H (70-105) mg/dL Calcium 8.9 (8.6-10.3) mg/dL Total Bilirubin 0.5 (0.3-1.0) mg/dL AST 34 (13-39) Units/L ALT 46 (7-52) Units/L Alkaline Phosphatase 153 H (34-104) Units/L Albumin 4.2 (3.5-5.7) g/dL All other labs normal. - Imaging CT scan - abdomen: report reviewed, image reviewed CT scan - pelvis: report reviewed, image reviewed Consult Discharge Plan - Plan Referrals: Lorena Velazquez MD [Primary Care Provider] -
[2019-02-07] MEDS ORDERED: Acetaminophen IV 500 MG/50 ML INFUS..BTL IVPB ONE (20:20)
[2019-02-08] MEDS: MetroNIDAZOLE 500 MG/100 ML 500 MG/100 ML BAG IVPB SCH ×3 (00:17→16:35)
[2019-02-08] MEDS: Ondansetron 4 MG/2 ML VIAL IVP PRN ×2 (00:30→10:41)
[2019-02-08 06:42] LABS: Basophils % 0.3 %; Eosinophils % 0.2 %; Hemoglobin 12.1 g/dL (11.5-15.4); Immature Granulocytes % 0.4 % (0-4); Immature Platelets 3.2 % (1.1-6.1); Lymphocytes # 2.2 K/mcL (0.6-4.6); Lymphocytes % 23.6 %; Mean Corpuscular HGB Conc 30.3 g/dL (31.6-35.5); Mean Corpuscular Hemoglobin 26.1 pg (28.0-33.3); Mean Corpuscular Volume 86.4 fL (83.0-100.0); Mean Platelet Volume 10.3 fL (9.4-12.4); Monocytes # 0.8 K/mcL (0.0-1.3); Monocytes % 8.3 %; Neutrophils # 6.3 K/mcL (1.6-8.9); Platelet Count 259 K/mcL (140-400); Red Blood Count 4.63 M/mcL (3.82-4.97); Red Cell Distribution Width 16.8 % (11.5-14.5); Segmented Neutrophils % 67.2 %; White Blood Count 9.4 K/mcL (4.3-11.1)
[2019-02-08 06:55] LABS: BUN/Creatinine Ratio 34 (6-26); Blood Urea Nitrogen 28 mg/dL (6-20); Calcium 8.5 mg/dL (8.6-10.3); Carbon Dioxide 24 mEq/L (23-29); Chloride 104 mEq/L (98-107); Glucose 158 mg/dL (70-105); Osmolality,Calculated 305 (280-300); Potassium 3.7 mEq/L (3.5-5.1); Sodium 143 mEq/L (136-145); eGFR For African Americans > 60 (> 60); eGFR For Non-African Americans > 60 (> 60)
[2019-02-08] MEDS ORDERED: Pantoprazole 40 MG VIAL IVP ONE (09:01)
--- NOTE | 2019-02-08 13:23 | AcuteCareSurgery Progress Note ---
<Jessica Hung - Last Filed: 02/08/19 13:21> Date of Encounter: 02/08/19 Time of Encounter: 07:20 (Reassessed 1310) - Assessment and Plan (1) Abdominal pain Current Visit: Yes Status: Acute Small bowel follow-through was unremarkable. The patient is having copious amounts of stool/BMs. DC NG clear liquid diet, ADAT continue cares per primary team Qualifiers: Abdominal location: generalized Qualified Code(s): R10.84 - Generalized abdominal pain Subjective Patient reports: no new complaints, pain is less, flatus, bowel movement, diarr hea Objective Vital Signs - Last 8 Hours Temp Pulse Resp BP Pulse Ox 02/08/19 10:37 98.0 F 110 16 112/68 90 02/08/19 06:48 98.5 F 106 16 119/73 90 Intake and Output 02/07/19 02/08/19 02/08/19 23:59 07:59 15:59 Intake Total 150 / 150 Output Total 950 / 950 400 / 650 250 / 650 Balance -950 / -950 -250 / -500 -250 / -500 Intake: IV Fluids 150 / 150 Ofirmev 1,000 mg/100 ml 500 mg 50 / 50 In 50 ml @ 200 mls/hr IVPB ONCE ONE Rx#:[id number] Flagyl Premix 500 MG/100 ML 500 100 / 100 mg In 100 ml @ 100 mls/hr IVPB Q8HR FILI Rx#:[id number] Output: Urine 950 / 950 Catheter 400 / 650 250 / 650 Other: Stool Size Small Small Stool Consistency loose loose liquid Stool Color Yellow Yellow Green Green # Bowel Movement Diapers 1 1 Weight 57.6 kg Blood Glucose* 132 - General physical appearance no distress - ENT atraumatic, normocephalic - Neck Neck exam: trachea midline - Respiratory normal expansion, clear to auscultation - Abdomen Abdomen: Present: bowel sounds present, soft, non tender - Integumentary no rash - Neurologic normal sensation - Musculoskeletal normal posture - Psychiatric oriented to time, oriented to person, oriented to place - Labs 02/08/19 05:59 02/08/19 05:59 Diabetes panel 02/07/19 02/08/19 Range/Units 14:41 05:59 Sodium 137 143 (136-145) mEq/L Potassium 3.7 3.7 (3.5-5.1) mEq/L Chloride 100 104 (98-107) mEq/L Carbon Dioxide 25 24 (23-29) mEq/L BUN 29 H 28 H (6-20) mg/dL Creatinine 0.70 0.82 (0.60-1.20) mg/dL Glucose 193 H 158 H (70-105) mg/dL Calcium 8.9 8.5 L (8.6-10.3) mg/dL AST 34 (13-39) Units/L ALT 46 (7-52) Units/L Alkaline Phosphatase 153 H (34-104) Units/L Albumin 4.2 (3.5-5.7) g/dL Calcium panel 02/07/19 02/08/19 Range/Units 14:41 05:59 Calcium 8.9 8.5 L (8.6-10.3) mg/dL Albumin 4.2 (3.5-5.7) g/dL Pituitary panel 02/07/19 02/08/19 Range/Units 14:41 05:59 Sodium 137 143 (136-145) mEq/L Potassium 3.7 3.7 (3.5-5.1) mEq/L Chloride 100 104 (98-107) mEq/L Carbon Dioxide 25 24 (23-29) mEq/L BUN 29 H 28 H (6-20) mg/dL Creatinine 0.70 0.82 (0.60-1.20) mg/dL Glucose 193 H 158 H (70-105) mg/dL Calcium 8.9 8.5 L (8.6-10.3) mg/dL Adrenal panel 02/07/19 02/08/19 Range/Units 14:41 05:59 Sodium 137 143 (136-145) mEq/L Potassium 3.7 3.7 (3.5-5.1) mEq/L Chloride 100 104 (98-107) mEq/L Carbon Dioxide 25 24 (23-29) mEq/L BUN 29 H 28 H (6-20) mg/dL Creatinine 0.70 0.82 (0.60-1.20) mg/dL Glucose 193 H 158 H (70-105) mg/dL Calcium 8.9 8.5 L (8.6-10.3) mg/dL Total Bilirubin 0.5 (0.3-1.0) mg/dL AST 34 (13-39) Units/L ALT 46 (7-52) Units/L Alkaline Phosphatase 153 H (34-104) Units/L Albumin 4.2 (3.5-5.7) g/dL Consult Discharge Plan - Plan Referrals: Lorena Velazquez MD [Primary Care Provider] - <Dale Heard - Last Filed: 02/08/19 14:11> Date of Encounter: 02/08/19 Objective Vital Signs - Last 8 Hours Temp Pulse Resp BP Pulse Ox 02/08/19 10:37 98.0 F 110 16 112/68 90 02/08/19 06:48 98.5 F 106 16 119/73 90 Intake and Output 02/07/19 02/08/19 02/08/19 23:59 07:59 15:59 Intake Total 150 / 150 Output Total 950 / 950 400 / 650 250 / 650 Balance -950 / -950 -250 / -500 -250 / -500 Intake: IV Fluids 150 / 150 Ofirmev 1,000 mg/100 ml 500 mg 50 / 50 In 50 ml @ 200 mls/hr IVPB ONCE ONE Rx#:[id number] Flagyl Premix 500 MG/100 ML 500 100 / 100 mg In 100 ml @ 100 mls/hr IVPB Q8HR FILI Rx#:[id number] Output: Urine 950 / 950 Catheter 400 / 650 250 / 650 Other: Stool Size Small Copious Stool Consistency loose loose liquid Stool Characteristics Normal for Patient Stool Color Yellow Brown Green # Bowel Movements 2 # Bowel Movement Diapers 1 1 Weight 57.6 kg Blood Glucose* 132 - Labs 02/08/19 05:59 02/08/19 05:59 Diabetes panel 02/07/19 02/08/19 Range/Units 14:41 05:59 Sodium 137 143 (136-145) mEq/L Potassium 3.7 3.7 (3.5-5.1) mEq/L Chloride 100 104 (98-107) mEq/L Carbon Dioxide 25 24 (23-29) mEq/L BUN 29 H 28 H (6-20) mg/dL Creatinine 0.70 0.82 (0.60-1.20) mg/dL Glucose 193 H 158 H (70-105) mg/dL Calcium 8.9 8.5 L (8.6-10.3) mg/dL AST 34 (13-39) Units/L ALT 46 (7-52) Units/L Alkaline Phosphatase 153 H (34-104) Units/L Albumin 4.2 (3.5-5.7) g/dL Calcium panel 02/07/19 02/08/19 Range/Units 14:41 05:59 Calcium 8.9 8.5 L (8.6-10.3) mg/dL Albumin 4.2 (3.5-5.7) g/dL Pituitary panel 02/07/19 02/08/19 Range/Units 14:41 05:59 Sodium 137 143 (136-145) mEq/L Potassium 3.7 3.7 (3.5-5.1) mEq/L Chloride 100 104 (98-107) mEq/L Carbon Dioxide 25 24 (23-29) mEq/L BUN 29 H 28 H (6-20) mg/dL Creatinine 0.70 0.82 (0.60-1.20) mg/dL Glucose 193 H 158 H (70-105) mg/dL Calcium 8.9 8.5 L (8.6-10.3) mg/dL Adrenal panel 02/07/19 02/08/19 Range/Units 14:41 05:59 Sodium 137 143 (136-145) mEq/L Potassium 3.7 3.7 (3.5-5.1) mEq/L Chloride 100 104 (98-107) mEq/L Carbon Dioxide 25 24 (23-29) mEq/L BUN 29 H 28 H (6-20) mg/dL Creatinine 0.70 0.82 (0.60-1.20) mg/dL Glucose 193 H 158 H (70-105) mg/dL Calcium 8.9 8.5 L (8.6-10.3) mg/dL Total Bilirubin 0.5 (0.3-1.0) mg/dL AST 34 (13-39) Units/L ALT 46 (7-52) Units/L Alkaline Phosphatase 153 H (34-104) Units/L Albumin 4.2 (3.5-5.7) g/dL - Attending Attestation I have personally performed a face to face evaluation on this patient. I have reviewed and agree with the care plan. History and Exam by me shows: The patient is seen and evaluated on morning rounds with the acute care surgery team. Her abdomen is soft and nontender. Nasogastric tube has a small amount of output. Small bowel follow-through was ordered after morning rounds. I reviewed the small bowel follow-through and this goes through to the colon. There does not appear to be a mechanical bowel obstruction. The nasogastric tube was removed and she was started on diet. Dale Heard MD FACS
--- NOTE | 2019-02-08 13:59 | Internal Med Progress Note ---
Hospitalist Progress Note - Encounter Date of Encounter: 02/08/19 Time of Encounter: 13:57 - Subjective Interval History: No acute events overnight. Patient went for barium swallow with follow through which was unremarkable. She has however passed copious stools afterwards. - Exam Vitals: Temp Pulse Resp BP Pulse Ox 36.7 C 110 16 112/68 90 02/08/19 10:37 02/08/19 10:37 02/08/19 10:37 02/08/19 10:37 02/08/19 10:37 Exam: GENERAL: No distress. Alert and Oriented HEENT: EOMI, PERRLA MOUTH: Edentulous mouth, moist mucosa NECK:No JVD, No lymph nodes. CHEST AND LUNGS: Normal breath sounds, no wheezes or crackles HEART: S1 and S2 normal, no murmurs ABDOMEN:Abdomen mildly disended. Soft and nontender. SKIN: Normal color, no rashes, no lesions EXTREMITIES: Atrophic lower extremities. With increased muscle tone NEUROLOGICAL: Normal cognition - Assessment and Plan (1) Abdominal pain Current Visit: Yes Status: Resolved Assessment and Plan: Pain has resolved with bowel movement. (2) Small bowel obstruction Current Visit: Yes Status: Acute Assessment and Plan: Patient has had multiple episodes of small bowel obstruction in the past I reviewed the current CT scan. Copious hard stools throughout the large bowel. Fluid-filled small bowel Patient had an unremarkable barium swallow with follow trough. She has passed copious stools after the barium swallow. Surgery recommends starting clear liquid diet (3) DVT prophylaxis Current Visit: No Status: Acute Assessment and Plan: SQ Heparin (4) CAD (coronary artery disease) Current Visit: No Status: Chronic Assessment and Plan: History of coronary artery disease with 3 stent placements in 2003 Will resume oral medications (5) Diabetes Current Visit: No Status: Chronic Assessment and Plan: Accuchecks. Sliding scale (6) HTN (hypertension) Current Visit: No Status: Chronic Assessment and Plan: Will resume oral meds When necessary hydralazine for elevated blood pressure (7) Enteritis Current Visit: Yes Status: Acute Assessment and Plan: WBC trending down CT scan showed mildly dilated fluid-filled loops of mid to distal small bowel. Likely to represent a small bowel enteritis Continue IV ciprofloxacin and metronidazole - Time Spent with Patient Total time spent is greater than 50% in coordination of care (as documented) at patient's floor/unit and/or counseling patient: Internal Medicine: Result - Labs CBC & Chem 7: 02/08/19 05:59 02/08/19 05:59 Labs: Short CBC 02/07/19 02/08/19 Range/Units 15:26 05:59 WBC 15.4 H 9.4 (4.3-11.1) K/mcL Hgb 13.3 12.1 (11.5-15.4) g/dL Hct 43.7 40.0 (35.3-44.9) % Plt Count 311 259 (140-400) K/mcL Neutrophils # 13.2 H 6.3 (1.6-8.9) K/mcL BMP 02/07/19 02/08/19 14:41 05:59 Sodium 137 143 Potassium 3.7 3.7 Chloride 100 104 Carbon Dioxide 25 24 BUN 29 H 28 H Creatinine 0.70 0.82 Glucose 193 H 158 H Calcium 8.9 8.5 L Liver Function 02/07/19 Range/Units 14:41 Total Bilirubin 0.5 (0.3-1.0) mg/dL Direct Bilirubin 0.2 (0.0-0.2) mg/dL AST 34 (13-39) Units/L ALT 46 (7-52) Units/L Alkaline Phosphatase 153 H (34-104) Units/L Albumin 4.2 (3.5-5.7) g/dL - Impressions Impressions Abdomen/Pelvis CT 02/07/19 12:25 IMPRESSION: 1. Mildly dilated fluid-filled loops of mid to distal small bowel. This likely represents a small bowel enteritis. Obstruction is less likely but cannot totally be excluded. 2. Mild bilateral hydronephrosis which is stable with the ileal conduit. 3. No intra-abdominal or pelvic ascites. 4. Hepatic steatosis. D/ / Douglas Woo MD / Douglas Woo MD Interpreting Provider: Douglas Woo MD X-Ray 02/07/19 18:26 IMPRESSION: 1. New gastric tube in appropriate position as above. 2. Nonobstructive bowel gas pattern in the included abdomen. D/ / Moses Sanchez MD / Moses Sanchez MD Interpreting Provider: Moses Sanchez MD Small Bowel X-Ray 02/08/19 07:37 IMPRESSION: Unremarkable small bowel follow through series. Likely broken ventricular peritoneal shunt catheter which is not continuous with the catheter extending from above. D/ / 02/08/2019 13:05:02 Delmy Urias MD / [email or web address] Interpreting Provider: Delmy Urias MD Consult Discharge Plan - Plan Referrals: Lorena Velazquez MD [Primary Care Provider] - (1) Abdominal pain Qualifiers: Abdominal location: generalized Qualified Code(s): R10.84 - Generalized abdominal pain (4) CAD (coronary artery disease) Qualifiers: Coronary Disease-Associated Artery/Lesion type: [place] artery [place] vs. transplanted heart: [place] heart Associated angina: without angina Qualified Code(s): I25.10 - Atherosclerotic heart disease of [place] coronary artery without angina pectoris (5) Diabetes Qualifiers: Diabetes mellitus type: type 2 Diabetes mellitus long-term insulin use: without long-term use Diabetes mellitus complication status: with hyperglycemia Qualified Code(s): E11.65 - Type 2 diabetes mellitus with hyperglycemia (6) HTN (hypertension) Qualifiers: Hypertension type: essential hypertension Qualified Code(s): I10 - Essential (primary) hypertension
[2019-02-08] MEDS: Aspirin Enteric Coated 81 MG Tablet PO SCH (16:33)
[2019-02-08] MEDS ORDERED: Acetaminophen IV 500 MG/50 ML INFUS..BTL IVPB ONE (20:29)
[2019-02-09] MEDS: MetroNIDAZOLE 500 MG/100 ML 500 MG/100 ML BAG IVPB SCH ×2 (00:58→10:28)
[2019-02-09] MEDS ORDERED: Melatonin 3 MG TABLET PO PRN (01:03)
--- NOTE | 2019-02-09 03:22 | Electrocardiograph Report ---
[facility] Test Date: 2019-02-07 Pat Name: Samara Mitchell Department: [id number] Room: 3A46 Gender: F Bottle Tester: : 1965 Requested By: Jt Lawton Order Number: [id number] Reading MD: Jun Velasco Measurements Intervals [place] Rate: 121 P: 57 SC: 127 QRS: 85 QRSD: 81 T: 59 QT: 318 QTc: 452 Interpretive Statements Sinus tachycardia Nonspecific T abnormalities, anterior leads Electronically Signed On 02-09-2019 3:21:00 EDT by Jun Velasco
[2019-02-09 05:28] LABS: Basophils # 0.1 K/mcL (0.0-0.2); Basophils % 0.5 %; Eosinophils # 0.2 K/mcL (0.0-0.6); Eosinophils % 2.1 %; Hematocrit 38.7 % (35.3-44.9); Hemoglobin 11.5 g/dL (11.5-15.4); Immature Granulocytes % 0.2 % (0-4); Lymphocytes # 2.6 K/mcL (0.6-4.6); Lymphocytes % 28.1 %; Mean Corpuscular HGB Conc 29.7 g/dL (31.6-35.5); Mean Corpuscular Hemoglobin 26.4 pg (28.0-33.3); Mean Corpuscular Volume 88.8 fL (83.0-100.0); Monocytes # 0.7 K/mcL (0.0-1.3); Monocytes % 7.2 %; Neutrophils # 5.8 K/mcL (1.6-8.9); Platelet Count 279 K/mcL (140-400); Red Blood Count 4.36 M/mcL (3.82-4.97); Red Cell Distribution Width 16.5 % (11.5-14.5); Segmented Neutrophils % 61.9 %; White Blood Count 9.4 K/mcL (4.3-11.1)
[2019-02-09 05:49] LABS: BUN/Creatinine Ratio 20 (6-26); Blood Urea Nitrogen 17 mg/dL (6-20); Carbon Dioxide 23 mEq/L (23-29); Chloride 102 mEq/L (98-107); Glucose 132 mg/dL (70-105); Osmolality,Calculated 295 (280-300); Potassium 3.2 mEq/L (3.5-5.1); Sodium 141 mEq/L (136-145); eGFR For African Americans > 60 (> 60); eGFR For Non-African Americans > 60 (> 60)
--- NOTE | 2019-02-09 08:23 | AcuteCareSurgery Progress Note ---
Date of Encounter: 02/09/19 Time of Encounter: 08:21 - Assessment and Plan (1) Abdominal pain Current Visit: Yes Status: Resolved SBFT 02/08/2019 unremarkable and and associated copious amounts of bowel movements. Patient states her pain is completely resolved. She is hungry and would like to eat and go home. From a surgical standpoint her diet can be advanced as tolerated. No surgical intervention as indicated. Surgery will sign off at this time. Thank you for allowing us to participate in Ms. Mitchell care. There is no surgical follow-up indicated. Qualifiers: Abdominal location: generalized Qualified Code(s): R10.84 - Generalized abdominal pain Subjective Patient reports: no new complaints, feels better, tolerating liquids well, voiding w/o difficulty, flatus, bowel movement, afebrile Objective Vital Signs - Last 8 Hours Temp Pulse Resp BP Pulse Ox 02/09/19 06:53 98.3 F 101 16 118/81 91 02/09/19 03:43 98.4 F 101 18 109/72 93 Intake and Output 02/08/19 02/09/19 02/09/19 23:59 07:59 15:59 Intake Total 980 / 1430 750 / 750 Output Total 650 / 1300 350 / 350 Balance 330 / 130 400 / 400 Intake: IV Fluids 100 / 550 550 / 550 Ofirmev 1,000 mg/100 ml 500 mg 50 / 50 In 50 ml @ 200 mls/hr IVPB ONCE ONE Rx#:[id number] Cipro Premix 400 MG/200 ML 400 400 / 400 mg In 200 ml @ 200 mls/hr IVPB Q12HR [facility] Rx#:[id number] Flagyl Premix 500 MG/100 ML 500 100 / 300 100 / 100 mg In 100 ml @ 100 mls/hr IVPB Q8HR [facility] Rx#:[id number] Oral 880 / 880 200 / 200 Output: Catheter 650 / 1300 350 / 350 Other: Meal Dinner Percent of Meal Consumed 25% Weight 56.6 kg Patient Weight 02/09/19 23:59 Weight 56.6 kg - General physical appearance no distress, no pain - Abdomen Abdomen: Present: bowel sounds present, soft, non tender - Psychiatric oriented to time, oriented to person, oriented to place - Labs 02/09/19 04:31 02/09/19 04:31 Diabetes panel 02/09/19 Range/Units 04:31 Sodium 141 (136-145) mEq/L Potassium 3.2 L (3.5-5.1) mEq/L Chloride 102 (98-107) mEq/L Carbon Dioxide 23 (23-29) mEq/L BUN 17 (6-20) mg/dL Creatinine 0.83 (0.60-1.20) mg/dL Glucose 132 H (70-105) mg/dL Calcium 9.0 (8.6-10.3) mg/dL Calcium panel 02/09/19 Range/Units 04:31 Calcium 9.0 (8.6-10.3) mg/dL Pituitary panel 02/09/19 Range/Units 04:31 Sodium 141 (136-145) mEq/L Potassium 3.2 L (3.5-5.1) mEq/L Chloride 102 (98-107) mEq/L Carbon Dioxide 23 (23-29) mEq/L BUN 17 (6-20) mg/dL Creatinine 0.83 (0.60-1.20) mg/dL Glucose 132 H (70-105) mg/dL Calcium 9.0 (8.6-10.3) mg/dL Adrenal panel 02/09/19 Range/Units 04:31 Sodium 141 (136-145) mEq/L Potassium 3.2 L (3.5-5.1) mEq/L Chloride 102 (98-107) mEq/L Carbon Dioxide 23 (23-29) mEq/L BUN 17 (6-20) mg/dL Creatinine 0.83 (0.60-1.20) mg/dL Glucose 132 H (70-105) mg/dL Calcium 9.0 (8.6-10.3) mg/dL Consult Discharge Plan - Plan Referrals: Lorena Velazquez MD [Primary Care Provider] -
[2019-02-09 10:12] VITALS: BP 108/64
--- NOTE | 2019-02-09 10:21 | Discharge Summary ---
Date of Encounter: 02/09/19 Time of Encounter: 10:18 - Discharge Diagnosis (1) Small bowel obstruction Priority: Primary Status: Acute (2) Abdominal pain Priority: Secondary Status: Resolved Qualifiers: Abdominal location: generalized Qualified Code(s): R10.84 - Generalized abdominal pain (3) DVT prophylaxis Priority: Secondary Status: Acute (4) CAD (coronary artery disease) Priority: Secondary Status: Chronic Qualifiers: Coronary Disease-Associated Artery/Lesion type: [place] artery [place] vs. transplanted heart: [place] heart Associated angina: without angina Qualified Code(s): I25.10 - Atherosclerotic heart disease of [place] coronary artery without angina pectoris (5) Diabetes Priority: Secondary Status: Chronic Qualifiers: Diabetes mellitus type: type 2 Diabetes mellitus terminologist insulin use: without fdc use Diabetes mellitus complication status: with hyperglycemia Qualified Code(s): E11.65 - Type 2 diabetes mellitus with hyperglycemia (6) HTN (hypertension) Priority: Secondary Status: Chronic Qualifiers: Hypertension type: essential hypertension Qualified Code(s): I10 - Essential (primary) hypertension (7) Enteritis Priority: Secondary Status: Acute Hospital course: Ms. Mitchell is a 54 year old female with a PMHx of Hydrocephalus s/p i ntraabdominal shunt, HTN, CAD s/p stents and recurrent SBO. She presented with abdominal pain, nausea and vomiting and a diagnosis of SBO was made based on CT findings. CT also showed a large colonic stool burden which could explain her presentation. She spontaneously passed stool after her barium sallw with follow through and is currently doing well. She will be discharged home with a 5 day course of cipro and metronidazole. Discharge discussed with: patient, nurse, case management - Time Spent with Patient Total time spent providing and/or coordinating discharge services: Time spent: Greater than 30 minutes (40) - Discharge Medications Prescriptions: New Ciprofloxacin [Cipro] 250 mg PO BID 5 Days #10 tablet metroNIDAZOLE [Flagyl] 500 mg PO BID 5 Days #10 tablet Continued Aspirin Enteric Coated [Aspirin EC] 81 mg PO QAM Aripiprazole [Abilify] 15 mg PO QPM Omeprazole [PriLOSEC] 20 mg PO BID #0 ALPRAZolam [Xanax 0.5 MG Tablet] 0.5 mg PO HS Polyethylene Glycol 3350 [MiraLAX] 17 gm PO DAILY PRN PRN Reason: Constipation Multivitamin [Zoo Chews] 1 tab PO QAM Pravastatin Sodium [Pravachol] 20 mg PO HS Oxybutynin Chloride [Ditropan XL] 10 mg PO QAM Lisinopril-HCTZ 10-12.5 [Prinzide 10-12.5] 1 tab PO QAM Vit C/E/Zn/Coppr/Lutein/Zeaxan [Preservision Areds 2 Softgel] 1 cap PO BID Carboxymethylcellulose Sodium [Refresh Plus] 1 each OP DAILY PRN PRN Reason: dryness Dextran 70/Hypromellose [Artificial Tears] 1 drop BOTH EYES DAILY PRN PRN Reason: eye irritation Promethazine/Dextromethorphan [Promethazine-Dm Syrup] 5 ml PO Q6H Promethazine [Phenergan] 25 mg PO Q12H PRN PRN Reason: Nausea Diclofenac Sodium [Voltaren] 1 applic TP DAILY PRN PRN Reason: Pain Lactobacillus Acidophilus [Acidophilus Probiotic] 1 cap PO QAM Acetaminophen [Tylenol Arthritis] 1,300 mg PO DAILY PRN PRN Reason: Pain Bisacodyl [Gentle Laxative] 10 mg RC Q8H PRN PRN Reason: Constipation Nystatin POWDER [Nystop] 1 appl TP BID PRN PRN Reason: IRRITATION Cyclosporine [Restasis] 1 drop OP Q12H PRN PRN Reason: Dry Eyes Fluconazole [Diflucan] 150 mg PO TH Metoclopramide [Reglan] 5 mg PO Q6HR Home Medications: Aripiprazole [Abilify] 15 mg PO QPM 05/14/15 [History] Aspirin Enteric Coated [Aspirin EC] 81 mg PO QAM 05/14/15 [History] Omeprazole [PriLOSEC] 20 mg PO BID #0 07/03/15 [History] ALPRAZolam [Xanax 0.5 MG Tablet] 0.5 mg PO HS 01/26/16 [History] Multivitamin [Zoo Chews] 1 tab PO QAM 01/26/16 [History] Polyethylene Glycol 3350 [MiraLAX] 17 gm PO DAILY PRN 01/26/16 [History] Pravastatin Sodium [Pravachol] 20 mg PO HS 01/26/16 [History] Oxybutynin Chloride [Ditropan XL] 10 mg PO QAM 03/02/17 [History] Lisinopril-HCTZ 10-12.5 [Prinzide 10-12.5] 1 tab PO QAM 11/16/17 [History] Acetaminophen [Tylenol Arthritis] 1,300 mg PO DAILY PRN 11/08/18 [History] Bisacodyl [Gentle Laxative] 10 mg RC Q8H PRN 11/08/18 [History] Carboxymethylcellulose Sodium [Refresh Plus] 1 each OP DAILY PRN 11/08/18 [History] Cyclosporine [Restasis] 1 drop OP Q12H PRN 11/08/18 [History] Dextran 70/Hypromellose [Artificial Tears] 1 drop BOTH EYES DAILY PRN 11/08/18 [History] Diclofenac Sodium [Voltaren] 1 applic TP DAILY PRN 11/08/18 [History] Lactobacillus Acidophilus [Acidophilus Probiotic] 1 cap PO QAM 11/08/18 [History] Nystatin POWDER [Nystop] 1 appl TP BID PRN 11/08/18 [History] Promethazine [Phenergan] 25 mg PO Q12H PRN 11/08/18 [History] Promethazine/Dextromethorphan [Promethazine-Dm Syrup] 5 ml PO Q6H 11/08/18 [History] Vit C/E/Zn/Coppr/Lutein/Zeaxan [Preservision Areds 2 Softgel] 1 cap PO BID 11/08/18 [History] Ciprofloxacin [Cipro] 250 mg PO BID 5 Days #10 tablet 02/09/19 [Rx] Fluconazole [Diflucan] 150 mg PO TH 02/09/19 [History] Metoclopramide [Reglan] 5 mg PO Q6HR 02/09/19 [History] metroNIDAZOLE [Flagyl] 500 mg PO BID 5 Days #10 tablet 02/09/19 [Rx] Allergies/Adverse Reactions: Allergy/AdvReac Type Severity Reaction Status Date / Time alcohol Allergy Rash Verified 09/16/18 01:31 Amoxicillin [From Augmentin] Allergy Rash Verified 09/16/18 01:31 cephalexin Allergy Rash Verified 09/16/18 01:31 clarithromycin [From Biaxin] Allergy Rash Verified 09/16/18 01:31 clavulanic acid Allergy Rash Verified 09/16/18 01:31 [From Augmentin] doxycycline Allergy Rash Verified 09/16/18 01:31 Ergotamine [From Cafergot] Allergy Rash Verified 09/16/18 01:31 nitrofurantoin Allergy Rash Verified 09/16/18 01:31 [From Macrodantin] oxycodone [From Percocet] Allergy Rash Verified 09/16/18 01:31 Sulfa (Sulfonamide Allergy Rash Verified 09/16/18 01:31 Antibiotics) sulfabenzamide Allergy Rash Verified 09/16/18 01:31 hydromorphone [From Dilaudid] AdvReac Headache Verified 09/16/18 01:31 morphine AdvReac Headache Verified 09/16/18 01:31 Date of admission: 02/07/19 17:17 Primary care physician: Lorena Velazquez Consults: 02/07/19 16:42 Consult to Surgery [CONS] Stat Consulting Provider: Acute Care Surgery Reason for Consult: enteritis vs SBO Call Completed: Yes 02/08/19 04:03 Consult to Directory Clerk [CONS] Routine Reason for SW Consult: Pt has home health. 02/08/19 04:04 Consult to Wound Care [CONS] Routine Reason for Consult: Pt states she sees wound care clinic outpatient. Call Completed: No - Constitutional Vitals: Temp Pulse Resp BP Pulse Ox 37.3 C 82 18 108/64 95 02/09/19 10:09 02/09/19 10:09 02/09/19 10:09 02/09/19 10:09 02/09/19 10:09 Exam: GENERAL: Not in distress. Alert and Oriented HEENT: EOMI, PERRLA MOUTH: Moist oral mucosa NECK:No JVD, No lymph nodes. CHEST AND LUNGS: Normal breath sounds, no wheezes or crackles HEART: S1 and S2 normal, no murmurs ABDOMEN: Soft, nontender, no organomegaly SKIN: Normal color, no rahses, no lesions EXTREMITIES: Spastic atrophic lower extremities NEUROLOGICAL: Normal cognition - Patient Status Disposition: Home Health Service Condition: Good Overall status at discharge: patient is back to baseline - Discharge Instructions Follow Up With: Lorena Velazquez MD [Primary Care Provider] - - Diet and Activity Activity: increase activity as tolerated Diet: advance to your usual diet
[2019-02-09] MEDS: Aspirin Enteric Coated 81 MG Tablet PO SCH (10:28)
--- NOTE | 2019-02-09 10:35 | Physician Discharge Referral ---
Home Health/Hosp Referral Info Transfer to: Home Health - Diagnosis (1) Small bowel obstruction Priority: Primary Status: Acute (2) Abdominal pain Priority: Secondary Status: Resolved (3) DVT prophylaxis Priority: Secondary Status: Acute (4) CAD (coronary artery disease) Priority: Secondary Status: Chronic (5) Diabetes Priority: Secondary Status: Chronic (6) HTN (hypertension) Priority: Secondary Status: Chronic (7) Enteritis Priority: Secondary Status: Acute - Respiratory Orders Smoking Cessation: Smoking cessation has been advised. For more information, call the [place] [facility] Quit Line at [phone]. - Diet/Nutrition Diet/Nutrition Orders: Regular - Activity Activity Orders: Up ad brian - Services Needed Following services are medically necessary services: Nursing, Home Health Aide - Transfer Medications Prescriptions: Ciprofloxacin [Cipro] 250 mg PO BID 5 Days #10 tablet metroNIDAZOLE [Flagyl] 500 mg PO BID 5 Days #10 tablet Home Medications: Aripiprazole [Abilify] 15 mg PO QPM 05/14/15 [History] Aspirin Enteric Coated [Aspirin EC] 81 mg PO QAM 05/14/15 [History] Omeprazole [PriLOSEC] 20 mg PO BID #0 07/03/15 [History] ALPRAZolam [Xanax 0.5 MG Tablet] 0.5 mg PO HS 01/26/16 [History] Multivitamin [Zoo Chews] 1 tab PO QAM 01/26/16 [History] Polyethylene Glycol 3350 [MiraLAX] 17 gm PO DAILY PRN 01/26/16 [History] Pravastatin Sodium [Pravachol] 20 mg PO HS 01/26/16 [History] Oxybutynin Chloride [Ditropan XL] 10 mg PO QAM 03/02/17 [History] Lisinopril-HCTZ 10-12.5 [Prinzide 10-12.5] 1 tab PO QAM 11/16/17 [History] Acetaminophen [Tylenol Arthritis] 1,300 mg PO DAILY PRN 11/08/18 [History] Bisacodyl [Gentle Laxative] 10 mg RC Q8H PRN 11/08/18 [History] Carboxymethylcellulose Sodium [Refresh Plus] 1 each OP DAILY PRN 11/08/18 [History] Cyclosporine [Restasis] 1 drop OP Q12H PRN 11/08/18 [History] Dextran 70/Hypromellose [Artificial Tears] 1 drop BOTH EYES DAILY PRN 11/08/18 [History] Diclofenac Sodium [Voltaren] 1 applic TP DAILY PRN 11/08/18 [History] Lactobacillus Acidophilus [Acidophilus Probiotic] 1 cap PO QAM 11/08/18 [History] Nystatin POWDER [Nystop] 1 appl TP BID PRN 11/08/18 [History] Promethazine [Phenergan] 25 mg PO Q12H PRN 11/08/18 [History] Promethazine/Dextromethorphan [Promethazine-Dm Syrup] 5 ml PO Q6H 11/08/18 [History] Vit C/E/Zn/Coppr/Lutein/Zeaxan [Preservision Areds 2 Softgel] 1 cap PO BID 11/08/18 [History] Ciprofloxacin [Cipro] 250 mg PO BID 5 Days #10 tablet 02/09/19 [Rx] Fluconazole [Diflucan] 150 mg PO TH 02/09/19 [History] Metoclopramide [Reglan] 5 mg PO Q6HR 02/09/19 [History] metroNIDAZOLE [Flagyl] 500 mg PO BID 5 Days #10 tablet 02/09/19 [Rx] Allergies/Adverse Reactions: Allergy/AdvReac Type Severity Reaction Status Date / Time alcohol Allergy Rash Verified 09/16/18 01:31 Amoxicillin [From Augmentin] Allergy Rash Verified 09/16/18 01:31 cephalexin Allergy Rash Verified 09/16/18 01:31 clarithromycin [From Biaxin] Allergy Rash Verified 09/16/18 01:31 clavulanic acid Allergy Rash Verified 09/16/18 01:31 [From Augmentin] doxycycline Allergy Rash Verified 09/16/18 01:31 Ergotamine [From Cafergot] Allergy Rash Verified 09/16/18 01:31 nitrofurantoin Allergy Rash Verified 09/16/18 01:31 [From Macrodantin] oxycodone [From Percocet] Allergy Rash Verified 09/16/18 01:31 Sulfa (Sulfonamide Allergy Rash Verified 09/16/18 01:31 Antibiotics) sulfabenzamide Allergy Rash Verified 09/16/18 01:31 hydromorphone [From Dilaudid] AdvReac Headache Verified 09/16/18 01:31 morphine AdvReac Headache Verified 09/16/18 01:31 Certification: Further, I certify that my clinical findings support that this patient is homebound (i.e. absences from home require considerable and taxing effort and are for medical reasons or muslim services or infrequently or short duration when for other reasons) because: Homebound Reason: Patient requires assistance of a person or device to safely leave home Attestation: My signature below is to certify that this patient is under my care and that I, or nurse practitioner, or a physician's cardiovascular physician assistant working with me, has a [id number] encounter with this patient.
[2019-02-09] MEDS ORDERED: metroNIDAZOLE 500 MG TABLET PO SCH (21:00)
== END 2019-02-09 12:08 | disposition home health service (06) | DRG 389 ==
LOC: EMEROOARM 12:14 → SUATTDRO 17:17 → 3ANU 17:17
PROVIDERS: ADMIT Internal Medicine; ATTEND Internal Medicine

== ENCOUNTER 2019-09-25 18:30 | Inpatient (IN) ==
[2019-09-25 20:15] LABS: INR 1.1; Prothrombin Time 12.6 Seconds (9.4-12.1)
[2019-09-25 20:17] LABS: Activated Partial Thrombo Time 27.7 Seconds (26.0-36.0)
[2019-09-25 20:31] LABS: Alanine Aminotransferase 38 Units/L (7-52); Albumin 4.9 g/dL (3.5-5.7); Albumin/Globulin Ratio 1.2 (1.1-2.2); Alkaline Phosphatase 154 Units/L (34-104); Aspartate Amino Transferase 15 Units/L (13-39); BUN/Creatinine Ratio 19 (6-26); Bilirubin,Total 0.6 mg/dL (0.3-1.0); Blood Urea Nitrogen 71 mg/dL (6-20); Calcium 9.8 mg/dL (8.6-10.3); Carbon Dioxide 15 mEq/L (23-29); Chloride 88 mEq/L (98-107); Glucose 185 mg/dL (70-105); Lipase 12 Units/L (11-82); Osmolality,Calculated 298 (280-300); Sodium 131 mEq/L (136-145); Total Protein 8.9 g/dL (6.4-8.9); Troponin I < 0.03 ng/mL (< 0.04); eGFR For African Americans 15 (> 60); eGFR For Non-African Americans 13 (> 60)
[2019-09-25 20:42] LABS: Thyroid Stimulating Hormone 1.674 mcIU/mL (0.340-5.600)
[2019-09-25] MEDS ORDERED: Ondansetron 4 MG/2 ML VIAL IVP ONE (21:05)
[2019-09-25] MEDS ORDERED: 0.9 % Sodium Chloride 1,000 ML IVC ONE ×2 (21:05→23:08)
[2019-09-25 21:09] LABS: Basophils # 0.1 K/mcL (0.0-0.2); Basophils % 0.4 %; Hemoglobin 16.2 g/dL (11.5-15.4); Immature Granulocytes % 0.3 % (0-4); Lymphocytes % 16.4 %; Mean Corpuscular HGB Conc 31.2 g/dL (31.6-35.5); Mean Corpuscular Hemoglobin 28.1 pg (28.0-33.3); Mean Corpuscular Volume 90.1 fL (83.0-100.0); Mean Platelet Volume 10.4 fL (9.4-12.4); Monocytes # 2.2 K/mcL (0.0-1.3); Monocytes % 18.1 %; Neutrophils # 7.8 K/mcL (1.6-8.9); Platelet Count 370 K/mcL (140-400); Red Blood Count 5.77 M/mcL (3.82-4.97); Red Cell Distribution Width 15.2 % (11.5-14.5); Segmented Neutrophils % 64.8 %
[2019-09-25 21:14] LABS: Bilirubin,Urine Negative (Negative); Blood,Urine Large (Negative); Clarity,Urine Cloudy (Clear); Color,Urine Yellow (Yellow); Glucose,Urine (UA) Normal (Normal); Ketones,Urine Negative (Negative); Leukocyte Esterase,Urine Moderate (Negative); Nitrite,Urine Negative (Negative); Protein,Urine 30 mg/dL (Neg-Trace); Specific Gravity,Urine < 1.005 (1.010-1.025); Urobilinogen,Urine Normal (Normal)
[2019-09-25 21:21] LABS: Bacteria,Urine Many per hpf (None-Few); Hyaline Casts,Urine None Seen per lpf (None-Few); Squamous Epithelial Cell,Urine Many per lpf (None-Few)
[2019-09-25 21:26] LABS: Large Platelets Present (Not Present); Platelet Estimate Normal (Normal)
[2019-09-25 21:40] LABS: RBC,Urine 0-3 per hpf (0-3); Renal Epithelial Cells,Urine Few per hpf (None-Few)
[2019-09-25] MEDS ORDERED: Naloxone 0.4 MG/ML INJ IVP PRN (23:54)
[2019-09-25 23:59] LABS: Creatine Kinase 61 Units/L (30-223)
[2019-09-26] MEDS ORDERED: Ondansetron 4 MG/2 ML VIAL IVP PRN (00:31)
[2019-09-26] MEDS ORDERED: Chloraseptic Spray 177 ML BOTTLE MM PRN (00:34)
[2019-09-26 04:03] LABS: Hematocrit 45.4 % (35.3-44.9); Mean Corpuscular Volume 90.3 fL (83.0-100.0); Mean Platelet Volume 10.3 fL (9.4-12.4); Platelet Count 245 K/mcL (140-400); Red Blood Count 5.03 M/mcL (3.82-4.97); Red Cell Distribution Width 15.3 % (11.5-14.5); White Blood Count 6.9 K/mcL (4.3-11.1)
[2019-09-26 04:14] LABS: Potassium 3.6 mEq/L (3.5-5.1)
[2019-09-26 04:20] LABS: Hemoglobin 13.6 g/dL (11.5-15.4)
[2019-09-26 05:06] LABS: Lymphocytes # 1.8 K/mcL (0.6-4.6); Monocytes # 0.3 K/mcL (0.0-1.3); Neutrophils # 4.3 K/mcL (1.6-8.9)
[2019-09-26 05:07] LABS: Platelet Estimate Normal (Normal)
[2019-09-26] MEDS ORDERED: 0.9 % Sodium Chloride 1,000 ML IVC ONE (07:52)
[2019-09-26] MEDS ORDERED: Vancomycin 1 EACH in 0.9 % Sodium Chloride 250 ML IVPB SCH (08:19)
[2019-09-26] MEDS: MetroNIDAZOLE 500 MG/100 ML 500 MG/100 ML BAG IVPB SCH ×2 (08:21→12:22)
[2019-09-26] MEDS ORDERED: Albumin 25% 25gram/100mL 25 GM/100 ML IV.SOLN IVPB ONE (09:00)
[2019-09-26] MEDS ORDERED: Albumin 25% 25gram/100mL 25 GM/100 ML IV.SOLN ONE (09:02)
[2019-09-26] MEDS ORDERED: Ringers Solution, Lactated 500 ML IVC ONE ×2 (12:22→14:12)
[2019-09-26] MEDS: Meropenem 500 MG in Water for inj. (sterile) 10 ML IVP SCH (12:22)
[2019-09-26] MEDS ORDERED: *HR* Norepinephrine 4 MG/4 ML VIAL IVC ONE (13:30)
[2019-09-26] MEDS ORDERED: *HR* Dextrose 50 % in Water (Syg) 50 ML SYRINGE IVP PRN (14:22)
[2019-09-26] MEDS ORDERED: Dextrose Gel 15 GM/37.5 ML TUBE PO PRN ×2 (14:22)
[2019-09-26] MEDS ORDERED: D5% in Water 1,000 ML IVC PRN (14:22)
[2019-09-26] MEDS ORDERED: DICLOFENAC SODIUM TP PRN (14:55)
[2019-09-26] MEDS ORDERED: Cyclosporine [Restasis] 1 DROP OP PRN (14:55)
[2019-09-26] MEDS ORDERED: Trolamine Salicylate/Aloe Vera 85 APPL/85 GM TUBE TP PRN (14:55)
[2019-09-26] MEDS ORDERED: CLEAR EYES NATURAL TEARS 15 ML BOTTLE BOTH EYES PRN (14:55)
[2019-09-26] MEDS ORDERED: *HR* LORazepam 2 MG/ML VIAL IVP PRN (14:57)
[2019-09-26 15:29] LABS: Protein/Creatinine Ratio,Urine 1.82 mg/mg (0.00-0.20)
[2019-09-26] MEDS: Insulin LISPRO 300 UNITS/3 ML VIAL SQ SCH ×2 (17:17→23:40)
[2019-09-26 17:28] LABS: Calcium 7.8 mg/dL (8.6-10.3)
[2019-09-26] MEDS: Hydrocortisone Rectal 2.5% CRM 28 GM TUBE RC SCH (20:16)
[2019-09-26] MEDS: *HR* Heparin 5,000 UNIT/ML VIAL SQ SCH (21:11)
[2019-09-27 03:42] LABS: Hematocrit 34.4 % (35.3-44.9); Mean Corpuscular HGB Conc 29.9 g/dL (31.6-35.5); Mean Corpuscular Hemoglobin 27.3 pg (28.0-33.3); Mean Corpuscular Volume 91.2 fL (83.0-100.0); Platelet Count 206 K/mcL (140-400); Red Blood Count 3.77 M/mcL (3.82-4.97); Red Cell Distribution Width 15.1 % (11.5-14.5); White Blood Count 6.3 K/mcL (4.3-11.1)
[2019-09-27 03:44] LABS: Hemoglobin 10.3 g/dL (11.5-15.4)
[2019-09-27 04:03] LABS: Calcium 8.2 mg/dL (8.6-10.3); Magnesium 2.4 mg/dL (1.6-2.6)
[2019-09-27] MEDS: Insulin LISPRO 300 UNITS/3 ML VIAL SQ SCH ×3 (05:25→17:44)
[2019-09-27] MEDS: *HR* Heparin 5,000 UNIT/ML VIAL SQ SCH ×3 (05:25→20:20)
[2019-09-27] MEDS: Meropenem 500 MG in Water for inj. (sterile) 10 ML IVP SCH ×2 (07:43→20:18)
[2019-09-27] MEDS: Hydrocortisone Rectal 2.5% CRM 28 GM TUBE RC SCH (07:45)
[2019-09-27] MEDS ORDERED: Pantoprazole 40 MG VIAL IVP SCH (09:00)
[2019-09-27] MEDS ORDERED: Naloxone 0.4 MG/ML INJ IVP PRN (09:15)
[2019-09-27] MEDS ORDERED: Ondansetron 4 MG/2 ML VIAL IVP PRN (09:15)
[2019-09-27] MEDS ORDERED: D5% in Water 1,000 ML IVC PRN (09:15)
[2019-09-27] MEDS ORDERED: *HR* Dextrose 50 % in Water (Syg) 50 ML SYRINGE IVP PRN (09:15)
[2019-09-27] MEDS ORDERED: CLEAR EYES NATURAL TEARS 15 ML BOTTLE BOTH EYES PRN (09:15)
[2019-09-27] MEDS ORDERED: Chloraseptic Spray 177 ML BOTTLE MM PRN (09:15)
[2019-09-27] MEDS ORDERED: *HR* LORazepam 2 MG/ML VIAL IVP PRN (09:15)
[2019-09-27] MEDS ORDERED: Trolamine Salicylate/Aloe Vera 85 APPL/85 GM TUBE TP PRN (09:15)
[2019-09-27] MEDS ORDERED: Dextrose Gel 15 GM/37.5 ML TUBE PO PRN ×2 (09:15)
[2019-09-27] MEDS ORDERED: Ringers Solution, Lactated 1,000 ML IVC SCH (09:45)
[2019-09-27] MEDS ORDERED: Potassium Chloride 40 MEQ, Lidocaine 1% 2 ML in 0.9 % Sodium Chloride 500 ML IVPB ONE (10:39)
[2019-09-27] MEDS ORDERED: *HR* Metoprolol 5 MG/5 ML VIAL IVP PRN (12:16)
[2019-09-27] MEDS ORDERED: Acetaminophen IV 500 MG/50 ML INFUS..BTL IVPB PRN (13:58)
[2019-09-28] MEDS: Hydrocortisone Rectal 2.5% CRM 28 GM TUBE RC SCH ×3 (00:17→20:20)
[2019-09-28] MEDS: Insulin LISPRO 300 UNITS/3 ML VIAL SQ SCH ×3 (00:49→21:36)
[2019-09-28 01:38] LABS: Hematocrit 33.4 % (35.3-44.9); Hemoglobin 9.8 g/dL (11.5-15.4); Mean Corpuscular HGB Conc 29.3 g/dL (31.6-35.5); Mean Corpuscular Hemoglobin 27.5 pg (28.0-33.3); Mean Corpuscular Volume 93.8 fL (83.0-100.0); Mean Platelet Volume 10.4 fL (9.4-12.4); Platelet Count 199 K/mcL (140-400); Red Blood Count 3.56 M/mcL (3.82-4.97); Red Cell Distribution Width 15.8 % (11.5-14.5); White Blood Count 5.8 K/mcL (4.3-11.1)
[2019-09-28 01:53] LABS: Magnesium 2.2 mg/dL (1.6-2.6); Phosphorous 2.4 mg/dL (2.7-4.5)
[2019-09-28 02:02] LABS: BUN/Creatinine Ratio 47 (6-26); Blood Urea Nitrogen 43 mg/dL (6-20); Calcium 8.7 mg/dL (8.6-10.3); Carbon Dioxide 19 mEq/L (23-29); Chloride 124 mEq/L (98-107); Glucose 101 mg/dL (70-105); Osmolality,Calculated 327 (280-300); Potassium 3.8 mEq/L (3.5-5.1); Sodium 153 mEq/L (136-145); eGFR For African Americans > 60 (> 60); eGFR For Non-African Americans > 60 (> 60)
[2019-09-28] MEDS: *HR* Heparin 5,000 UNIT/ML VIAL SQ SCH ×3 (05:29→20:17)
[2019-09-28] MEDS ORDERED: D5% in Water 1,000 ML IVC SCH (08:00)
[2019-09-28] MEDS ORDERED: Pantoprazole 40 MG VIAL IVP SCH (09:00)
[2019-09-28] MEDS: Meropenem 500 MG in Water for inj. (sterile) 10 ML IVP SCH (09:58)
[2019-09-28] MEDS ORDERED: Aminoglycoside Consult 1 EACH MC ONE (15:46)
[2019-09-28] MEDS ORDERED: Acetaminophen 325 MG TABLET PO ONE (19:37)
[2019-09-28] MEDS: Ertapenem 1,000 MG in 0.9 % Sodium Chloride Mini Bag 100 ML IVPB SCH (20:17)
[2019-09-29 02:35] LABS: Basophils % 0.6 %; Platelet Count 185 K/mcL (140-400); White Blood Count 6.9 K/mcL (4.3-11.1)
[2019-09-29 02:36] LABS: Eosinophils # 0.1 K/mcL (0.0-0.6); Immature Granulocytes % 1.4 % (0-4); Lymphocytes # 3.4 K/mcL (0.6-4.6); Lymphocytes % 49.3 %; Mean Corpuscular Hemoglobin 27.3 pg (28.0-33.3); Mean Corpuscular Volume 93.9 fL (83.0-100.0); Mean Platelet Volume 10.3 fL (9.4-12.4); Monocytes # 0.7 K/mcL (0.0-1.3); Monocytes % 10.7 %; Neutrophils # 2.5 K/mcL (1.6-8.9); Red Cell Distribution Width 15.4 % (11.5-14.5)
[2019-09-29 02:51] LABS: Magnesium 1.7 mg/dL (1.6-2.6); Phosphorous 2.2 mg/dL (2.7-4.5)
[2019-09-29 02:54] LABS: BUN/Creatinine Ratio 38 (6-26); Blood Urea Nitrogen 27 mg/dL (6-20); Calcium 8.1 mg/dL (8.6-10.3); Carbon Dioxide 22 mEq/L (23-29); Chloride 114 mEq/L (98-107); Glucose 78 mg/dL (70-105); Osmolality,Calculated 296 (280-300); Potassium 3.2 mEq/L (3.5-5.1); Sodium 141 mEq/L (136-145); eGFR For African Americans > 60 (> 60); eGFR For Non-African Americans > 60 (> 60)
[2019-09-29 03:13] LABS: Hypochromasia Present (Not Present); Platelet Estimate Normal (Normal)
[2019-09-29] MEDS: Acetaminophen 325 MG TABLET PO PRN ×2 (05:21→20:54)
[2019-09-29] MEDS: *HR* Heparin 5,000 UNIT/ML VIAL SQ SCH ×3 (05:25→20:44)
[2019-09-29] MEDS ORDERED: CLEAR EYES NATURAL TEARS 15 ML BOTTLE OP PRN (07:26)
[2019-09-29] MEDS ORDERED: Bisacodyl 10 MG RECTAL SUPPOSITORY RC PRN (07:26)
[2019-09-29] MEDS ORDERED: polyethylene glycoL 3350 17 GM POWD.PACK PO PRN (07:26)
[2019-09-29] MEDS: Aspirin Enteric Coated 81 MG Tablet PO SCH (10:29)
[2019-09-29] MEDS: Hydrocortisone Rectal 2.5% CRM 28 GM TUBE RC SCH ×2 (10:30→20:44)
[2019-09-29] MEDS: Lactobacillus 1 EACH CAP.SPRINK PO SCH ×2 (10:30→20:40)
[2019-09-29] MEDS: ARIPiprazole 10 MG TABLET PO SCH (17:05)
[2019-09-29] MEDS: Ertapenem 1,000 MG in 0.9 % Sodium Chloride Mini Bag 100 ML IVPB SCH (20:40)
[2019-09-29] MEDS: ALPRAZolam 1 MG TABLET PO SCH (20:41)
[2019-09-30 03:21] LABS: Hematocrit 32.3 % (35.3-44.9); Hemoglobin 9.5 g/dL (11.5-15.4); Mean Corpuscular HGB Conc 29.4 g/dL (31.6-35.5); Mean Corpuscular Hemoglobin 27.1 pg (28.0-33.3); Mean Platelet Volume 9.7 fL (9.4-12.4); Platelet Count 176 K/mcL (140-400); Red Blood Count 3.51 M/mcL (3.82-4.97); Red Cell Distribution Width 15.3 % (11.5-14.5); White Blood Count 7.5 K/mcL (4.3-11.1)
[2019-09-30 03:41] LABS: Alanine Aminotransferase 12 Units/L (7-52); Albumin 3.1 g/dL (3.5-5.7); Albumin/Globulin Ratio 1.4 (1.1-2.2); Alkaline Phosphatase 71 Units/L (34-104); Aspartate Amino Transferase 9 Units/L (13-39); BUN/Creatinine Ratio 31 (6-26); Bilirubin,Total 0.3 mg/dL (0.3-1.0); Blood Urea Nitrogen 20 mg/dL (6-20); Calcium 8.4 mg/dL (8.6-10.3); Carbon Dioxide 24 mEq/L (23-29); Chloride 115 mEq/L (98-107); Globulin 2.2 g/dL (2.4-3.5); Glucose 85 mg/dL (70-105); Magnesium 1.7 mg/dL (1.6-2.6); Osmolality,Calculated 296 (280-300); Potassium 3.2 mEq/L (3.5-5.1); Sodium 142 mEq/L (136-145); Total Protein 5.3 g/dL (6.4-8.9); eGFR For African Americans > 60 (> 60); eGFR For Non-African Americans > 60 (> 60)
[2019-09-30] MEDS: *HR* Heparin 5,000 UNIT/ML VIAL SQ SCH ×3 (05:50→21:07)
[2019-09-30] MEDS: Acetaminophen 325 MG TABLET PO PRN ×2 (05:56→23:13)
[2019-09-30] MEDS: Aspirin Enteric Coated 81 MG Tablet PO SCH (08:50)
[2019-09-30] MEDS: Lactobacillus 1 EACH CAP.SPRINK PO SCH ×2 (08:50→21:06)
[2019-09-30] MEDS: Hydrocortisone Rectal 2.5% CRM 28 GM TUBE RC SCH ×2 (08:50→21:06)
[2019-09-30] MEDS: ARIPiprazole 10 MG TABLET PO SCH (17:42)
[2019-09-30] MEDS: Ertapenem 1,000 MG in 0.9 % Sodium Chloride Mini Bag 100 ML IVPB SCH (21:04)
[2019-09-30] MEDS: ALPRAZolam 1 MG TABLET PO SCH (21:06)
[2019-10-01] MEDS: *HR* Heparin 5,000 UNIT/ML VIAL SQ SCH ×2 (05:53→13:06)
[2019-10-01] MEDS: Aspirin Enteric Coated 81 MG Tablet PO SCH (07:57)
[2019-10-01] MEDS: Lactobacillus 1 EACH CAP.SPRINK PO SCH (07:57)
[2019-10-01] MEDS: Hydrocortisone Rectal 2.5% CRM 28 GM TUBE RC SCH (07:59)
[2019-10-01 08:57] LABS: BUN/Creatinine Ratio 23 (6-26); Blood Urea Nitrogen 16 mg/dL (6-20); Calcium 8.7 mg/dL (8.6-10.3); Carbon Dioxide 25 mEq/L (23-29); Chloride 111 mEq/L (98-107); Glucose 103 mg/dL (70-105); Magnesium 1.8 mg/dL (1.6-2.6); Osmolality,Calculated 301 (280-300); Potassium 3.3 mEq/L (3.5-5.1); Sodium 145 mEq/L (136-145); eGFR For African Americans > 60 (> 60); eGFR For Non-African Americans > 60 (> 60)
[2019-10-01 10:47] VITALS: BP 120/80
[2019-10-01] MEDS ORDERED: levoFLOXacin 750 MG TABLET PO SCH (12:45)
[2019-10-04] MEDS ORDERED: Fluconazole 100 MG TABLET PO SCH (18:00)
== END 2019-10-01 15:47 | disposition home health service (06) | DRG 698 ==
LOC: EMEROOARM 18:30 → 3ANU 18:30 → SUATTDRO 23:33 → 3ANU 23:40 → ICNU 09-26 09:20 → SUATTDRO 09-26 10:34 → 2ANU 09-27 12:51
PROVIDERS: ADMIT Internal Medicine; ATTEND Internal Medicine

== ENCOUNTER 2020-03-05 11:03 | Observation (INO) ==
[2020-03-05 13:34] LABS: Basophils # 0.1 K/mcL (0.0-0.2); Basophils % 0.5 %; Eosinophils # 0.1 K/mcL (0.0-0.6); Eosinophils % 0.6 %; Hematocrit 41.2 % (35.3-44.9); Hemoglobin 12.4 g/dL (11.5-15.4); Lymphocytes # 2.3 K/mcL (0.6-4.6); Lymphocytes % 24.7 %; Mean Corpuscular HGB Conc 30.1 g/dL (31.6-35.5); Mean Corpuscular Hemoglobin 26.8 pg (28.0-33.3); Mean Platelet Volume 10.2 fL (9.4-12.4); Monocytes # 0.6 K/mcL (0.0-1.3); Monocytes % 6.6 %; Neutrophils # 6.3 K/mcL (1.6-8.9); Platelet Count 264 K/mcL (140-400); Red Blood Count 4.63 M/mcL (3.82-4.97); Red Cell Distribution Width 13.4 % (11.5-14.5); Segmented Neutrophils % 66.6 %; White Blood Count 9.4 K/mcL (4.3-11.1)
[2020-03-05 13:41] LABS: BUN/Creatinine Ratio 32 (6-26); Blood Urea Nitrogen 27 mg/dL (6-20); C-Reactive Protein 34 mg/L (Less than 10); Calcium 9.5 mg/dL (8.6-10.3); Carbon Dioxide 25 mEq/L (23-29); Chloride 102 mEq/L (98-107); Glucose 192 mg/dL (70-105); Osmolality,Calculated 296 (280-300); Potassium 3.6 mEq/L (3.5-5.1); Sodium 138 mEq/L (136-145); eGFR For African Americans > 60 (> 60); eGFR For Non-African Americans > 60 (> 60)
[2020-03-05] MEDS ORDERED: Trolamine Salicylate/Aloe Vera 85 APPL/85 GM TUBE TP PRN (13:48)
[2020-03-05] MEDS ORDERED: ALPRAZolam 0.5 MG TABLET PO PRN (13:48)
[2020-03-05] MEDS ORDERED: Ondansetron 4 MG/2 ML VIAL IVP PRN (14:02)
[2020-03-05] MEDS ORDERED: Naloxone 0.4 MG/ML INJ IVP PRN ×2 (14:02→14:10)
[2020-03-05] MEDS ORDERED: polyethylene glycoL 3350 17 GM POWD.PACK PO PRN (14:13)
[2020-03-05] MEDS ORDERED: 0.9 % Sodium Chloride 1,000 ML IVC SCH (14:15)
[2020-03-05] MEDS: Acetaminophen 325 MG TABLET PO PRN ×2 (14:54→20:51)
[2020-03-05] MEDS ORDERED: ARIPiprazole 5 MG TABLET PO SCH (18:00)
[2020-03-05] MEDS: *HR* Heparin 5,000 UNIT/ML VIAL SQ SCH (20:51)
[2020-03-06] MEDS: Acetaminophen 325 MG TABLET PO PRN (03:27)
[2020-03-06 04:35] LABS: Basophils % 0.4 %; Eosinophils # 0.2 K/mcL (0.0-0.6); Eosinophils % 1.9 %; Hematocrit 36.9 % (35.3-44.9); Hemoglobin 11.2 g/dL (11.5-15.4); Immature Granulocytes % 0.1 % (0-4); Lymphocytes # 2.8 K/mcL (0.6-4.6); Lymphocytes % 33.7 %; Mean Corpuscular HGB Conc 30.4 g/dL (31.6-35.5); Mean Corpuscular Hemoglobin 26.8 pg (28.0-33.3); Mean Corpuscular Volume 88.3 fL (83.0-100.0); Monocytes # 0.6 K/mcL (0.0-1.3); Monocytes % 7.6 %; Neutrophils # 4.7 K/mcL (1.6-8.9); Platelet Count 250 K/mcL (140-400); Red Blood Count 4.18 M/mcL (3.82-4.97); Red Cell Distribution Width 13.2 % (11.5-14.5); Segmented Neutrophils % 56.3 %; White Blood Count 8.3 K/mcL (4.3-11.1)
[2020-03-06 04:54] LABS: BUN/Creatinine Ratio 32 (6-26); Blood Urea Nitrogen 22 mg/dL (6-20); Carbon Dioxide 27 mEq/L (23-29); Chloride 103 mEq/L (98-107); Glucose 129 mg/dL (70-105); Osmolality,Calculated 291 (280-300); Potassium 3.3 mEq/L (3.5-5.1); Sodium 138 mEq/L (136-145); eGFR For African Americans > 60 (> 60); eGFR For Non-African Americans > 60 (> 60)
[2020-03-06] MEDS: *HR* Heparin 5,000 UNIT/ML VIAL SQ SCH (06:47)
[2020-03-06 07:37] VITALS: BP 122/78
[2020-03-06] MEDS ORDERED: Aspirin Enteric Coated 81 MG Tablet PO SCH (09:00)
[2020-03-06] MEDS ORDERED: Multivit/Ca/Min/Fe/FA 1 TAB TABLET PO SCH (09:00)
[2020-03-06] MEDS ORDERED: Lactobacillus 1 EACH CAP.SPRINK PO SCH (09:00)
[2020-03-06] MEDS ORDERED: lisinopriL 10 MG TABLET PO SCH (09:00)
[2020-03-06] MEDS ORDERED: Fluticasone Propionate Nasal 50 MCG/SPRAY BOTTLE NS SCH (09:00)
== END 2020-03-06 11:31 | disposition home or self-care (01) ==
LOC: 3NENU 11:03 → EMEROOARM 11:03 → SUATTDRO 13:01 → 3NENU 13:43
PROVIDERS: ADMIT Internal Medicine; ATTEND Family Medicine

== ENCOUNTER 2020-08-06 11:46 | Observation (INO) ==
[2020-08-06 12:55] LABS: Basophils % 0.2 %; Hematocrit 48.9 % (35.3-44.9); Immature Granulocytes % 0.1 % (0-4); Lymphocytes # 1.7 K/mcL (0.6-4.6); Lymphocytes % 16.5 %; Mean Corpuscular HGB Conc 30.7 g/dL (31.6-35.5); Mean Corpuscular Hemoglobin 26.9 pg (28.0-33.3); Mean Corpuscular Volume 87.6 fL (83.0-100.0); Monocytes # 0.9 K/mcL (0.0-1.3); Monocytes % 8.3 %; Neutrophils # 7.8 K/mcL (1.6-8.9); Platelet Count 377 K/mcL (140-400); Red Blood Count 5.58 M/mcL (3.82-4.97); Red Cell Distribution Width 13.5 % (11.5-14.5); Segmented Neutrophils % 74.9 %; White Blood Count 10.5 K/mcL (4.3-11.1)
[2020-08-06 13:17] LABS: Alanine Aminotransferase 37 Units/L (7-52); Albumin 4.2 g/dL (3.5-5.7); Albumin/Globulin Ratio 1.2 (1.1-2.2); Alkaline Phosphatase 174 Units/L (34-104); Aspartate Amino Transferase 20 Units/L (13-39); BUN/Creatinine Ratio 27 (6-26); Bilirubin,Total 0.5 mg/dL (0.3-1.0); Blood Urea Nitrogen 19 mg/dL (6-20); Calcium 9.4 mg/dL (8.6-10.3); Carbon Dioxide 25 mEq/L (23-29); Chloride 97 mEq/L (98-107); Globulin 3.5 g/dL (2.4-3.5); Glucose 150 mg/dL (70-105); Osmolality,Calculated 287 (280-300); Potassium 3.8 mEq/L (3.5-5.1); Sodium 136 mEq/L (136-145); Total Protein 7.7 g/dL (6.4-8.9); eGFR For African Americans > 60 (> 60); eGFR For Non-African Americans > 60 (> 60)
[2020-08-06 13:20] LABS: Amorphous Sediment,Urine Few per hpf (None-Few); Bacteria,Urine Moderate per hpf (None-Few); Bilirubin,Urine Negative (Negative); Blood,Urine Trace (Negative); Clarity,Urine Turbid (Clear); Color,Urine Light-Yellow (Yellow); Glucose,Urine (UA) Normal (Normal); Ketones,Urine Trace mg/dL (Negative); Leukocyte Esterase,Urine Large (Negative); Mucus,Urine Few per lpf (None-Few); Nitrite,Urine Positive (Negative); Protein,Urine Trace mg/dL (Neg-Trace); Specific Gravity,Urine 1.007 (1.010-1.025); Squamous Epithelial Cell,Urine Few per hpf (None-Few); Urobilinogen,Urine Normal (Normal); WBC,Urine 50-100 per hpf (0-3)
[2020-08-06] MEDS ORDERED: LEVOFLOXACIN 500 MG/100 ML MLS IVPB ONE (14:50)
[2020-08-06] MEDS ORDERED: Naloxone 0.4 MG/ML INJ IVP PRN (14:59)
[2020-08-06] MEDS ORDERED: D5% in Water 1,000 ML IVC PRN (15:06)
[2020-08-06] MEDS ORDERED: *HR* Dextrose 50 % in Water (Vial) 50 ML VIAL IVP PRN (15:06)
[2020-08-06] MEDS ORDERED: Dextrose Gel 15 GM/37.5 ML TUBE PO PRN ×2 (15:06)
[2020-08-06] MEDS ORDERED: *HR* Labetalol 20 MG/4 ML SYRINGE IVP PRN (15:50)
[2020-08-06] MEDS: Ringers Solution, Lactated 1,000 ML IVC SCH (17:54)
[2020-08-06] MEDS: *HR* Heparin 5,000 UNIT/ML VIAL SQ SCH ×2 (17:54→18:05)
[2020-08-06] MEDS: Insulin LISPRO 300 UNITS/3 ML VIAL SUBQ SCH (17:55)
[2020-08-06] MEDS ORDERED: Acetaminophen IV 1,000 MG/100 ML BAG IVPB ONE (22:36)
[2020-08-07] MEDS: Insulin LISPRO 300 UNITS/3 ML VIAL SUBQ SCH ×3 (00:52→12:05)
[2020-08-07] MEDS: *HR* Heparin 5,000 UNIT/ML VIAL SQ SCH ×2 (04:57→16:30)
[2020-08-07 05:11] LABS: Basophils % 0.3 %; Eosinophils % 0.5 %; Hematocrit 42.1 % (35.3-44.9); Immature Granulocytes % 0.1 % (0-4); Lymphocytes # 2.5 K/mcL (0.6-4.6); Lymphocytes % 34.2 %; Mean Corpuscular HGB Conc 29.5 g/dL (31.6-35.5); Mean Corpuscular Hemoglobin 25.9 pg (28.0-33.3); Mean Corpuscular Volume 88.1 fL (83.0-100.0); Mean Platelet Volume 9.9 fL (9.4-12.4); Monocytes # 0.9 K/mcL (0.0-1.3); Monocytes % 11.6 %; Platelet Count 306 K/mcL (140-400); Red Blood Count 4.78 M/mcL (3.82-4.97); Red Cell Distribution Width 13.6 % (11.5-14.5); Segmented Neutrophils % 53.3 %; White Blood Count 7.4 K/mcL (4.3-11.1)
[2020-08-07 05:12] LABS: Hemoglobin 12.4 g/dL (11.5-15.4)
[2020-08-07 05:19] LABS: INR 1.3; Prothrombin Time 14.5 Seconds (9.4-12.1)
[2020-08-07 05:21] LABS: Activated Partial Thrombo Time 27.1 Seconds (26.0-36.0)
[2020-08-07 05:26] LABS: BUN/Creatinine Ratio 27 (6-26); Blood Urea Nitrogen 19 mg/dL (6-20); Calcium 8.6 mg/dL (8.6-10.3); Carbon Dioxide 26 mEq/L (23-29); Chloride 103 mEq/L (98-107); Glucose 106 mg/dL (70-105); Magnesium 1.9 mg/dL (1.6-2.6); Osmolality,Calculated 291 (280-300); Phosphorous 3.1 mg/dL (2.7-4.5); Potassium 3.7 mEq/L (3.5-5.1); Sodium 139 mEq/L (136-145); eGFR For African Americans > 60 (> 60); eGFR For Non-African Americans > 60 (> 60)
[2020-08-07] MEDS: Pantoprazole 40 MG VIAL IVP SCH (07:58)
[2020-08-07] MEDS: Ringers Solution, Lactated 1,000 ML IVC SCH (07:58)
[2020-08-07] MEDS: Ketorolac 15 MG/ML VIAL IVP PRN (10:30)
[2020-08-07] MEDS: Acetaminophen 325 MG TABLET PO PRN ×2 (12:07→20:44)
[2020-08-07] MEDS: Ondansetron 4 MG/2 ML VIAL IVP PRN (13:13)
[2020-08-07] MEDS ORDERED: Fluconazole 150 MG TABLET PO SCH (15:45)
[2020-08-07] MEDS ORDERED: levoFLOXacin 750 MG/150 ML 750 MG/150 ML BAG IVPB SCH (16:00)
[2020-08-07] MEDS: ARIPiprazole 10 MG TABLET PO SCH (17:11)
[2020-08-07] MEDS: ALPRAZolam 1 MG TABLET PO SCH (20:30)
[2020-08-07] MEDS ORDERED: NON-FORMULARY MEDICATION 1 EACH EACH (Vit C/E/Zn/Coppr/Lutein/Zeaxan [Preservision Areds 2 PO SCH (21:00)
[2020-08-08] MEDS: Acetaminophen 325 MG TABLET PO PRN ×2 (03:37→10:03)
[2020-08-08] MEDS: *HR* Heparin 5,000 UNIT/ML VIAL SQ SCH ×2 (05:11→12:57)
[2020-08-08] MEDS: Pantoprazole 40 MG VIAL IVP SCH (10:00)
[2020-08-08] MEDS: Lactobacillus 1 EACH CAP.SPRINK PO SCH (10:00)
[2020-08-08] MEDS: Aspirin Enteric Coated 81 MG Tablet PO SCH (10:01)
[2020-08-08] MEDS: lisinopriL 10 MG TABLET PO SCH (10:01)
[2020-08-08] MEDS ORDERED: polyethylene glycoL 3350 17 GM POWD.PACK PO PRN (15:54)
[2020-08-08] MEDS: ARIPiprazole 10 MG TABLET PO SCH (17:03)
[2020-08-08] MEDS: Ketorolac 15 MG/ML VIAL IVP PRN (20:28)
[2020-08-08] MEDS: ALPRAZolam 1 MG TABLET PO SCH (20:29)
[2020-08-09] MEDS: Acetaminophen 325 MG TABLET PO PRN ×3 (00:47→21:20)
[2020-08-09] MEDS: Ondansetron 4 MG/2 ML VIAL IVP PRN (00:47)
[2020-08-09] MEDS: *HR* Heparin 5,000 UNIT/ML VIAL SQ SCH ×2 (05:50→17:30)
[2020-08-09 07:46] LABS: Basophils % 0.5 %; Eosinophils # 0.1 K/mcL (0.0-0.6); Eosinophils % 1.3 %; Hematocrit 35.9 % (35.3-44.9); Hemoglobin 11.3 g/dL (11.5-15.4); Immature Granulocytes % 0.3 % (0-4); Lymphocytes # 2.8 K/mcL (0.6-4.6); Lymphocytes % 35.6 %; Mean Corpuscular HGB Conc 31.5 g/dL (31.6-35.5); Mean Corpuscular Hemoglobin 27.3 pg (28.0-33.3); Mean Corpuscular Volume 86.7 fL (83.0-100.0); Mean Platelet Volume 10.3 fL (9.4-12.4); Monocytes # 0.6 K/mcL (0.0-1.3); Monocytes % 7.1 %; Neutrophils # 4.3 K/mcL (1.6-8.9); Platelet Count 258 K/mcL (140-400); Red Blood Count 4.14 M/mcL (3.82-4.97); Red Cell Distribution Width 13.3 % (11.5-14.5); Segmented Neutrophils % 55.2 %; White Blood Count 7.8 K/mcL (4.3-11.1)
[2020-08-09 07:54] LABS: BUN/Creatinine Ratio 17 (6-26); Blood Urea Nitrogen 11 mg/dL (6-20); Calcium 8.2 mg/dL (8.6-10.3); Carbon Dioxide 27 mEq/L (23-29); Chloride 101 mEq/L (98-107); Glucose 100 mg/dL (70-105); Magnesium 1.7 mg/dL (1.6-2.6); Osmolality,Calculated 277 (280-300); Phosphorous 3.5 mg/dL (2.7-4.5); Potassium 3.7 mEq/L (3.5-5.1); Sodium 134 mEq/L (136-145); eGFR For African Americans > 60 (> 60); eGFR For Non-African Americans > 60 (> 60)
[2020-08-09] MEDS: Aspirin Enteric Coated 81 MG Tablet PO SCH (09:42)
[2020-08-09] MEDS: levoFLOXacin 750 MG TABLET PO SCH (09:42)
[2020-08-09] MEDS: lisinopriL 10 MG TABLET PO SCH (09:42)
[2020-08-09] MEDS: Lactobacillus 1 EACH CAP.SPRINK PO SCH (09:42)
[2020-08-09] MEDS: ARIPiprazole 10 MG TABLET PO SCH (17:30)
[2020-08-09] MEDS: ALPRAZolam 1 MG TABLET PO SCH (21:24)
[2020-08-09] MEDS ORDERED: Melatonin 3 MG TABLET PO PRN (23:11)
[2020-08-09] MEDS ORDERED: ARIPiprazole 10 MG TABLET PO SCH (23:45)
[2020-08-10] MEDS: *HR* Heparin 5,000 UNIT/ML VIAL SQ SCH (06:33)
[2020-08-10 07:14] VITALS: BP 99/67
[2020-08-10] MEDS: Aspirin Enteric Coated 81 MG Tablet PO SCH (08:49)
[2020-08-10] MEDS: Lactobacillus 1 EACH CAP.SPRINK PO SCH (08:49)
[2020-08-10] MEDS: levoFLOXacin 750 MG TABLET PO SCH (08:49)
[2020-08-10] MEDS: lisinopriL 10 MG TABLET PO SCH (08:50)
[2020-08-10] MEDS: Acetaminophen 325 MG TABLET PO PRN (10:09)
== END 2020-08-10 12:41 | disposition home health service (06) ==
LOC: EMEROOARM 11:46 → 3ANU 11:46 → SUATTDRO 15:06 → 3ANU 16:33
PROVIDERS: ADMIT Internal Medicine; ATTEND Internal Medicine

== ENCOUNTER 2021-01-20 15:46 | Observation (INO) ==
[2021-01-20] MEDS ORDERED: 0.9 % Sodium Chloride 1,000 ML IVC ONE (17:45)
[2021-01-20 18:41] LABS: Bilirubin,Urine Negative (Negative); Blood,Urine Trace (Negative); Clarity,Urine Turbid (Clear); Color,Urine Light-Yellow (Yellow); Glucose,Urine (UA) Normal (Normal); Ketones,Urine Negative (Negative); Leukocyte Esterase,Urine Large (Negative); Nitrite,Urine Positive (Negative); PH,Urine 6.5 pH Units (5.0-8.0); Protein,Urine 30 mg/dL (Neg-Trace); Specific Gravity,Urine 1.009 (1.010-1.025); Urobilinogen,Urine Normal (Normal)
[2021-01-20 18:56] LABS: Amorphous Sediment,Urine Few per hpf (None-Few); Bacteria,Urine Few per hpf (None-Few); Mucus,Urine Few per lpf (None-Few); Squamous Epithelial Cell,Urine Few per hpf (None-Few); Transitional Epi Cells,Urine Few per hpf (None-Few); WBC,Urine 50-100 per hpf (0-3)
[2021-01-20 19:43] LABS: Basophils % 0.4 %; Immature Granulocytes % 0.4 % (0-4)
[2021-01-20 19:44] LABS: Eosinophils % 0.4 %; Hematocrit 26.3 % (35.3-44.9); Hemoglobin 7.9 g/dL (11.5-15.4); Lymphocytes # 2.3 K/mcL (0.6-4.6); Lymphocytes % 49.3 %; Mean Corpuscular Hemoglobin 28.7 pg (28.0-33.3); Mean Corpuscular Volume 95.6 fL (83.0-100.0); Mean Platelet Volume 9.6 fL (9.4-12.4); Monocytes # 0.6 K/mcL (0.0-1.3); Monocytes % 13.2 %; Neutrophils # 1.7 K/mcL (1.6-8.9); Platelet Count 151 K/mcL (140-400); Red Blood Count 2.75 M/mcL (3.82-4.97); Red Cell Distribution Width 13.7 % (11.5-14.5); Segmented Neutrophils % 36.3 %; White Blood Count 4.7 K/mcL (4.3-11.1)
[2021-01-20 20:09] LABS: Alanine Aminotransferase 32 Units/L (7-52); Albumin 4.1 g/dL (3.5-5.7); Albumin/Globulin Ratio 1.5 (1.1-2.2); Alkaline Phosphatase 127 Units/L (34-104); Aspartate Amino Transferase 22 Units/L (13-39); BUN/Creatinine Ratio 33 (6-26); Bilirubin,Indirect 0.4 mg/dL (0.0-1.0); Bilirubin,Total 0.4 mg/dL (0.3-1.0); Blood Urea Nitrogen 16 mg/dL (6-20); Carbon Dioxide 25 mEq/L (23-29); Chloride 106 mEq/L (98-107); Globulin 2.7 g/dL (2.4-3.5); Glucose 87 mg/dL (70-105); Osmolality,Calculated 295 (280-300); Potassium 3.9 mEq/L (3.5-5.1); Sodium 142 mEq/L (136-145); Total Protein 6.8 g/dL (6.4-8.9); Troponin I < 0.03 ng/mL (< 0.04); eGFR For African Americans > 60 (> 60); eGFR For Non-African Americans > 60 (> 60)
[2021-01-20 20:11] LABS: Hypochromasia Present (Not Present); Platelet Estimate Normal (Normal)
[2021-01-20 20:20] LABS: Amphetamine Screen,Urine Negative ng/mL (Cutoff=1000); Barbiturate Screen,Urine Negative ng/mL (Cutoff=200); Benzodiazepines Screen,Urine Negative ng/mL (Cutoff=200); Cannabinoid Screen,Urine Negative ng/mL (Cutoff = 50); Cocaine Screen,Urine Negative ng/mL (Cutoff= 300); Opiate Screen,Urine Negative ng/mL (Cutoff=300); Phencyclidine Screen,Urine Negative ng/mL (Cutoff=25)
[2021-01-20 20:45] LABS: Hepatitis B Surface Antigen Nonreactive (Nonreactive)
[2021-01-20 21:14] LABS: Hepatitis C Virus Antibody Nonreactive (Nonreactive)
[2021-01-20 21:16] LABS: Hepatitis B Core IgM Nonreactive (Nonreactive)
[2021-01-20] MEDS ORDERED: 0.9 % Sodium Chloride 1,000 ML ONE (21:46)
[2021-01-20] MEDS ORDERED: Ertapenem 1,000 MG in 0.9 % Sodium Chloride Mini Bag 100 ML IVPB ONE (22:05)
[2021-01-21] MEDS ORDERED: Naloxone 0.4 MG/ML INJ IVP PRN (03:36)
[2021-01-21] MEDS ORDERED: Melatonin 3 MG TABLET PO PRN (03:41)
[2021-01-21] MEDS ORDERED: Ondansetron 4 MG/2 ML VIAL IVP PRN (03:41)
[2021-01-21 03:46] LABS: Hepatitis A Antibody IgM Nonreactive (Nonreactive)
[2021-01-21 05:45] LABS: Eosinophils % 0.6 %
[2021-01-21 05:47] LABS: Basophils # 0.1 K/mcL (0.0-0.2); Basophils % 0.7 %; Hematocrit 39.1 % (35.3-44.9); Hemoglobin 11.7 g/dL (11.5-15.4); Immature Granulocytes % 0.3 % (0-4); Immature Platelets 5.1 % (1.1-6.1); Lymphocytes # 2.5 K/mcL (0.6-4.6); Mean Corpuscular HGB Conc 29.9 g/dL (31.6-35.5); Mean Corpuscular Hemoglobin 27.5 pg (28.0-33.3); Monocytes # 0.8 K/mcL (0.0-1.3); Neutrophils # 3.5 K/mcL (1.6-8.9); Platelet Count 211 K/mcL (140-400); Red Blood Count 4.25 M/mcL (3.82-4.97); Segmented Neutrophils % 51.4 %; White Blood Count 6.8 K/mcL (4.3-11.1)
[2021-01-21 06:30] LABS: Alanine Aminotransferase 30 Units/L (7-52); Albumin 3.7 g/dL (3.5-5.7); Albumin/Globulin Ratio 1.6 (1.1-2.2); Alkaline Phosphatase 119 Units/L (34-104); Aspartate Amino Transferase 21 Units/L (13-39); BUN/Creatinine Ratio 25 (6-26); Bilirubin,Total 0.4 mg/dL (0.3-1.0); Blood Urea Nitrogen 14 mg/dL (6-20); Calcium 8.5 mg/dL (8.6-10.3); Carbon Dioxide 22 mEq/L (23-29); Chloride 109 mEq/L (98-107); Globulin 2.3 g/dL (2.4-3.5); Glucose 109 mg/dL (70-105); Magnesium 1.8 mg/dL (1.6-2.6); Osmolality,Calculated 291 (280-300); Phosphorous 3.4 mg/dL (2.7-4.5); Potassium 3.6 mEq/L (3.5-5.1); Sodium 140 mEq/L (136-145); Troponin I < 0.03 ng/mL (< 0.04); eGFR For African Americans > 60 (> 60); eGFR For Non-African Americans > 60 (> 60)
[2021-01-21] MEDS ORDERED: 0.9 % Sodium Chloride 1,000 ML IVC ONE (08:16)
[2021-01-21] MEDS ORDERED: Acetaminophen 325 MG TABLET PO PRN (08:23)
[2021-01-21] MEDS ORDERED: Dextrose Gel 15 GM/37.5 ML TUBE PO PRN ×2 (08:26)
[2021-01-21] MEDS ORDERED: *HR* Dextrose 50 % in Water (Vial) 50 ML VIAL IVP PRN (08:26)
[2021-01-21] MEDS ORDERED: D5% in Water 1,000 ML IVC PRN (08:26)
[2021-01-21] MEDS: Insulin LISPRO 300 UNITS/3 ML VIAL SUBQ SCH ×2 (12:20→16:28)
[2021-01-21] MEDS: *HR* Heparin 5,000 UNIT/ML VIAL SQ SCH (17:51)
[2021-01-21] MEDS ORDERED: Insulin LISPRO 300 UNITS/3 ML VIAL SUBQ SCH (21:00)
[2021-01-22] MEDS ORDERED: Ertapenem 1,000 MG in 0.9 % Sodium Chloride Mini Bag 100 ML IVPB SCH
[2021-01-22 01:54] LABS: Hematocrit 36.5 % (35.3-44.9); Mean Corpuscular HGB Conc 30.1 g/dL (31.6-35.5); Mean Corpuscular Hemoglobin 27.8 pg (28.0-33.3); Mean Corpuscular Volume 92.2 fL (83.0-100.0); Mean Platelet Volume 9.8 fL (9.4-12.4); Platelet Count 213 K/mcL (140-400); Red Blood Count 3.96 M/mcL (3.82-4.97); Red Cell Distribution Width 13.9 % (11.5-14.5)
[2021-01-22] MEDS: *HR* Heparin 5,000 UNIT/ML VIAL SQ SCH (05:07)
[2021-01-22 07:47] VITALS: BP 143/82; PULSE 80; TEMP 98.4; O2SAT 96
[2021-01-22] MEDS: Insulin LISPRO 300 UNITS/3 ML VIAL SUBQ SCH ×2 (08:08→14:24)
== END 2021-01-22 16:27 | disposition home health service (06) ==
LOC: EMEROOARM 15:46 → 3ANU 15:46 → SUATTDRO 01-21 02:15 → 3ANU 01-21 02:40
PROVIDERS: ADMIT Family Medicine; ATTEND Internal Medicine

== ENCOUNTER 2021-09-28 15:31 | Inpatient (IN) ==
[2021-09-28] MEDS ORDERED: Isovue-370 500 ML BOTTLE IVP ONE (18:06)
[2021-09-28] MEDS ORDERED: 0.9 % Sodium Chloride 1,000 ML IVC ONE (18:18)
[2021-09-28] MEDS ORDERED: Ondansetron 4 MG/2 ML VIAL IVP ONE (18:18)
[2021-09-28 18:35] LABS: Basophils % 0.4 %; Eosinophils % 0.1 %; Hematocrit 42.7 % (35.3-44.9); Hemoglobin 13.5 g/dL (11.5-15.4); Immature Granulocytes % 0.3 % (0-4); Lymphocytes # 0.7 K/mcL (0.6-4.6); Mean Corpuscular HGB Conc 31.6 g/dL (31.6-35.5); Mean Corpuscular Hemoglobin 28.5 pg (28.0-33.3); Mean Corpuscular Volume 90.1 fL (83.0-100.0); Mean Platelet Volume 9.8 fL (9.4-12.4); Monocytes # 0.9 K/mcL (0.0-1.3); Monocytes % 12.5 %; Neutrophils # 5.6 K/mcL (1.6-8.9); Platelet Count 288 K/mcL (140-400); Red Blood Count 4.74 M/mcL (3.82-4.97); Red Cell Distribution Width 14.9 % (11.5-14.5); Segmented Neutrophils % 76.7 %; White Blood Count 7.3 K/mcL (4.3-11.1)
[2021-09-28 18:44] LABS: Bilirubin,Urine Negative (Negative); Blood,Urine Negative (Negative); Clarity,Urine Ex.Turbid (Clear); Color,Urine Yellow (Yellow); Glucose,Urine (UA) Normal (Normal); Ketones,Urine Negative (Negative); Leukocyte Esterase,Urine Large (Negative); Nitrite,Urine Negative (Negative); Protein,Urine 100 mg/dL (Neg-Trace); Specific Gravity,Urine 1.012 (1.010-1.025); Urobilinogen,Urine Normal (Normal)
[2021-09-28 18:50] LABS: Squamous Epithelial Cell,Urine Few per hpf (None-Few)
[2021-09-28 18:52] LABS: Amorphous Sediment,Urine Few per hpf (None-Few); Bacteria,Urine Moderate per hpf (None-Few); RBC,Urine 0-3 per hpf (0-3)
[2021-09-28 18:54] LABS: Alanine Aminotransferase 25 Units/L (7-52); Albumin 4.5 g/dL (3.5-5.7); Albumin/Globulin Ratio 1.5 (1.1-2.2); Alkaline Phosphatase 351 Units/L (34-104); Amylase 55 Units/L (29-103); Aspartate Amino Transferase 19 Units/L (13-39); BUN/Creatinine Ratio 31 (6-26); Bilirubin,Direct 0.1 mg/dL (0.0-0.2); Bilirubin,Indirect 0.4 mg/dL (0.0-1.0); Bilirubin,Total 0.5 mg/dL (0.3-1.0); Blood Urea Nitrogen 21 mg/dL (6-20); Calcium 9.4 mg/dL (8.6-10.3); Carbon Dioxide 22 mEq/L (23-29); Chloride 105 mEq/L (98-107); Globulin 3.1 g/dL (2.4-3.5); Glucose 147 mg/dL (70-105); Lipase 33 Units/L (11-82); Osmolality,Calculated 296 (280-300); Potassium 3.9 mEq/L (3.5-5.1); Sodium 140 mEq/L (136-145); Total Protein 7.6 g/dL (6.4-8.9); eGFR For African Americans > 60 (> 60); eGFR For Non-African Americans > 60 (> 60)
[2021-09-28] MEDS ORDERED: Naloxone 0.4 MG/ML INJ IVP PRN (20:07)
[2021-09-28] MEDS ORDERED: Melatonin 3 MG TABLET PO PRN (20:07)
[2021-09-28] MEDS ORDERED: Ondansetron ODT 4 MG TAB.RAPDIS SL PRN (20:13)
[2021-09-28] MEDS ORDERED: Ringers Solution, Lactated 1,000 ML IVC SCH (20:15)
[2021-09-29] MEDS ORDERED: ALPRAZolam 1 MG TABLET PO PRN (03:18)
[2021-09-29] MEDS ORDERED: tiZANidine 4 MG TABLET PO PRN (03:18)
[2021-09-29] MEDS: Ondansetron 4 MG/2 ML VIAL IVP PRN ×3 (04:35→16:00)
[2021-09-29 05:50] LABS: Hematocrit 38.2 % (35.3-44.9); Mean Corpuscular HGB Conc 31.4 g/dL (31.6-35.5); Mean Corpuscular Hemoglobin 28.5 pg (28.0-33.3); Mean Corpuscular Volume 90.7 fL (83.0-100.0); Mean Platelet Volume 10.1 fL (9.4-12.4); Platelet Count 269 K/mcL (140-400); Red Blood Count 4.21 M/mcL (3.82-4.97); Red Cell Distribution Width 15.3 % (11.5-14.5); White Blood Count 4.3 K/mcL (4.3-11.1)
[2021-09-29 06:12] LABS: Alanine Aminotransferase 21 Units/L (7-52); Albumin/Globulin Ratio 1.7 (1.1-2.2); Alkaline Phosphatase 320 Units/L (34-104); Aspartate Amino Transferase 15 Units/L (13-39); BUN/Creatinine Ratio 32 (6-26); Bilirubin,Total 0.5 mg/dL (0.3-1.0); Blood Urea Nitrogen 18 mg/dL (6-20); Calcium 8.7 mg/dL (8.6-10.3); Carbon Dioxide 23 mEq/L (23-29); Chloride 109 mEq/L (98-107); Globulin 2.3 g/dL (2.4-3.5); Glucose 135 mg/dL (70-105); Magnesium 1.9 mg/dL (1.6-2.6); Osmolality,Calculated 306 (280-300); Phosphorous 3.6 mg/dL (2.7-4.5); Potassium 3.5 mEq/L (3.5-5.1); Sodium 146 mEq/L (136-145); Total Protein 6.3 g/dL (6.4-8.9); eGFR For African Americans > 60 (> 60); eGFR For Non-African Americans > 60 (> 60)
[2021-09-29] MEDS ORDERED: Metoprolol XL (24 HR) Succ 25 MG TAB.ER.24H PO SCH (09:00)
[2021-09-29] MEDS ORDERED: lisinopriL 10 MG TABLET PO SCH (09:00)
[2021-09-29] MEDS: Pantoprazole 40 MG VIAL IVP SCH (10:30)
[2021-09-29] MEDS: D5% in Water 1,000 ML IVC SCH (10:30)
[2021-09-29] MEDS ORDERED: ARIPiprazole 5 MG TABLET PO SCH (18:00)
[2021-09-30] MEDS: D5% in Water 1,000 ML IVC SCH ×2 (01:49→13:40)
[2021-09-30 05:48] LABS: BUN/Creatinine Ratio 31 (6-26); Blood Urea Nitrogen 26 mg/dL (6-20); Calcium 8.6 mg/dL (8.6-10.3); Carbon Dioxide 20 mEq/L (23-29); Chloride 106 mEq/L (98-107); Glucose 134 mg/dL (70-105); Osmolality,Calculated 301 (280-300); Sodium 142 mEq/L (136-145); eGFR For African Americans > 60 (> 60); eGFR For Non-African Americans > 60 (> 60)
[2021-09-30 06:12] LABS: Hematocrit 38.7 % (35.3-44.9); Mean Corpuscular Hemoglobin 28.3 pg (28.0-33.3); Mean Corpuscular Volume 91.3 fL (83.0-100.0); Mean Platelet Volume 9.6 fL (9.4-12.4); Platelet Count 242 K/mcL (140-400); Red Blood Count 4.24 M/mcL (3.82-4.97); Red Cell Distribution Width 16.1 % (11.5-14.5); White Blood Count 7.2 K/mcL (4.3-11.1)
[2021-09-30 06:37] LABS: Lymphocytes # 2.6 K/mcL (0.6-4.6); Monocytes # 1.2 K/mcL (0.0-1.3); Neutrophils # 3.3 K/mcL (1.6-8.9); Platelet Estimate Normal (Normal); Reactive Lymphocytes Present (Not Present)
[2021-09-30] MEDS: Pantoprazole 40 MG VIAL IVP SCH (07:45)
[2021-09-30] MEDS: cefTRIAXone 1,000 MG in 0.9 % Sodium Chloride 10 ML IVP SCH (15:24)
[2021-10-01 02:08] LABS: Basophils % 0.6 %; Eosinophils # 0.2 K/mcL (0.0-0.6); Eosinophils % 4.1 %; Hematocrit 34.1 % (35.3-44.9); Hemoglobin 10.5 g/dL (11.5-15.4); Immature Granulocytes % 0.4 % (0-4); Lymphocytes % 39.6 %; Mean Corpuscular HGB Conc 30.8 g/dL (31.6-35.5); Mean Corpuscular Hemoglobin 28.2 pg (28.0-33.3); Mean Corpuscular Volume 91.7 fL (83.0-100.0); Mean Platelet Volume 9.8 fL (9.4-12.4); Neutrophils # 1.8 K/mcL (1.6-8.9); Nucleated Red Blood Cells 0.6 /100 WBC (0); Platelet Count 199 K/mcL (140-400); Red Blood Count 3.72 M/mcL (3.82-4.97); Red Cell Distribution Width 15.4 % (11.5-14.5); Segmented Neutrophils % 35.3 %; White Blood Count 5.2 K/mcL (4.3-11.1)
[2021-10-01 02:13] LABS: Lymphocytes # 2.1 K/mcL (0.6-4.6)
[2021-10-01 02:26] LABS: BUN/Creatinine Ratio 28 (6-26); Blood Urea Nitrogen 19 mg/dL (6-20); Calcium 8.1 mg/dL (8.6-10.3); Carbon Dioxide 23 mEq/L (23-29); Chloride 101 mEq/L (98-107); Glucose 121 mg/dL (70-105); Magnesium 1.6 mg/dL (1.6-2.6); Osmolality,Calculated 282 (280-300); Potassium 2.7 mEq/L (3.5-5.1); Sodium 134 mEq/L (136-145); eGFR For African Americans > 60 (> 60); eGFR For Non-African Americans > 60 (> 60)
[2021-10-01 03:37] LABS: Platelet Estimate Normal (Normal); Reactive Lymphocytes Present (Not Present)
[2021-10-01] MEDS: D5% in Water 1,000 ML IVC SCH ×2 (03:41→16:33)
[2021-10-01] MEDS: Lactobacillus 1 EACH CAP.SPRINK PO SCH (09:12)
[2021-10-01] MEDS: Aspirin Enteric Coated 81 MG Tablet PO SCH (09:15)
[2021-10-01] MEDS: Multivit/Ca/Min/Fe/FA 1 TAB TABLET PO SCH (09:15)
[2021-10-01] MEDS: cefTRIAXone 1,000 MG in 0.9 % Sodium Chloride 10 ML IVP SCH (16:32)
[2021-10-02 01:34] LABS: Hemoglobin 10.3 g/dL (11.5-15.4); Mean Corpuscular HGB Conc 32.2 g/dL (31.6-35.5); Mean Corpuscular Hemoglobin 28.9 pg (28.0-33.3); Mean Corpuscular Volume 89.9 fL (83.0-100.0); Mean Platelet Volume 9.8 fL (9.4-12.4); Platelet Count 209 K/mcL (140-400); Red Blood Count 3.56 M/mcL (3.82-4.97); Red Cell Distribution Width 15.1 % (11.5-14.5); White Blood Count 3.6 K/mcL (4.3-11.1)
[2021-10-02] MEDS: Melatonin 3 MG TABLET PO PRN ×2 (01:43→22:33)
[2021-10-02 01:52] LABS: BUN/Creatinine Ratio 14 (6-26); Blood Urea Nitrogen 8 mg/dL (6-20); Calcium 8.5 mg/dL (8.6-10.3); Carbon Dioxide 27 mEq/L (23-29); Chloride 103 mEq/L (98-107); Glucose 111 mg/dL (70-105); Magnesium 2.8 mg/dL (1.6-2.6); Osmolality,Calculated 287 (280-300); Potassium 2.8 mEq/L (3.5-5.1); Sodium 139 mEq/L (136-145); eGFR For African Americans > 60 (> 60); eGFR For Non-African Americans > 60 (> 60)
[2021-10-02] MEDS: D5% in Water 1,000 ML IVC SCH ×2 (05:40→21:34)
[2021-10-02] MEDS: Multivit/Ca/Min/Fe/FA 1 TAB TABLET PO SCH (07:36)
[2021-10-02] MEDS: Aspirin Enteric Coated 81 MG Tablet PO SCH (07:36)
[2021-10-02] MEDS: Lactobacillus 1 EACH CAP.SPRINK PO SCH (07:36)
[2021-10-02] MEDS: cefTRIAXone 1,000 MG in 0.9 % Sodium Chloride 10 ML IVP SCH (15:55)
[2021-10-03 07:20] LABS: BUN/Creatinine Ratio 11 (6-26); Blood Urea Nitrogen 6 mg/dL (6-20); Calcium 8.6 mg/dL (8.6-10.3); Carbon Dioxide 28 mEq/L (23-29); Chloride 102 mEq/L (98-107); Glucose 130 mg/dL (70-105); Osmolality,Calculated 289 (280-300); Potassium 2.6 mEq/L (3.5-5.1); Sodium 140 mEq/L (136-145); eGFR For African Americans > 60 (> 60); eGFR For Non-African Americans > 60 (> 60)
[2021-10-03] MEDS: Lactobacillus 1 EACH CAP.SPRINK PO SCH (08:05)
[2021-10-03] MEDS: Aspirin Enteric Coated 81 MG Tablet PO SCH (08:05)
[2021-10-03] MEDS: Multivit/Ca/Min/Fe/FA 1 TAB TABLET PO SCH (08:05)
[2021-10-03] MEDS: D5% in Water 1,000 ML IVC SCH (08:08)
[2021-10-03] MEDS ORDERED: Potassium Chloride Elixir 20 MEQ/15 ML UDC PO ONE (08:52)
[2021-10-03 10:25] VITALS: BP 145/91; PULSE 109; TEMP 99.3; O2SAT 95
== END 2021-10-03 14:24 | disposition home health service (06) | DRG 389 ==
LOC: EMEROOARM 15:31 → 3ANU 15:31 → SUATTDRO 20:14 → 3ANU 21:22
PROVIDERS: ADMIT Internal Medicine; ATTEND Family Medicine